=== PATIENT | female | born 1990 | race Caucasian/White ===

== ENCOUNTER 2022-12-25 10:57 | Outpatient (OUT) | payer OTHER, SELFPAY ==
[2022-12-25 11:55] LABS: Basophils Percent Auto 0.2 % (0.2-2.0); Eosinophils Absolute Auto 0.1 10^3/uL (0.0-0.7); Hematocrit 41.6 % (36.0-48.0); Hemoglobin 13.6 g/dL (12.0-16.0); Immature Granulocytes Abs Auto 0.01 10^3/uL (0.00-0.03); Immature Granulocytes Pct Auto 0.2 % (0.0-0.5); Lymphocytes Absolute Auto 1.7 10^3/uL (1.2-3.8); Lymphocytes Percent Auto 30.3 % (20.5-60.0); Mean Corpuscular HGB Conc 32.7 g/dL (29.9-35.2); Mean Corpuscular Hemoglobin 25.8 pg (26.7-34.0); Mean Corpuscular Volume 78.9 fL (81.0-99.0); Mean Platelet Volume 10.2 fL (9.5-13.5); Monocytes Absolute Auto 0.4 10^3/uL (0.3-0.8); Monocytes Percent Auto 6.3 % (1.7-12.0); Neutrophils Absolute Auto 3.6 10^3/uL (1.4-6.5); Platelet Count 295 10^3/uL (150-450); Red Blood Count 5.27 10^6/uL (4.20-5.40); Red Cell Distribution Width 13.8 % (11.0-15.0); White Blood Count 5.7 10^3/uL (4.0-11.0)
--- NOTE | 2022-12-25 12:02 | ECG_ITS ---
[facility] Test Date: 2022-12-25 Pat Name: Chelsey Huynh Department: Room: - Gender: Female Dietary Aid: : 1990 Requested By: [id number] Order Number: [id number] Reading MD: VIOLETA BUCHANAN Measurements Intervals [place] Rate: 74 P: 66 AL: 184 QRS: 87 QRSD: 93 T: 23 QT: 374 QTc: 416 Interpretive Statements SINUS RHYTHM NONSPECIFIC T-WAVE ABNORMALITY No previous ECG available for comparison Electronically Signed On 12-26-2022 7:17:42 EDT by VIOLETA BUCHANAN
[2022-12-25 12:59] LABS: Alanine Aminotransferase 20 U/L (14-59); Albumin Globulin Ratio 0.9; Albumin Level 3.9 g/dL (3.4-5.0); Alkaline Phosphatase 56 U/L (46-116); Anion Gap 12.8; Aspartate Amino Transferase 14 U/L (15-37); Bilirubin Total 0.4 mg/dL (0.2-1.0); Calcium 9.1 mg/dL (8.5-10.1); Carbon Dioxide 27.3 mmol/L (21.0-32.0); Chloride 102 mmol/L (98-107); Estimated GFR (African America >60 (>=60); Estimated GFR (Non-African Ame >60 (>=60); Globulin 4.2 g/dL; Glucose 98 mg/dL (74-106); Potassium 4.1 mmol/L (3.5-5.1); Sodium 138 mmol/L (136-145); Total Protein 8.1 g/dL (6.4-8.2)
[2022-12-25 13:09] LABS: Thyroid Stimulating Hormone 1.839 uIU/mL (0.358-3.740)
== END 2022-12-25 10:58 ==
LOC: LAB 11:06
PROVIDERS: PCP Nurse Practitioner Family; Visit Provider Psychiatry & Neurology Psychiatry
DX: F42.9 Obsessive-compulsive disorder, unspecified (principal); F41.9 Anxiety disorder, unspecified; Z79.899 Other long term (current) drug therapy
CPT/HCPCS: 36415; 80053; 82306; 84443; 85025; 93005

== ENCOUNTER 2023-01-04 07:59 | Outpatient (OUT) | payer OTHER, SELFPAY ==
--- NOTE | 2023-01-04 08:08 | US_ITS ---
[address] [address] Patient Name: ROMANA VALLES MRN: [id number] date: 1990 Sex: F Assigned Patient Location: Current Patient Location: [place] Accession/Order Number: [id number] Exam Date: 01/04/2023 08:14 Report Date: 01/04/2023 08:49 At the request of: NERISSA FREEMAN Procedure: US pelvis transvaginal EXAM: US pelvis transvaginal HISTORY: . Vaginal Bleeding N93.9 . COMPARISON: None. TECHNIQUE: Transvaginal scanning was performed FINDINGS: Scanning of the pelvis demonstrates an anteverted uterus measuring 10 x 5.5 x 5 cm. Endometrial complex measures 14 mm. Right ovary measures 2.3 x 2 x 2.1 cm. Color-flow is noted. Resistive indexes 0.45. No masses are noted. Left ovary measures 3.1 x 2.3 x 2.2 cm. Color-flow is noted. Resistive indexes 0.45. Small follicles are noted. No fluid is noted in the cul-de-sac. IMPRESSION: 1. Anteverted uterus. 2. Endometrial complex is prominent measuring 14 mm. Findings could be due to the patient's menstrual cycle or endometrial hyperplasia. 3. Normal-appearing ovaries. Electronically authenticated by: GEOFF ANDREWS Date: 01/04/2023 08:49
== END 2023-01-04 08:00 ==
LOC: US 08:00
PROVIDERS: PCP Nurse Practitioner Family; Visit Provider Physician Assistant
DX: N93.9 Abnormal uterine and vaginal bleeding, unspecified (principal)
CPT/HCPCS: 76830

== ENCOUNTER 2024-11-09 07:57 | Outpatient (OUT) | payer BC, SELFPAY ==
[2024-11-09 08:52] LABS: Basophils Percent Auto 0.3 % (0.2-2.0); Eosinophils Absolute Auto 0.1 10^3/uL (0.0-0.7); Eosinophils Percent Auto 2.2 % (0.9-7.0); Hematocrit 38.7 % (36.0-48.0); Hemoglobin 12.4 g/dL (12.0-16.0); Immature Granulocytes Abs Auto 0.02 10^3/uL (0.00-0.03); Immature Granulocytes Pct Auto 0.3 % (0.0-0.5); Lymphocytes Percent Auto 33.6 % (20.5-60.0); Mean Corpuscular Hemoglobin 26.6 pg (26.7-34.0); Mean Corpuscular Volume 82.9 fL (81.0-99.0); Mean Platelet Volume 10.1 fL (9.5-13.5); Monocytes Absolute Auto 0.4 10^3/uL (0.3-0.8); Monocytes Percent Auto 6.4 % (1.7-12.0); Neutrophils Absolute Auto 3.4 10^3/uL (1.4-6.5); Neutrophils Percent Auto 57.2 % (43.0-75.0); Platelet Count 279 10^3/uL (150-450); Red Blood Count 4.67 10^6/uL (4.20-5.40); Red Cell Distribution Width 12.7 % (11.0-15.0)
[2024-11-09 09:30] LABS: Estimated Average Glucose 111 mg/dL; Glycohemoglobin A1C 5.5 % (4.5-6.2)
[2024-11-09 09:32] LABS: Alanine Aminotransferase 13 U/L (14-59); Albumin Level 3.6 g/dL (3.4-5.0); Alkaline Phosphatase 51 U/L (46-116); Anion Gap 12.2; Aspartate Amino Transferase 14 U/L (15-37); BUN Creatinine Ratio 11.8; Bilirubin Total 0.3 mg/dL (0.2-1.0); Calcium 8.8 mg/dL (8.5-10.1); Chloride 104 mmol/L (98-107); Chol HDL Ratio 2.4; Cholesterol 172 mg/dL (<=200); Estimated GFR (African America >60 (>=60 mL/min/1.73m^2); Estimated GFR (Non-African Ame >60 (>=60 mL/min/1.73m^2); Free T3 2.74 pg/mL (2.18-3.98); Globulin 3.5 g/dL; Glucose 93 mg/dL (74-106); HDL Cholesterol 72 mg/dL (40-60); Potassium 4.2 mmol/L (3.5-5.1); Sodium 140 mmol/L (136-145); Thyroid Stimulating Hormone 1.973 uIU/mL (0.358-3.740); Total Protein 7.1 g/dL (6.4-8.2); Triglycerides 45 mg/dL (<=150)
[2024-11-10 08:11] LABS: Insulin 10.2 uIU/mL (2.6-24.9)
== END 2024-11-09 07:58 | disposition home or self-care (01) ==
LOC: LAB 08:01
PROVIDERS: PCP Nurse Practitioner Family; Visit Provider Nurse Practitioner Family
DX: Z00.00 Encounter for general adult medical examination without abnormal findings (principal)
CPT/HCPCS: 36415; 80053; 80061; 82306; 83036; 83525; 83540; 84436; 84443; 84481; 85025

== ENCOUNTER 2024-11-24 10:30 | Outpatient (OUT) | payer BC, SELFPAY ==
[2024-11-24 11:45] LABS: Basophils Percent Auto 0.2 % (0.2-2.0); Eosinophils Absolute Auto 0.1 10^3/uL (0.0-0.7); Eosinophils Percent Auto 1.7 % (0.9-7.0); Hematocrit 40.5 % (36.0-48.0); Hemoglobin 13.4 g/dL (12.0-16.0); Immature Granulocytes Abs Auto 0.01 10^3/uL (0.00-0.03); Immature Granulocytes Pct Auto 0.2 % (0.0-0.5); Lymphocytes Absolute Auto 1.9 10^3/uL (1.2-3.8); Lymphocytes Percent Auto 38.9 % (20.5-60.0); Mean Corpuscular HGB Conc 33.1 g/dL (29.9-35.2); Mean Corpuscular Hemoglobin 26.7 pg (26.7-34.0); Mean Corpuscular Volume 80.8 fL (81.0-99.0); Monocytes Absolute Auto 0.4 10^3/uL (0.3-0.8); Monocytes Percent Auto 9.2 % (1.7-12.0); Neutrophils Absolute Auto 2.4 10^3/uL (1.4-6.5); Neutrophils Percent Auto 49.8 % (43.0-75.0); Platelet Count 291 10^3/uL (150-450); Red Blood Count 5.01 10^6/uL (4.20-5.40); White Blood Count 4.8 10^3/uL (4.0-11.0)
[2024-11-24 12:19] LABS: Free T4 1.32 ng/dL (0.76-1.46)
[2024-11-24 12:24] LABS: HCG Quantitative <1 mIU/mL; Thyroid Stimulating Hormone 1.598 uIU/mL (0.358-3.740)
[2024-11-24 13:12] LABS: Estimated Average Glucose 120 mg/dL; Glycohemoglobin A1C 5.8 % (4.5-6.2)
[2024-11-25 04:11] LABS: Estradiol 34.6 pg/mL (.); FSH 7.4 mIU/mL (.); Progesterone 0.3 ng/mL (.)
[2024-11-30 13:08] LABS: DHEA, Serum 803 ng/dL (31-701)
== END 2024-11-24 10:31 | disposition home or self-care (01) ==
LOC: LAB 10:32
PROVIDERS: PCP Nurse Practitioner Family; Visit Provider Obstetrics & Gynecology
DX: E28.2 Polycystic ovarian syndrome (principal); N93.9 Abnormal uterine and vaginal bleeding, unspecified
CPT/HCPCS: 36415; 82626; 82627; 82670; 83001; 83002; 83036; 84144; 84439; 84443; 84702; 85025

== ENCOUNTER 2024-11-26 21:48 | Emergency (ER) | payer BC, SELFPAY ==
[2024-11-26] VITALS (8 sets, daily range): BP systolic 118–128; BP diastolic 79–80; PULSE 80–99; TEMP 36.7; O2SAT 100; BMI 30.3
--- NOTE | 2024-11-26 22:06 | ECG_ITS ---
[facility] Test Date: 2024-11-26 Pat Name: ROMANA VALLES Department: Room: - Gender: Female Folder Machine Operator: : 1990 Requested By: [id number] Order Number: [id number] Reading MD: FLAVIO SHARIF M.D. Measurements Intervals [place] Rate: 86 P: 63 AR: 172 QRS: 98 QRSD: 88 T: 6 QT: 358 QTc: 401 Interpretive Statements 1100 Sinus rhythm Nonspecific Twave abnormality 7102 Moderate right axis deviation 9150 abnormal ECG Compared to ECG 12/25/2022 12:05:27 No significant changes Electronically Signed On 11-27-2024 18:41:44 EDT by FLAVIO SHARIF M.D.
--- NOTE | 2024-11-26 22:16 | ED.SOB1 ---
HPI - SOB/Dyspnea General Chief Complaint: Shortness of Breath/Dyspnea Stated Complaint: SOB Time Seen by Provider: 11/26/24 21:55 Source: patient Mode of arrival: Wheelchair History of Present Illness HPI Narrative: This 34-year-old female who denies tobacco use but smokes marijuana presents for evaluation of shortness of breath, generalized weakness stating that her legs feel heavy, she feels dizzy and achy all over. She has mild nausea but has not vomited. She has not been coughing. Her significant other recently recovered from an upper respiratory infection. She denies any chest pain. She has not had any fever but is having some chills. Her symptoms started earlier this morning. She is not on control. She has no lower extremity pain or swelling. She is currently on Adipex for weight loss and admits that she is not eating and drinking a lot. Related Data Home Medications ?Medication ?Instructions ?Recorded ?Confirmed citalopram 20 mg tablet 20 mg PO DAILY 11/26/24 11/26/24 metformin 500 mg tablet,extended 500 mg PO DAILY 11/26/24 11/26/24 release 24 hr phentermine 37.5 mg tablet 37.5 mg PO QAM 11/26/24 11/26/24 Allergies Allergy/AdvReac Type Severity Reaction Status Date / Time acetaminophen (From Percocet) Allergy Severe Rash Verified 11/26/24 21:57 latex Allergy Severe Rash Verified 11/26/24 21:57 oxycodone (From Percocet) Allergy Severe Rash Verified 11/26/24 21:57 Review of Systems ROS Status of ROS 10 or more systems reviewed and unremarkable except as noted in history and below PFSH PFSH Social History Little interest or pleasure in doing things: not at all Feeling down, depressed, or hopeless: not at all Exam Narrative Exam Narrative: Vital signs and Nursing Notes reviewed: Patient is afebrile with a normal pulse, normal blood pressure, she is mildly tachypneic with a respiratory to 24, she has not hypoxic with pulse ox of 100% on room air General: Awake, alert, oriented, anxious, no respiratory distress, she is speaking in complete sentences HEENT: Normocephalic atraumatic, mucous membranes are moist and pink, eyes are clear, normal conjunctiva, vision is grossly intact, posterior pharynx is normal in appearance. Neck: Supple, no meningeal signs, no anterior or posterior cervical lymphadenopathy Chest: Lungs are clear to auscultation with good air entry, there is no wheezing rhonchi or rales appreciated no accessory muscle use, patient is speaking in complete sentences-no chest wall tenderness to palpation CVS: Regular rate and rhythm S1-S2, no murmurs rubs or gallops, pulses are brisk and equal bilaterally ABD: Soft, nondistended, nontender, no rebound guarding or rigidity, bowel sounds are normal, no pulsatile masses appreciated Extremities: Moving all extremities, no lower extremity tenderness or swelling noted, negative Homans' sign, pulses are brisk and equal bilaterally Skin: Normal in appearance without rash,pallor, petechiae or purpura Neuro: No focal deficits Constitutional Vital Signs, click to edit/add: Last Vital Signs Temp 98.1 F 11/26/24 21:53 Pulse 81 11/26/24 22:50 Resp 21 H 11/26/24 22:50 BP 118/79 11/26/24 22:37 Pulse Ox 100 11/26/24 22:50 O2 Del Method Room Air 11/26/24 22:03 Course Vital Signs Vital signs: Vital Signs Temperature 98.1 F 11/26/24 21:53 Pulse Rate 89 11/26/24 21:53 Respiratory Rate 24 H 11/26/24 21:53 Blood Pressure 128/80 11/26/24 21:53 Pulse Oximetry 100 11/26/24 21:53 Temperature 98.1 F 11/26/24 21:53 Pulse Rate 81 11/26/24 22:50 Respiratory Rate 21 H 11/26/24 22:50 Blood Pressure 118/79 11/26/24 22:37 Pulse Oximetry 100 11/26/24 22:50 Oxygen Delivery Method Room Air 11/26/24 22:03 MDM - SOB/Dyspnea MDM Narrative Medical decision making narrative: This 34-year-old female who is on Adipex and uses marijuana but otherwise is a non-smoker not on control presents for evaluation of shortness of breath, weakness, dizziness, vague nausea with no vomiting or diarrhea. She denies any chest pain, dizziness or diaphoresis. Her significant other recently had an upper respiratory tract infection. Patient's vital signs are stable. She was mildly tachypneic upon arrival. Her lungs are clear with no wheezing rhonchi or rales. Pulse ox is normal at 100%. EKG is a sinus rhythm at 86 bpm. An IV was placed and she was medicated with IV fluids, Zofran and Toradol. Routine labs are reviewed. She is negative for COVID-19 and influenza. She has a normal white count and hemoglobin. Electrolytes are normal but her creatinine is mildly elevated at 1.04. Troponin and D-dimer are both normal. Chest x-ray does not show any acute findings. Reevaluation she is tolerating clear liquids. Urine is contaminated but essentially negative for infection. I explained to her that she may have some degree of dehydration and be experiencing some symptoms related to her Adipex but she is otherwise well-appearing with a normal workup and will be discharged home with recommendation to increase her p.o. intake and return the emergency department for worsening symptoms or any concerns. Lab Data Attestation: I reviewed the patient's lab results. Labs: Lab Results 11/26/24 11/26/24 11/26/24 Range/Units 22:00 22:15 23:19 WBC 6.8 (4.0-11.0) 10^3/uL RBC 5.01 (4.20-5.40) 10^6/uL Hgb 13.6 (12.0-16.0) g/dL Hct 40.1 (36.0-48.0) % MCV 80.0 L (81.0-99.0) fL MCH 27.1 (26.7-34.0) pg MCHC 33.9 (29.9-35.2) g/dL RDW 12.7 (11.0-15.0) % Plt Count 294 (150-450) 10^3/uL MPV 10.2 (9.5-13.5) fL Neut % (Auto) 35.6 L (43.0-75.0) % Lymph % (Auto) 53.7 (20.5-60.0) % Labette % (Auto) 7.3 (1.7-12.0) % Eos % (Auto) 2.9 (0.9-7.0) % Baso % (Auto) 0.4 (0.2-2.0) % Neut # (Auto) 2.4 (1.4-6.5) 10^3/uL Lymph # (Auto) 3.7 (1.2-3.8) 10^3/uL Labette # (Auto) 0.5 (0.3-0.8) 10^3/uL Eos # (Auto) 0.2 (0.0-0.7) 10^3/uL Baso # (Auto) 0.0 (0.0-0.1) 10^3/uL Abs Immat Gran (auto) 0.01 (0.00-0.03) 10^3/uL Imm/Tot Granulo (auto) 0.1 (0.0-0.5) % D-Dimer 0.39 (<=0.59) mg/L FEU Sodium 136 (136-145) mmol/L Potassium 3.6 (3.5-5.1) mmol/L Chloride 103 (98-107) mmol/L Carbon Dioxide 25.5 (21.0-32.0) mmol/L Anion Gap 11.1 BUN 11.0 (7.0-18.0) mg/dL Creatinine 1.07 H (0.55-1.02) mg/dL Est GFR ( Amer) >60 (>=60 mL/min/1.73m^2) Est GFR (Non-Af Amer) 58 L (>=60 mL/min/1.73m^2) BUN/Creatinine Ratio 10.3 Glucose 114 H (74-106) mg/dL Calcium 9.5 (8.5-10.1) mg/dL Total Bilirubin 0.6 (0.2-1.0) mg/dL AST 21 (15-37) U/L ALT 17 (14-59) U/L Alkaline Phosphatase 58 (46-116) U/L Troponin I High Sens <4.0 L (4.0-51.3) pg/mL Total Protein 7.5 (6.4-8.2) g/dL Albumin 3.6 (3.4-5.0) g/dL Globulin 3.9 g/dL Albumin/Globulin Ratio 0.9 Urine Color (YELLOW) Urine Clarity (CLEAR) Urine pH (5.0-9.0) Ur Specific [place] (1.005-1.025) Urine Protein (NEG/TRACE) mg/dL Urine Glucose (UA) (NEGATIVE) mg/dL Urine Ketones (NEGATIVE) mg/dL Urine Occult Blood (NEGATIVE) Urine Nitrite (NEGATIVE) Urine Bilirubin (NEGATIVE) Urine Urobilinogen (0.2-1.0) EU/dL Ur Leukocyte Esterase (NEGATIVE) Urine RBC (0-2) #/HPF Urine WBC (NONE SEEN) #/HPF Ur Squamous Epith Cells (NONE/RARE) #/LPF Urine Crystals (None Seen) #/HPF Urine Bacteria (NONE SEEN) #/HPF Urine Casts (NONE SEEN) #/LPF Urine Mucus (NONE SEEN) Ur Culture Indicated? Influenza Type A Ag Negative Influenza Type B Ag Negative SARS-CoV-2 Ag (CV2AG) Negative (NEGATIVE) 11/26/24 Range/Units 23:54 WBC (4.0-11.0) 10^3/uL RBC (4.20-5.40) 10^6/uL Hgb (12.0-16.0) g/dL Hct (36.0-48.0) % MCV (81.0-99.0) fL MCH (26.7-34.0) pg MCHC (29.9-35.2) g/dL RDW (11.0-15.0) % Plt Count (150-450) 10^3/uL MPV (9.5-13.5) fL Neut % (Auto) (43.0-75.0) % Lymph % (Auto) (20.5-60.0) % Labette % (Auto) (1.7-12.0) % Eos % (Auto) (0.9-7.0) % Baso % (Auto) (0.2-2.0) % Neut # (Auto) (1.4-6.5) 10^3/uL Lymph # (Auto) (1.2-3.8) 10^3/uL Labette # (Auto) (0.3-0.8) 10^3/uL Eos # (Auto) (0.0-0.7) 10^3/uL Baso # (Auto) (0.0-0.1) 10^3/uL Abs Immat Gran (auto) (0.00-0.03) 10^3/uL Imm/Tot Granulo (auto) (0.0-0.5) % D-Dimer (<=0.59) mg/L FEU Sodium (136-145) mmol/L Potassium (3.5-5.1) mmol/L Chloride (98-107) mmol/L Carbon Dioxide (21.0-32.0) mmol/L Anion Gap BUN (7.0-18.0) mg/dL Creatinine (0.55-1.02) mg/dL Est GFR ( Amer) (>=60 mL/min/1.73m^2) Est GFR (Non-Af Amer) (>=60 mL/min/1.73m^2) BUN/Creatinine Ratio Glucose (74-106) mg/dL Calcium (8.5-10.1) mg/dL Total Bilirubin (0.2-1.0) mg/dL AST (15-37) U/L ALT (14-59) U/L Alkaline Phosphatase (46-116) U/L Troponin I High Sens (4.0-51.3) pg/mL Total Protein (6.4-8.2) g/dL Albumin (3.4-5.0) g/dL Globulin g/dL Albumin/Globulin Ratio Urine Color Lt. yellow (YELLOW) Urine Clarity Sl cloudy (CLEAR) Urine pH 7.0 (5.0-9.0) Ur Specific [place] 1.010 (1.005-1.025) Urine Protein Negative (NEG/TRACE) mg/dL Urine Glucose (UA) Negative (NEGATIVE) mg/dL Urine Ketones Negative (NEGATIVE) mg/dL Urine Occult Blood Moderate A (NEGATIVE) Urine Nitrite Negative (NEGATIVE) Urine Bilirubin Negative (NEGATIVE) Urine Urobilinogen 0.2 (0.2-1.0) EU/dL Ur Leukocyte Esterase Small A (NEGATIVE) Urine RBC 0-2 (0-2) #/HPF Urine WBC 5-10 A (NONE SEEN) #/HPF Ur Squamous Epith Cells Many A (NONE/RARE) #/LPF Urine Crystals None seen (None Seen) #/HPF Urine Bacteria Moderate A (NONE SEEN) #/HPF Urine Casts None seen (NONE SEEN) #/LPF Urine Mucus None seen (NONE SEEN) Ur Culture Indicated? [place] [place] Influenza Type A Ag Influenza Type B Ag SARS-CoV-2 Ag (CV2AG) (NEGATIVE) ECG Data Attestation: I personally reviewed and interpreted this ECG as follows: (EKG interpretation sinus rhythm at 90 bpm, right axis, normal intervals, no acute ST segment elevation or T wave inversion) Discharge Plan Discharge Chief Complaint: Shortness of Breath/Dyspnea Clinical Impression: Shortness of breath, Mild dehydration Patient Disposition: Home, Self-Care Time of Disposition Decision: 00:28 Condition: Good Prescriptions / Home Meds: No Action citalopram 20 mg tablet 20 mg PO DAILY metformin 500 mg tablet extended release 24 hr 500 mg PO DAILY phentermine 37.5 mg tablet 37.5 mg PO QAM Print Language: [place] Instructions: Dehydration (ED), Shortness of Breath (ED) Referrals: DANIEL MENJIVAR [Primary Care Provider, Family Practice] - 1 week
[2024-11-26 22:26] LABS: Basophils Percent Auto 0.4 % (0.2-2.0); Eosinophils Absolute Auto 0.2 10^3/uL (0.0-0.7); Eosinophils Percent Auto 2.9 % (0.9-7.0); Hematocrit 40.1 % (36.0-48.0); Hemoglobin 13.6 g/dL (12.0-16.0); Immature Granulocytes Abs Auto 0.01 10^3/uL (0.00-0.03); Immature Granulocytes Pct Auto 0.1 % (0.0-0.5); Lymphocytes Absolute Auto 3.7 10^3/uL (1.2-3.8); Lymphocytes Percent Auto 53.7 % (20.5-60.0); Mean Corpuscular HGB Conc 33.9 g/dL (29.9-35.2); Mean Corpuscular Hemoglobin 27.1 pg (26.7-34.0); Mean Platelet Volume 10.2 fL (9.5-13.5); Monocytes Absolute Auto 0.5 10^3/uL (0.3-0.8); Monocytes Percent Auto 7.3 % (1.7-12.0); Neutrophils Absolute Auto 2.4 10^3/uL (1.4-6.5); Neutrophils Percent Auto 35.6 % (43.0-75.0); Platelet Count 294 10^3/uL (150-450); Red Blood Count 5.01 10^6/uL (4.20-5.40); Red Cell Distribution Width 12.7 % (11.0-15.0); White Blood Count 6.8 10^3/uL (4.0-11.0)
[2024-11-26] MEDS: ONDANSETRON PF 4 MG/2 ML VIAL IV (22:31)
[2024-11-26] MEDS: KETOROLAC TROMETHAMINE 30 MG/ML VIAL IVP (22:31)
[2024-11-26] MEDS: 0.9 % SODIUM CHLORIDE 1,000 ML 1000 ML IV (22:32)
[2024-11-26 22:38] LABS: Influenza Virus A Antigen Negative; Influenza Virus B Antigen Negative; Internal Control Within Normal Limits; SARS-CoV-2 Ag NEGATIVE (NEGATIVE)
[2024-11-26 22:42] LABS: Anion Gap 11.1
[2024-11-26 22:44] LABS: Alanine Aminotransferase 17 U/L (14-59); Albumin Globulin Ratio 0.9; Albumin Level 3.6 g/dL (3.4-5.0); Alkaline Phosphatase 58 U/L (46-116); Aspartate Amino Transferase 21 U/L (15-37); BUN Creatinine Ratio 10.3; Bilirubin Total 0.6 mg/dL (0.2-1.0); Calcium 9.5 mg/dL (8.5-10.1); Carbon Dioxide 25.5 mmol/L (21.0-32.0); Chloride 103 mmol/L (98-107); Estimated GFR (African America >60 (>=60 mL/min/1.73m^2); Estimated GFR (Non-African Ame 58 (>=60 mL/min/1.73m^2); Globulin 3.9 g/dL; Glucose 114 mg/dL (74-106); Potassium 3.6 mmol/L (3.5-5.1); Sodium 136 mmol/L (136-145); Total Protein 7.5 g/dL (6.4-8.2); Troponin I High Sensitivity <4.0 pg/mL (4.0-51.3)
[2024-11-26 23:40] LABS: D Dimer 0.39 mg/L FEU (<=0.59)
[2024-11-27 00:01] LABS: Bilirubin Urine NEGATIVE (NEGATIVE); Blood Urine MODERATE (NEGATIVE); Clarity Urine SL CLOUDY (CLEAR); Color Urine LT. YELLOW (YELLOW); Glucose Urine UA NEGATIVE (NEGATIVE); Ketones Urine NEGATIVE (NEGATIVE); Leukocyte Esterase Urine SMALL (NEGATIVE); Nitrite Urine NEGATIVE (NEGATIVE); Protein Urine NEGATIVE (NEG/TRACE); Urobilinogen Urine 0.2 EU/dL (0.2-1.0)
[2024-11-27 00:12] LABS: Bacteria Urine MODERATE #/HPF (NONE SEEN); Cast Seen? NONE SEEN #/LPF (NONE SEEN); Crystals Seen? None Seen #/HPF (None Seen); Mucus Urine NONE SEEN (NONE SEEN); RBC Urine 0-2 #/HPF (0-2); Squamous Epithelial Cell Urine MANY #/LPF (NONE/RARE); Urine Culture Indicated YES-FRMC
== END 2024-11-27 00:48 | disposition home or self-care (01) ==
PROVIDERS: Emergency Provider Emergency Medicine; PCP Nurse Practitioner Family
DX: R06.02 Shortness of breath (principal); E86.0 Dehydration
CPT/HCPCS: 36415; 71046; 80053; 81001; 84484; 85025; 85378; 87086; 87804; 87811; 93005; 96361; 96374; 96375; 99285; J1885; J2405

== ENCOUNTER 2024-12-11 08:13 | Outpatient (OUT) | payer BC, SELFPAY ==
--- OUTSIDE RECORDS SUMMARY | 2016-08-15 06:31 | XMS_ITS | Continuity of Care Document ---
Author Organization [facility] Address [address] [place] [address] Phone Care Team Providers Care Ship Pilot Name Role Phone Boots, , Bev Unavailable Unavailable Allergies, Adverse Reactions, Alerts Substance Reaction Status Criticality OXYCODONE HCL itchy palms, turn red, hot Active No Information acetaminophen itchy palms, turn red, hot Active No Information Medications Medication Instructions Dosage Effective Dates (start - stop) Status Comments clomiphene citrate 50 mg tablet take 2 tablet by oral route every day 100 MG - Active days 3 thru 7 of menstraul cycle Provera 10 mg tablet take 1 tablet by oral route every day 10 MG - Active take days 18-28 of cycle month Aygestin 5 mg tablet take 1 tablet po bid for four weeks - Active clomiphene citrate 50 mg tablet take 2 tablet by oral route every day 100 MG - No Longer Active days 3 thru 7 of menstraul cycle Procedures Procedure Date OFFICE/OUTPATIENT VISIT, EST Urin Pg Test Visual Color Comp 16 OFFICE/OUTPATIENT VISIT, EST Echo Transvaginal OFFICE/OUTPATIENT VISIT, EST OFFICE/OUTPATIENT VISIT, EST Post Visit Postop F/u Visit Incld Global 1 Postop F/u Visit Incld Global 1 Postop F/u Visit Incld Global 1 Routine Ob Care Incl C Sect Visit Visit Echo Pg Uterus B scan W/doc R 1 Visit Visit Visit Ob Nurse Echo Pg Uterus B scan W/doc R 1 Visit Visit Ob Nurse Visit Visit Visit Echo Pg Uterus B scan W/doc R 1 Echo Pg Uterus B scan W/doc R 1 Offic/outpt E&m Estab 5 Min Offic/outpt E&m Estab 5 Min Echo Pg Uterus B scan Complt Visit Visit Ob Nurse Ultrasound W/image Fet/mat 14 1 OB US NUCHAL LEONEL, 1 GEST CAPILLARY BLOOD DRAW Handl/convey Specmn offic To L 11 Visit Copay Received OB US < 14 WKS, SINGLE FETUS TRANSVAGINAL US, OBSTETRIC Screen Pap Obtain Prep Convey 1 Urin Pg Test Visual Color Comp 11 Initial OB New Patient Advance Directives Directive Yes / No Effective Date File Name No Information Encounters Encounter Description Practice Location Reason(s) For Visit Diagnoses Date Provider Providers Copied on Encounter [facility], [facility] [place], [address], [place] tel:[phone] [facility] No Information 7 DO Bev Reynolds. [address] [place] [address], [id number], [place]. tel:[phone] OFFICE/OUTPA TIENT VISIT, EST [facility], [facility] [place], [address], [place] tel:[phone] [place] Missed Period (chief complaint) Encounter for test, result negativeFema le infertility, unspecified 6 Adam Fabian. [facility] [address] [place], [place], [id number], [place]. tel:[phone] Referring Provider: Rui Sosa, [facility], [address]. tel:[phone] OFFICE/OUTPA TIENT VISIT, [facility], [address] [place] [address], [address], [place] tel:[phone] [place] f/up results (chief complaint) Female infertility, unspecified 6 Adam Fabian. [address] [place], [place] [address]lázaro [place], [place], [id number], [place]. tel:[phone] Referring Provider: uRi Sosa, [facility], [address]. tel:[phone] [facility], [facility] [place], [address], [place] tel:[phone] [place] No Information 6 Adam Fabian. [facility] [place], [id number], [place]. tel:[phone] Referring Provider: Rui Sosa, [facility], [address]. tel:[phone] OFFICE/OUTPA TIENT VISIT, [facility], [address] [place] [address], [address], [place] tel:[phone] [place] Infertility consult (chief complaint) Irregular menstruation , unspecifiedE ncounter for oth general cnsl and advice on procreation 6 Adam Fabian. [address] [place], [place], [id number], [place]. tel:[phone] Referring Provider: Rui Sosa, [facility] [place], [address]. tel:[phone] OFFICE/OUTPA TIENT VISIT, EST [facility], [address] [place] [address], [address], [place] tel:[phone] [place] spotting (chief complaint) Irregular Menstruation 3 Renee Bryant. [address] [place], [place] [address]lázaro [place], [place], [id number], [place]. tel:[phone] Referring Provider: Manny Mccormick, [facility], [address]. tel:[phone] Post Visit [facility], [address] [place] [address], [address], [place] tel:[phone] [place] 6wk post (chief complaint) Contraceptiv e Mangmt NecRout Postpart Follow-up 2 Renee Bryant. [facility] [place], [place], [id number], [place]. tel:[phone] Referring Provider: Manny Mccormick, [facility], [address]. tel:[phone] [facility], [address] [place] [address], [address], [place] tel:[phone] [place] rash around incision site (chief complaint) Rout Postpart Follow-up 1 Renee Bryant. [facility] [place], [id number], [place]. tel:[phone] Referring Provider: Manny Mccormick, [facility] [place], [address]. tel:[phone] [facility], [address] [place] [address], [address], [place] tel:[phone] [place] 2wk post (chief complaint) Rout Postpart Follow-up Jun-2 0 1 Renee Bryant. [address] [place], [place] [address]under[place], [place], [id number], [place]. tel:[phone] Referring Provider: Manny Mccormick, [address] [place], [place] [address] [place], [address]. tel:[phone] [facility], [address] [place] [address], [address], [place] tel:[phone] [place] staple removal (chief complaint) Rout Postpart Follow-upATT N REMOVAL OF SUTURES Jun-0 1 Renee Bryant. [address] [place], [place] [address] [place], [id number], [place]. tel:[phone] Referring Provider: Manny Mccormick, [address] [place], [place] [address] [place], [address]. tel:[phone] [facility], [address] [place] [address], [address], [place] tel:[phone] [facility] No Information 0 1 Renee Bryant. [facility] [address] [place], [id number], [place]. tel:[phone] Referring Provider: Manny Mccormick, [address] [place], [place] [address]er[place], [address]. tel:[phone] Visit [facility], [address] [place] [address], [address], [place] tel:[phone] [facility] No Information 3 0 1 Renee Bryant. [address], [place], [place], [id number], [place]. tel:[phone] Referring Provider: Manny Mccormick, [address], [place], [address]. tel:[phone] Visit [facility], [address] [facility] [place], [address], [place] tel:[phone] [place] No Information 1 Renee Bryant. [address], [place], [place], [id number], [place]. tel:[phone] Referring Provider: Manny Mccormick, [address] , [place], [address]. tel:[phone] [facility], [address] [facility] [place], [address], [place] tel:[phone] [place] No Information 1 Renee Bryant. [address], [place], [place], [id number], [place]. tel:[phone] Referring Provider: Manny Mccormick, [address] , [place], [address]. tel:[phone] Visit [facility], [address] [place], [address], [place] tel:[phone] [place] Preg W Hx Of 1 Renee Bryant. [address], [place], [place], [id number], [place]. tel:[phone] Referring Provider: Manny Mccormick, [address], [place], [address]. tel:[phone] Visit [facility], [address] [facility] [place], [address], [place] tel:[phone] [place] Preg W Hx Of 1 Renee Bryant. [address], [id number], [place]. tel:[phone] Referring Provider: Manny Mccormick, [address] [place], [address]. tel:[phone] Visit Ob Nurse [facility], [address] [place] [address], [address], tel:[phone] [place] ROCÍO (chief complaint) No Information 1 Manny Rubio. [address], [place], [address], [place]. tel:[phone] Referring Provider: Manny Mccormick, [facility] [place], [address]. tel:[phone] [facility], [address] [place] [address], [facility], tel:[phone] [facility] No Information 1 Renee Bryant. [facility] [address] Jesus[address] [place], [place], [id number], [place]. tel:[phone] Referring Provider: Manny Mccormick, [facility] [place], [address]. tel:[phone] Visit [facility], [address] [place] [address], [address], [place] tel:[phone] [place] ROCÍO (chief complaint) Preg W Hx Of 1 Renee Bryant. [address] [place], [place], [id number], [place]. tel:[phone] Referring Provider: Manny Mccormick, [facility] [place], [address]. tel:[phone] Visit Ob Nurse [facility], [address] [place] [address], [address], tel:[phone] [place] ROCÍO (chief complaint) No Information Sep-2 1 Manny Rubio. [address], [address], [place], [address], [place]. tel:[phone] Referring Provider: Manny Mccormick, [facility] [address], [place], [address]. tel:[phone] Visit [facility], [address] [place] [address], [address], tel:[phone] [place] ROCÍO (chief complaint) No Information Mar- 1 Renee Bryant. [facility] [address], [id number], [place]. tel:[phone] Referring Provider: Manny Mccormick, [facility] [place], [address]. tel:[phone] Visit [facility], [address] [place] [address], [address], tel:[phone] [place] ROCÍO (chief complaint) No Information Sep-0 1 Renee Bryant. [facility] [place] [address], [id number], [place]. tel:[phone] Referring Provider: Manny Mccormick, [facility] [place], [address]. tel:[phone] Visit [facility], [address] [place] [address], [address], tel:[phone] [place] ROCÍO (chief complaint) No Information 1 Renee Bryant. [facility] [address], [id number], [place]. tel:[phone] Referring Provider: Manny Mccormick, [address] [place], [place] [address]bird , [place], [address]. tel:[phone] [facility], [address] [place] [address], [address], tel:[phone] [place] No Information 1 Renee Bryant. [address] [place], [place] [address] , [place], [place], [id number], [place]. tel:[phone] Referring Provider: Manny Mccormick, [address] [place], [place] [address], [address]. tel:[phone] [facility], [address] [place] [address], [facility], tel:[phone] [place] No Information 1 Renee Bryant. [address] [place], [place] [address], [id number], [place]. tel:[phone] Referring Provider: Manny Mccormick, [address] [place], [place] [address], [address]. tel:[phone] Offic/outpt E&m Estab 5 Min [facility], [address] [place] [address], [facility], tel:[phone] [place] ROCÍO (chief complaint) No Information 1 Manny Rubio. [address], [address], [place], [address], [place]. tel:[phone] Referring Provider: Manny Mccormick, [address] [place], [place] [address], [address]. tel:[phone] Offic/outpt E&m Estab 5 Min [facility], [address] [place] [address], [address], [place] tel:[phone] [place] ROCÍO (chief complaint) No Information 0 1 Manny Rubio. [address], [address], [place], [address], [place]. tel:[phone] Referring Provider: Manny Mccormick, [address] [place], [place] [address], [address]. tel:[phone] [facility], [address] [place] [address], [address], [place] tel:[phone] [place] No Information 0 1 Renee Bryant. [address] [place], [place] [address], [id number], [place]. tel:[phone] Referring Provider: Manny Mccormick, [address] [place], [place] [address], [address]. tel:[phone] Visit [facility], [address] [place] [address], [address], [place] tel:[phone] [place] ROCÍO (chief complaint) No Information 1 Renee Bryant. [address] [place], [place] [address], [id number], [place]. tel:[phone] Referring Provider: Manny Mccormick, [address] [place], [place] [address], [address]. tel:[phone] Visit Ob Nurse [facility], [address] [place] [address], [address], [place] tel:[phone] [place] ROCÍO (chief complaint) No Information 1 Sybil Snider. [address] [place], [place], [id number], [place]. tel:[phone] Referring Provider: Manny Mccormick, [facility] [place], [address]. tel:[phone] [facility], [address] [place] [address], [facility], tel:[phone] [place] No Information 1 Renee Bryant. [address] [place] [address], [id number], . tel:[phone] Referring Provider: Manny Mccormick, [address] [place] [address], [address]. tel:[phone] Visit [facility], [address] [place] [address], [facility], tel:[phone] [place] ROCÍO (chief complaint) No Information 1 Renee Bryant. [address] [place] [address], [id number], . tel:[phone] Referring Provider: Manny Mccormick, [address] [place] [address], [address]. tel:[phone] Initial OB New Patient [facility], [address] [place] [address], [facility], tel:[phone] [place] NOB (chief complaint) UTERINE SIZE DORI-ANTEPARP reg W Hx Of AbortionScre en Mal Neop-cervix 1 Renee Bryant. [address] [place], [place] [address]radhaavi [place], [id number], . tel:[phone] Referring Provider: Manny Mccormick, [address] [place], [place] [address] [place], [address]. tel:[phone] Family History Family Member Type Diagnosis Age At Onset Paternal grandmother Problem (finding) malignant neopl asm of pancreas 84 Payers Payer name Insurance type Covered alliance party ID Authoriza tion(s) No Information Social History Type Description Quantity Date Captured Comments Sex Female Smoking Status No Information Chief Complaint And Reason For Visit No Information Reason For Referral Reason For Referral No Information Plan Of Treatment Date Type Action Status Referral Ordered: Hysterosalpingography rad S & ordered Future Order: Lab Order Progenit y - Ovarian Assessment Report ([id number]), Ordered on: Ordered Future Order: Radiology Order US - Pelvic with Endo Vag ([id number]), Sent on: Sent History Of Present Illness Encounter Date Complaint History Of Prese nt Illness Missed Period OVULATED 2/3 MAYELA ES WITH CLOMID- PREG TEST NEG TODAY- RESTART PROVERA AND CLOMID NEXT MONTH- CHECK OAR DAY 3 OF CYCLE- IF FAILS TO CONCEIVE WITH 6 CYCLES OF OVULATION WITH CLOMID- THEN REFER ONTO LASHONDA f/up results infertile past y ear- still needs to do SA-nl hsg and tsh and prolactin- not ovulating per ovulation testing - menses q 26-30 days-will start provera days 18-28 and clomid days 3-7 of next cycle with ovulation testing days 11-21 and timed intercourse then if ovulatory- understands instructions- risks of multiples discussed Infertility consult unable to co nceive past year- no ovulation past momnth with kits- periods irregular- no prior med hx- proceed with tsh-prolactin- hsg- SA- pelvic sono-then after all labs reviewed- discuss next appt starting provera and clomid- Functional Status Date Functional Assessmen t No Information Instructions Date Instruction Additional Infor mation No Information Assessments Type Assessment Date No Information Patient Care Teams Name Effective Dates (start - stop) Status Members No Information
--- OUTSIDE RECORDS SUMMARY | 2017-01-10 02:33 | XMS_ITS | Continuity of Care Document ---
Author Organization [facility] Address [address] [place] [address] Phone Care Team Providers Care Sales Enablement Lead Name Role Phone Bev Yap Unavailable Unavailable Allergies, Adverse Reactions, Alerts Substance Reaction Status Criticality OXYCODONE HCL Itching Active No Information acetaminophen Itching Active No Information No Known Drug Allergies Active No I nformation Medications Medication Instructions Dosage Effective Dates (start - stop) Status Comments FLUOXETINE HCL 20 MG CAPSULE TAKE ONE CAPSULE BY MOUTH IN THE MORNING 20 MG - Active FLUOXETINE HCL 20 MG CAPSULE TAKE ONE CAPSULE BY MOUTH IN THE MORNING 20 MG - No Longer Active Procedures Procedure Date Offic/outpt E&m Estab [facility] Offic/outpt E&m Estab [facility] Offic/outpt E&m Estab [facility] Offic/outpt E&m Estab [facility] Offic/outpt E&m Estab [facility] Pt Not Seen Offic/outpt E&m Estab [facility] [place] 4 Agt-immunassay Dir Obs; Strep 1 Offic/outpt E&m Estab Mod-wy 2 11 Offic/outpt E&m Estab [facility] 0 Agt-immunassay Dir Obs; Strep 0 Offic/outpt E&m Estab Mod-wy 2 10 Offic/outpt E&m Estab Mod-hi 2 10 Offic/outpt E&m Estab Low-mod 9 Offic/outpt E&m Estab Low-mod 9 Offic/outpt E&m Estab Mod-hi 2 09 Ua Dip Stik/tablt;wo Micro Non 09 Offic/outpt E&m New Mod Sever 9 Advance Directives Directive Yes / No Effective Date File Name No Information Encounters Encounter Description Practice Location Reason(s) For Visit Diagnoses Date Provider Providers Copied on Encounter [facility], [address] [place] [address], [id number] , tel: [phone] [facility] No Information 7 Tim Pablo. [address] [place] [address], [id number], [place]. tel:[phone] [facility], [address], [id number] , [place] tel: [phone] [facility] No Information 7 Tim Pablo. [address] [place] [address], [id number], [place]. tel:[phone] Offic/outpt E&m Estab Lowmod [facility], [address], [id number] , tel: [phone] [facility] ocd (chief complaint) Body mass index (BMI) 26.0-26.9, adultPersistent anxiety depressionObsessive -compulsive disorder [address] Pablo[address] [place] [address], [id number], [place]. tel:[phone] Offic/outpt E&m Estab Lowmod [facility], [address] [place] [address], [id number] , tel: [phone] [facility] f/u meds (chief complaint) Obsessive-compulsiv e disorders 5 Tim GRADUATE STUDENT INSTRUCTOR-C Bev. [address] [place] [address], [id number], [place]. tel:[phone] Offic/outpt E&m Estab Lowmod [facility], [address] [place] [address], [id number] , [place] tel: [phone] [facility] depression- med review (chief complaint) BMI 25.0-25.9,ADULTObse ssive-compulsive disorders 4 Tim GRADUATE STUDENT INSTRUCTOR-C Bev. [address] [place] [address], [id number], [place]. tel:[phone] [facility], [address], [id number] , [place] tel: [phone] [facility] OCD (chief complaint) Obsessive-compulsiv e disorders 4 Tim MARTINEZP-C Bev. [address], [id number], [place]. tel:[phone] [facility], [address] [place] [address], [id number] , [place] tel: [phone] [facility] depression (chief complaint)m issed period (chief complaint) Depression W/AnxeityCONTRACEPT RUBY MANGMT NEC 4 Tim GRADUATE STUDENT INSTRUCTOR-C Bev. [address], [id number], [place]. tel:[phone] Offic/outpt E&m Estab Lowmod [facility], [address] [place] [address], [id number] , [place] tel: [phone] [facility] depression (chief complaint) Depression W/AnxeityOBSESSIVE- COMPULSIVE DIS 4 Tim Pablo. [address] [place] [address], [id number], [place]. tel:[phone] [facility], [address], [id number] , [place] tel: [phone] [facility] No Information 1 Tree [facility]. [address], [id number], [place]. tel:[phone] Offic/outpt E&m Estab Mod-hi 2 [facility], [address], [id number] , [place] tel: [phone] [facility] cough (chief complaint) Throat PainVertigo/Light headedness 1 Tree [facility]. [address], [id number], [place]. tel:[phone] Offic/outpt E&m Estab Low-mod [facility], [address], [id number] , [place] tel: [phone] [facility] cold symptoms (chief complaint) Pharyngitis Acute 0 Jay Ascencio. [address] [facility], [address], [address], [place]. tel:[phone] Offic/outpt E&m Estab Mod-hi 2 [facility], [address], [id number] , [place] tel: [phone] [facility] cold symptoms (chief complaint) Congestion Nasal/Sinuses 0 Tree [facility] Or[facility]. [address], [id number], [place]. tel:[phone] Offic/outpt E&m Estab Mod-hi 2 [facility], [address], [id number] , [place] tel: [phone] [facility] headache (chief complaint) HeadacheVertigo/Lig ht headednessDepressiv e Disorder Nec [address] Tree Ortega. [address] [place], [place], [id number], [place]. tel:[phone] Offic/outpt E&m Estab Low-mod [facility], [address] [place] [address], [id number] , [place] tel: [phone] [facility] cough (chief complaint) Bronchitis AcuteBronchitis Acute 3200 9 Dilip Iglesias. [address] [place], [place], [id number], [place]. tel:[phone] Offic/outpt E&m Estab Low-mod [facility], [address] [place] [address], [id number] , [place] tel: [phone] [facility] cough (chief complaint) Viral Infection Nos 6200 9 Tree [facility] Ortega. [address] [place], [place], [id number], [place]. tel:[phone] Offic/outpt E&m Estab Mod-hi 2 [facility], [address] [place] [address], [id number] , [place] tel: [phone] [facility] Note Return to work (chief complaint) Headache [address], [place], [address], [place]. tel:[phone] Offic/outpt E&m New Mod Sever [facility], [address] [place], [id number] , [place] tel: [phone] [facility] Urinary problems (chief complaint) No Information 8-200 9 Tree [facility] Or[facility]ga. [address] [place], [place], [id number], [place]. tel:[phone] Family History Family Member Type Diagnosis Age At Onset Father Problem (finding) hypertension Father Problem (finding) diabetes melli tus in first degree relative Payers Payer name Insurance type Covered constitution party ID Authorjarett botello(s) Self Pay CI Social History Type Description Quantity Date Captured Comments Sex Female Smoking Status No Information Chief Complaint And Reason For Visit No Information Reason For Referral Reason For Referral No Information Plan Of Treatment Date Type Action Status Goal H&P. Due on due Goal Influenza vaccine. Due on due Goal PAP. Due on due Goal Breast exam. Due on 017 due Goal PERSONAL PROPERTY ASSESSOR exam. Due on due Goal Dietary management education , guidance, and counseling completed Goal Breast exam. Due on 014 due Goal PERSONAL PROPERTY ASSESSOR exam. Due on due Goal Influenza vaccine. Due on due Goal Diabetes Screening. Due on due Goal H&P. Due on due Goal PAP. Due on due Goal Depression screening. Due on due Goal Diabetes Screening. Due on due Goal PAP. Due on due Goal PERSONAL PROPERTY ASSESSOR exam. Due on due Goal Breast exam. Due on 014 due Goal Influenza vaccine. Due on due Goal H&P. Due on due Goal Dietary management education , guidance, and counseling completed Goal Diabetes Screening. Due on A due Goal PAP. Due on due Goal Influenza vaccine. Due on due Goal H&P. Due on due History Of Present Illness Encounter Date Complaint History Of Prese nt Illness ocd stopped fluoxeti n about 1 year ago, was hoping for a and wanted to be off all medications. she admits that she has been ok for a few months but her symptoms of anxiety, depression, and obsessive thoughts about fear of being a bad mom have progressively worsened over the last 6 months. she has talked with her HOOP PUNCH AND COILER OPERATOR who agrees with her restarting her medications and that she can continue it through . not suicidal. f/u meds taking the fluox etine every day, OCD, depression, and anxiety stable. is contemplating trying for another and would like to not take any medication during so asking about how to wean off depression-med review (comments) feels like the fluoxetine is working better, not having as many of her depressive symptoms. still has some days where she feels her ocd is difficult to manage but these days are rare now. will get fears that something will happen to her son. feels like this is improving, denies any thoughts of suicide or feelings that she will want to her herself or anyone else. feels like her mood is more stable than it has been in a long time. not seeing the counselor as much as she was depression-med review OCD tried higher dos e of paroxetine but made her unable to function due to extreme fatigue. feels like the paroxetine is not controlling her symptoms. is also seeing a therapist who recommended medication review. admits OCD is not under good control. mentions unfounded fears that she is going to hurt someone. states she does not want to hurt anyone but for example fears she will not make happy or she will parent wrong and her son will grow up a bad person. states these thoughts have caused a severe depression. states she does not want to hurt herself but feels at times she feels everyone else would be better off if she was . no suicidal plans and states she would never really hurt herself.does not have insurance so cost is an issue when deciding on meds. will see psych if cannot get meds stable Functional Status Date Functional Assessmen t No Information Instructions Date Instruction Additional Infor hussein Restart the fluoxeti ne which worked well for you in the past. Headache and nausea are potential side effects when you first start taking it. It can take 1-2 weeks to start to notice any benefit and up to 4-6 weeks to feel the full benefit. Follow-up in 6 weeks to see how you are doing or sooner if needed. Related to Persistent anxiety depression Dietary management e ducation, guidance, and counseling Related to Body mass index (BMI) 26.0-26.9, adult You are doing well o n the fluoxetine. If you would like to try to wean off, take 1/2 tablet for 1 week, then 1/2 tablet for 1 week then stop. You can restart the medication if your symptoms are not well controlled. Follow-up every 6 months and as needed. Related to Obsessive-compulsive disorders You are doing well o n the fluoxetine, continue to take it daily. We can increase the dose if needed, contact me if you notice your down symptoms returning again. You are going to journal all the good and positive things to focus on to help manage your fears. Follow-up in 6 months or sooner if needed. Related to Obsessive-compulsive disorders Dietary management e ducation, guidance, and counseling Related to BMI 25.0 to 25.9 Change the paroxitin e to fluoxetine, take 1 daily. We will adjust the dose every 2-3 weeks if needed. Continue to see your therapist.Consider seeing a psychitrist for medication management if you are not controlled.Discussed calling 911 or going to the ER if you have any thoughts of wanting to hurt yourself or anyone else. Suicide hotline information provided. [place] Suicide Hotline 169-036-1894 (toll free ) http://www.azspc.org/ Related to Obsessive-compulsive disorders Prescribe medications Related to Congestion Nasal/Sinuses Review medications Related to Co ngestion Nasal/Sinuses Review medication side effects R elated to Congestion Nasal/Sinuses Prescribe medications Related to UTI Review medications Related to UT I Review medication side effects R elated to UTI Order labs/studies Related to UT I Call if symptoms persist Related to UTI Assessments Type Assessment Date No Information Patient Care Teams Name Effective Dates (start - stop) Status Members No Information
--- OUTSIDE RECORDS SUMMARY | 2024-10-13 04:30 | XMS_ITS ---
Author Organization [facility] Address [address] [place] [address] Care Team Providers Care Pet Store Merchandiser Name Role Phone Rita Liang Primary Care Provider Reyna Al [phone] REASON FOR VISIT 2 week f/u Encounters Encounter [facility] Date [facility] [address] [place] [address] 10/13/2024 Reyna Al Plan Of Treatment Next Appt Details Provider Name:Lara Manuel, 03/19/2025 09:00:00 AM, [address] [place], [address], Progress Notes * REENAABBEADARSHOB: 8 (34 yo F)Acc No.[id number]:10/13/2024 F/U - Patient Patient: ABBE JEAN-BAPTISTEHANIE Provider: Brad Al LPC :1990 A ge:34 Y S ex:Female Date:10/13/2024 Address:[address] [place] [address] Pcp:Rita Liang Subjective: * Chief Complaints: * 1 . 2 week f/u. Objective: Therapeutic Interventions: Assessment: Plan: * Images: Care Plan Details* * Electronic signature of Katarina Al LPC on 12/11/2024 at 08:19 AM EDT Sign off status: Pending * Provider: Brad Al LPC Date: 0 10/13/2024 Generated for Rudy mercer/Umesh/Kwabena on: 0 12/11/2024 08:19 AM EDT
--- OUTSIDE RECORDS SUMMARY | 2024-10-27 04:30 | XMS_ITS ---
Author Organization [facility] es Address [address] [place] [address] Care Team Providers Care Landscape Crew Member Name Role Phone Rita Liang Primary Care Provider Reyna Al [phone] REASON FOR VISIT 2 week f/u Encounters Encounter Location Date Provider Diagnosis [facility] [address] [place] [address] 10/27/2024 Reyna Al Plan Of Treatment Next Appt Details Provider Name:Lara Manuel, 03/19/2025 09:00:00 AM, [address] [place], [address], Progress Notes * REENA ABBEADARSHOB: 8 (34 yo F)Acc No.[id number]:10/27/2024 F/U - Patient Patient: ABBE JEAN-BAPTISTEHANIE Provider: Brad Al LPC :1990 A ge:34 Y S ex:Female Date:10/27/2024 Address:[address] [place] [id number] Pcp:Rita Liang Subjective: * Chief Complaints: * 1 . 2 week f/u. Objective: Therapeutic Interventions: Assessment: Plan: * Images: Care Plan Details* * Electronic signature of Katarina Al LPC on 12/11/2024 at 08:19 AM EDT Sign off status: Pending * Provider: Brad Al LPC Date: 0 10/27/2024 Generated for Rudy mercer/Umesh/Kwabena on: 0 12/11/2024 08:19 AM EDT
--- OUTSIDE RECORDS SUMMARY | 2024-11-05 04:30 | XMS_ITS ---
Author Organization [facility] in [place] Address [address] [place] [address] Care Team Providers Care Assistant Clinical Nurse Manager Name Role Phone Debbie Peterson Primary Care Provider Allergies Allergen (clinical drug ingredient) Drug/Non Drug Allergy documented on EMR Reaction Allergy Type Onset Date Status acetaminophen / oxycodone Percocet hives Drug Allergy Active REASON FOR VISIT weight loss/ spotting in between periods, also noticing hair on her chin and chest Medications Medication SIG (Take, Route, Frequency, Duration) Notes Start Date End Date Status Adipex-P 37.5 MG 1 tablet before torsten kfast Orally Once a day for 30 days 11/05/2024 Active Citalopram Hydrobromide 20 MG TAKE 1 TABLET BY MOUTH EVERY DAY FOR 30 DAYS for 90 Active Social History Tobacco Use: Social History Observation Description Date Details (start date - stop date) Never Smoker NA - NA Tobacco Control (Standard) Question Answer Notes Tobacco use: Nonsmoker AUDIT-C (Standard) Question Answer Notes Did you have a drink containing alcohol in the p ast year? No Points 0 Interpretation Negative Problems Problem Type SNOMED Code ICD Code Onset Dates Problem Status W/U Status Risk Notes Problem Menstrual spotting (N92.0) Active confirmed Problem Obese class I (finding) (67897887576 4107) Class 1 obesity (E66.9) Active confirmed Vital Signs Blood pressure systolic 118 mm Hg 11/06/19 25 Blood pressure diastolic 64 mm Hg 025 Height 63 in 11/05/2024 Weight 174 lbs 11/05/2024 BMI 30.82 kg/m2 11/05/2024 Encounters Encounter Location Date Provider Diagnosis [facility] [address] [place] [address] 11/05/2024 Debbie Peterson Class 1 obesity E66. 9 ; Menstrual spotting N92.0 and Wellness examination Z00.00 Assessments Encounter Date Diagnosis (ICD Code) Assessment Notes Treatment Notes Treatment Clinical Notes Section Notes 11/05/2024 Class 1 obesity (ICD-10 - E66.9) work on diet handouts given CSA signed OARRS reviewed fu 1m 11/05/2024 Menstrual spotting (ICD-10 - N92.0) is due for OBGYN visit, going to call and fu Erin 11/05/2024 Wellness examination (ICD-10 - Z00.00) Plan Of Treatment Medication Medication Name Sig Start Date Stop Date Notes Adipex-P 37.5 MG 1 tablet before torsten kfast Orally Once a day for 30 days 11/05/2024 Treatment Notes Assessment Notes Class 1 obesity work on diet handouts given CSA signed OARRS reviewed fu 1m Menstrual spotting is due for OBGYN vis it, going to call and fu Erin Pending Test Test Name Order Date HEMOGLOBIN A1C (GLYCO) 11/05/2024 IRON, TOTAL 11/05/2024 LIPID PANEL (CHOL/TRIG/HDL/LDL) 11/06/19 25 VITAMIN D, 25 LEVEL (TOTAL) 11/05/2024 Insulin Level 11/05/2024 THYROID PANEL (T4/TSH/FREE T3) 5 CMP (COMP MET RUIZ) w/eGFR CKD-EPI 2024 CBC WITH DIFF 11/05/2024 Next Appt Details Follow Up: 4 Weeks,prn, Reas on: Provider Name:Debbie araya, 01/07/2025 08:30:00 AM, [address] [place], [address], Progress Notes * Chelsey HUYNH CDOB: [birth year] (34 yo F)Acc No.[id number]:11/05/2024 Progress Note Patient: Beka JEAN-BAPTISTEhanhedy Lopez Provider: Min Peterson ([facility]), BUTTON MAKER :1990 A ge:34 Y S ex:Female Date:11/05/2024 Address:[facility] [phone] Check In:08:31 AM ESTCheck O ut:09:01 AM EST Subjective: * Chief Complaints: * 1 . Weight loss/ spotting in between periods, also noticing hair on her chin and chest. * HPI: D epression Screening: PHQ-9 L ittle interest or pleasure in doing things?Not at all F eeling down, depressed, or hopeless M ore than half the days T rouble falling or staying asleep, or sleeping too much M ore than half the days F eeling tired or having little energy S everal P oor appetite or overeating M ore than half the days F eeling bad about yourself or that you are a failure, or have let yourself or your family down N early every day T rouble concentrating on things, such as reading the newspaper or watching television S ever M oving or speaking so slowly that other people could have noticed; or the opposite, being so fidgety or restless that you have been moving around a lot more than usual S ever T houghts that you would be better off or of hurting yourself in some way S ever (Consider Suicide Assessment Risk) T otal Score 1 3 I nterpretation M oderate Depression G eneral: started working out , 15 min eliptical, 10 min weights EOD gained weight working on diet, cut out desserts, no snacks after dinner trying to eat less more spotting between periods no BCP periods little irregular labs will follow up with Erin 2 cats in house and allergies worse. * ROS: G eneral/Constitutional: Patient complaining of u nable to lose wt excess hair growth, menstrual spotting. F ever?denies. H eadache d enies. W eight loss d enies. O phthalmologic: Discharge d enies. E ye Pain d enies. I tching and redness d enies. E NT: Nasal discharge d enies. N vandana congestion d enies.?Sore throat d enies. C ardiovascular: Chest tightness/ heavy pressure d enies. R apid heart rate d enies. S welling of extremities d enies. C hest pain d enies. ? R espiratory: Productive cough d enies. C hest pain d enies. C ough d enies. S hortness of breath d enies. W heezing d enies. ? G astrointestinal: Abdominal pain d enies. C onstipation d enies. D ecreased appetite d enies. D iarrhea d enies. N ausea d enies. V omiting?denies. G enitourinary: Urinary incontinence d enies. P ainful urination d enies. M usculoskeletal: Back pain d enies. N andres pain d enies. M uscle aches d enies. S kin: Rash d enies. S kin lesion(s) d enies. ? * Active Problem List F42.9 OCD (obsessive compu lsive disorder) Modified On:01/14/2024W/U Status:confirmed E66.9 Class 1 obesity Modified On:11/05/2024W/U Status:confirmed N92.0 Menstrual spotting Modified On:11/05/2024/U Status:confirmed * Medical History: O cd, Adhd. * Surgical History: c section x2 2010 and 2020 . * Family History: F ather: alive, diagnosed with Diabetes mellitus without mention of complication, type II or unspecified type, not stated as uncontrolled, Unspecified essential hypertension. M other: alive. Brother(s): alive. S ister(s): alive. 1 brother(s) , 1 sister(s) . 2 son(s) - healthy. . * Social History: T obacco Use: T obacco Control (Standard) T obacco use: N onsmoker D rug/Alcohol: A THIAGO-C (Standard) D id you have a drink containing alcohol in the past year? N o P oints 0 I nterpretation N egative * Medications: T aking Citalopram Hydrobromide 20 MG Tablet TAKE 1 TABLET BY MOUTH EVERY DAY FOR 30 DAYS , Medication List reviewed and reconciled with the patient * Allergies: P ercocet: hives. Objective: * Vitals: W t:174lbs, Ht: 63 in, BP:118/64mm Hg, BMI:30.82Index, Ht-cm: 160.02 cm, Wt-k.93 kg. * Examination: G eneral Examinations: GENERAL APPEARANCE: a lert and oriented, in no acute distress, obese. EYES: c onjunctiva normal, sclera non-icteric. NOSE: n ormal external appearance. LUNGS: c lear to auscultation bilaterally. CARDIO: r egular rate and rhythm, S1, S2 normal. ABDOMEN: s oft, nontender. MUSCULOSKELETAL: G ait and station normal. SKIN: w arm and dry. Assessment: * Assessment: 1. C lass 1 obesity - E66.9 (Primary) 2 . M enstrual spotting - N92.0 ? 3 . [facility] - [facility].00 Plan: * Treatment: 2. M enstrual spotting Notes: is due for OBGYN visit, going to call and fu Erin 3. [facility] examination L AB: HEMOGLOBIN A1C (GLYCO) L AB: IRON, TOTAL L AB: LIPID PANEL (CHOL/TRIG/HDL/LDL) L AB: VITAMIN D, 25 LEVEL (TOTAL) L AB: Insulin Level L AB: THYROID PANEL (T4/TSH/FREE T3) L AB: CMP (COMP MET RUIZ) w/eGFR CKD-EPI L AB: CBC WITH DIFF * Preventive Medicine: Screenings/Counseling: B NH ACTION PLAN Above Normal BMI Follow-up D ietary management education, guidance, and counseling * Follow Up: 4 Weeks,prn * * Electronically signed by Mercedez Peterson NP, PERINATAL BREASTFEEDING ASSISTANT.BUTTON [id number] on 11/06/2024 at 10:42 AM EDT Sign off status: Completed Visit Status: C HK (Check Out) true * Provider: Min Peterson ([facility]), BUTTON MAKER Date: 0 11/05/2024 Generated for Rudy mercer/Umesh/eTranabitting on: 0 12/11/2024 08:15 AM EDT History and Physical Notes * HPI (History of Present Illness) Category Sub-Category Detail Notes Category Not es Depression Screening PHQ-9 Little inte rest or pleasure in doing things: Not at all Feeling down, depressed, or hopeless: Mo re than half the days Trouble falling or staying a sleep, or sleeping too much: More than half the days Feeling tired or having little energy: S everal days Poor appetite or overeating: More than h [facility] the days Feeling bad about yourself o r that you are a failure, or have let yourself or your family down: Nearly every day Trouble concentrating on thi ngs, such as reading the newspaper or watching television: Several days Moving or speaking so slowly that other people could have noticed; or the opposite, being so fidgety or restless that you have been moving around a lot more than usual: Several days Thoughts that you would be b kalpesh off or of hurting yourself in some way: Several days (Consider Suicide Assessment Risk) Total Score: 13 Interpretation: Moderate Depression General started working out , 15 min eliptical, 10 min weights EOD gained weight working on diet, cut out desserts, no snacks after dinner trying to eat less more spotting between periods no BCP periods little irregular labs will follow up with Erin 2 cats in house and allergies worse Examination Category Sub-Category Detail Notes Category Not es General Examinations GENERAL APPEARANCE: alert a nd oriented, in no acute distress, obese EYES: conjunctiva normal, sclera non-icteric EARS: NOSE: normal external appe arance THROAT: CARDIO: regular rate and rhy thm, S1, S2 normal LUNGS: clear to auscultatio n bilaterally ABDOMEN: soft, nontender SKIN: warm and dry BACK: MUSCULOSKELETAL: Gait and station nor mal LYMPH NODES:
--- OUTSIDE RECORDS SUMMARY | 2024-11-09 10:25 | XMS_ITS ---
Author Organization [facility] in [place] Address [address] [place] [address] Care Team Providers Care Talent Recruiter Name Role Phone Debbie Peterson Primary Care Provider REASON FOR VISIT Lab Results Medications Medication SIG (Take, Route, Frequency, Duration) Notes Start Date End Date Status Vitamin D3 50 MCG (1999 UT) 1 capsule Orally Once a day for 30 day(s) 11/09/2024 Active Encounters Encounter Location Date Provider Diagnosis [facility] [address] [place] [address] 11/09/2024 Debbie Peterson Plan Of Treatment Medication Medication Name Sig Start Date Stop Date Notes Vitamin D3 50 MCG (2000 UT) 1 capsule Or ally Once a day for 30 day(s) 11/09/2024 Next Appt Details Provider Name:Debbie araya, 01/07/2025 08:30:00 AM, [address] [place], [address], Progress Notes * Chelsey HUYNH CDOB: [birth year] (34 yo F)Acc No.[id number]:11/09/2024 Patient: Dian CHOEChelsey Dozier :1990 A ge:34 Y S ex:Female Address:[address] [place] [address], [address] * Refills Start Vitamin D3 Capsule, 50 MCG (2000 UT), Orally, 30, 1 capsule, Once a day, 30 day(s), Refills=11 Subjective: * Chief Complaints: * L ab Results * Medical History: * Surgical History: * Hospitalization/Major Diagno stic Procedure: * Medications: Objective: * Vitals: * Physical Examination: Assessment: Plan: * Treatment: * Procedure Codes: * true * Date: Generated for Rudy mercer/Umesh/Kwabena on: 0 12/11/2024 08:17 AM EDT
--- OUTSIDE RECORDS SUMMARY | 2024-11-10 05:30 | XMS_ITS ---
Author Organization [facility] es Address [address] [place] [address] Care Team Providers Care Retail Manager In Training Name Role Phone Rita Liang Primary Care Provider [phone] Reyna Al [phone] REASON FOR VISIT 2 week f/u Encounters Encounter Location Date Provider Diagnosis [facility] [place] [address] [place] [address] 11/10/2024 Reyna Al Plan Of Treatment Next Appt Details Provider Name:Lara Manuel, 03/19/2025 09:00:00 AM, [address] [place], [address], Progress Notes * REENA ABBEADARSHOB: 8 (34 yo F)Acc No.[id number]:11/10/2024 F/U - Patient Patient: ABBE JEAN-BAPTISTEHANIE Provider: Brad Al LPC :1990 A ge:34 Y S ex:Female Date:11/10/2024 Address:[address] [place] [address] Pcp:Rita Liang Subjective: * Chief Complaints: * 1 . 2 week f/u. Objective: Therapeutic Interventions: Assessment: Plan: * Images: Care Plan Details* * Electronic signature of Katarina Al LPC on 12/11/2024 at 08:19 AM EDT Sign off status: Pending * Provider: Brad Al LPC Date: 0 11/10/2024 Generated for Rudy mercer/Umesh/Kwabena on: 0 12/11/2024 08:19 AM EDT
--- OUTSIDE RECORDS SUMMARY | 2024-11-30 10:29 | XMS_ITS ---
Author Name Auto Generated Organization [facility] Care Team Providers Care Roll Threader Operator Name Role Phone ZANDRA, ERNESTINA Attending Unavailable PROBLEMS No Problem Records Found PROCEDURES No Procedure Records Found RESULTS US PELVIC COMPLETE W/ TV Observed: 11/30 10:29 AM Status: F Source: [facility] EPIC Order Comment: US PELVIS-TRA NSVAG IF INDICATED No LMP recorded. EXAM: US PELVIC COMPLETE W/ TV HISTORY: PCOS, abnormal hair growth. COMPARISON: None available. TECHNIQUE: Two-dimensional transabdominal grayscale ultrasound imaging of the pelvis was performed. Color flow Doppler imaging of the ovaries was also performed. Transvaginal was performed. FINDINGS: UTERUS 10.3 x 5.6 x 6.2 cm The uterus is anteverted in position and demonstrates a mildly heterogeneous echotexture. Multiple nabothian cysts are visualized within the cervix. ENDOMETRIUM 0.7 cm The endometrium demonstrates a normal, homogeneous echotexture. RIGHT OVARY 3.1 x 1.9 x 2.8 cm The right ovary demonstrates a normal echotexture. There is normal color Doppler flow. Normal ovarian volume measuring 8 mL. LEFT OVARY 2.8 x 2.1 x 2.6 cm The left ovary demonstrates a normal echotexture. There is normal color Doppler flow. Normal ovarian volume measuring 8 mL. No fluid is present within the cul-de-sac. IMPRESSION: 1. Mildly heterogeneous uterus. 2. Normal color Doppler flow within the bilateral ovaries. Interpreted by: Electronically signed by RAF ARREOLA II, MD, PHD at 01-Dec-2024 08:11:16 AM [facility] ALLERGIES No Allergies Records Found ENCOUNTERS ADMIT/DISCHARGE ACCOUNT NUMBER ADMITTING ENCOUNTER CLASS LOCATION SOURCE 11/30/2024/ 5 [id number] Ambulatory Building:[facility] 11/24/2024/ 5 [id number] Ambulatory Building:[facility] PAYERS ENCOUNTER GUARANTOR PAYER SUBSCRIBER SOURCE 11/30/2024 ROMANA GALEANOOB: [place] [address]Qey: (HP) Primary Insurance:[employer] licy Number: [id number] ctive Date:2024-07-22 ABA BHAKTA: [id number] [place] [address] [facility] 11/24/2024 ROMANA BHAKTA: [place] [address]Fhf: (HP) Primary Insurance:[facility] licy Number: [id number] ctive Date:2024-07-22 ABA BHAKTA: [id number] [place] [address] [facility]
--- OUTSIDE RECORDS SUMMARY | 2024-11-30 10:30 | XMS_ITS | Encounter Summary ---
Author Organization [facility] Address [address] [place] [address] Care Team Providers Care Blade Aligner Name Role Phone Unavailable Primary Care Provider Unavailabl e Encounter Details Date Type Department Care Team (Latest Contact Info) Description 11/30/2024 10:30 AM EDT Ancillary Procedure [facility] [address] [place] [address] PCOS (polycystic ovarian syndrome) Social History Tobacco Use Types Packs/Day Years Used Date Smoking Tobacco: Never Smokeless Tobacco: Never Alcohol Use Standard Drinks/Week Comments Never 0 (1 standard drink = 0.6 oz pur e alcohol) Comments No Sex and Gender Information Value Date Recorded Sex Assigned at Not on file Legal Sex Female 10:09 PM EDT Gender Identity Not on file Sexual Orientation Not on file documented as of this encounter Plan of Treatment Upcoming Encounters Date Type Department Care Team (Late st Contact Info) Description 12/23/2024 8:10 AM EDT Office Visit [facility] OB [address] [place] [address] Yonathan Khan, DO [address] [place] [address] 03/29/2025 9:30 AM EDT Office Visit [facility] OB [address] [place] [address] Yonathan Khan, DO [address] [place] [address] documented as of this encounter Procedures Procedure Name Priority Date/Time Associated Diagnosis Comments US PELVIC COMPLETE W/ TV Routine 11/30/2024 10:49 AM EDT PCOS (polycystic ovarian syndrome) documented in this encounter Results * US Pelvis w/ TV (11/30/2024 10:49 AM EDT) Anatomical Region Laterality Modality Pelvis Ultrasound 12/01/2024 8:13 AM EDT Narrative 12/01/2024 8:13 AM EDT EXAM: US PELVIC COMPLETE W/ TV HISTORY: [...] II, MD, PHD at 01-Dec-2024 08:11:16 AM [facility] Procedure Note Raf Arreola MD - 12/01/2024 EXAM: US PELVIC COMPLETE W/ TV HISTORY: PCOS, abnormal hair growth. COMPARISON: None available. TECHNIQUE: Two-dimensional transabdominal grayscale ultrasound imaging ofthe pelvis was performed. Color flow Doppler imaging of the ovaries wasalso performed. Transvaginal was performed. FINDINGS: UTERUS 10.3 x 5.6 x 6.2 cm The uterus is anteverted in position and demonstrates a mildlyheterogeneous echotexture. Multiple nabothian cysts are visualized withinthe cervix. ENDOMETRIUM 0.7 cm The endometrium demonstrates a normal, homogeneous echotexture. RIGHT OVARY 3.1 x 1.9 x 2.8 cm The right ovary demonstrates a normal echotexture. There is normal colorDoppler flow. Normal ovarian volume measuring 8 mL. LEFT OVARY 2.8 x 2.1 x 2.6 cm The left ovary demonstrates a normal echotexture. There is normal colorDoppler flow. Normal ovarian volume measuring 8 mL. No fluid is present within the cul-de-sac. IMPRESSION: 1. Mildly heterogeneous uterus. 2. Normal color Doppler flow within the bilateral ovaries. Interpreted by: Electronically signed by RAF ARREOLA II, MD, PHD 08:11:16 AM [facility] us Yonathan MAE US PROCEDURES Final Result documented in this encounter Visit Diagnoses Diagnosis PCOS (polycystic ovarian syndrome) Polycystic ovaries documented in this encounter
--- OUTSIDE RECORDS SUMMARY | 2024-12-03 04:30 | XMS_ITS ---
Author Organization [facility] [place] Address [address] [place] [address] Care Team Providers Care Core Drilling Supervisor Name Role Phone Debbie Peterson Primary Care Provider Allergies Allergen (clinical drug ingredient) Drug/Non Drug Allergy documented on EMR Reaction Allergy Type Onset Date Status acetaminophen / oxycodone Percocet hives Drug Allergy Active REASON FOR VISIT 1 month Adipex follow up, Started patient is co SOB went to [facility] ER Medications Medication SIG (Take, Route, Frequency, Duration) Notes Start Date End Date Status Vitamin D3 50 MCG (1999) 1 capsule Or ally Once a day for 30 day(s) 11/09/2024 Active metFORMIN HCl 500 MG 1 tablet with a romeo l Orally Once a day Active Citalopram Hydrobromide 40 MG TAKE 1 TABLET BY MOUTH EVERY DAY FOR 30 DAYS for 90 days Active Adipex-P 37.5 MG 1 tablet before torsten kfast Orally Once a day for 30 days 12/03/2024 Active Social History Tobacco Use: Social History Observation Description Date Details (start date - stop date) Never Smoker NA - NA Tobacco Control (Standard) Question Answer Notes Tobacco use: Nonsmoker AUDIT-C (Standard) Question Answer Notes Did you have a drink containing alcohol in the p ast year? No Points 0 Interpretation Negative Vital Signs Blood pressure systolic 110 mm Hg 12/04/19 25 Blood pressure diastolic 68 mm Hg 025 Height 63 in 12/03/2024 Weight 174.2 lbs 12/03/2024 BMI 30.85 kg/m2 12/03/2024 Encounters Encounter Location Date Provider Diagnosis [facility] [address] [place] [address] 12/03/2024 Debbie Peterson Class 1 obesity E66. 9 and OCD (obsessive compulsive disorder) F42.9 Assessments Encounter Date Diagnosis (ICD Code) Assessment Notes Treatment Notes Treatment Clinical Notes Section Notes 12/03/2024 Class 1 obesity (ICD-10 - E66.9) work on diet hold adipex for one week and see if mood, SOB improves if so stop adipex if doesnt think SE and wants continue, fu me 5 weeks 12/03/2024 OCD (obsessive compulsive disorder) (ICD-10 - F42.9) increase dose celexa fu Plan Of Treatment Medication Medication Name Sig Start Date Stop Date Notes Citalopram Hydrobromide 40 MG TAKE 1 TAB LET BY MOUTH EVERY DAY FOR 30 DAYS for 90 days Adipex-P 37.5 MG 1 tablet before torsten kfast Orally Once a day for 30 days 12/03/2024 Treatment Notes Assessment Notes Class 1 obesity work on diet hold adipex for one week and see if mood, SOB improves if so stop adipex if doesnt think SE and wants continue, fu me 5 weeks OCD (obsessive compulsive disorder) increase dose celexa fu Next Appt Details Follow Up: 5 weeks,prn, Reas on: Provider Name:Debbie araya, 01/07/2025 08:30:00 AM, [address] [place], [address], Progress Notes * Chelsey HUYNH CDOB: [birth year] (34 yo F)Acc No.[id number]:12/03/2024 Progress Note Patient: Beka JEAN-BAPTISTEcarmelo Lopez Provider: Min Peterson ([facility]), GAS METER REPAIR SUPERVISOR :1990 A ge:34 Y S ex:Female Date:12/03/2024 Address:[address] [place] [id number] Check In:08:30 AM ESTCheck O ut:08:52 AM EST Subjective: * Chief Complaints: * 1 . 1 month Adipex follow up. 2. Started patient is co SOB went to [facility] ER. * HPI: G eneral: less appetite with adipex eating smaller portions wants to continue ER last week for SOB negative work up has happened before doesnt feel anxious OCD has been worse. * ROS: G eneral/Constitutional: Fever d enies. H eadache d enies. W eight loss?denies. O phthalmologic: Discharge d enies. E ye [...] F42.9 OCD (obsessive compu lsive disorder) Modified On:01/14/2024/U Status:confirmed E66.9 Class 1 obesity Modified On:11/05/2024/U Status:confirmed N92.0 Menstrual spotting Modified On:11/05/2024/U Status:confirmed E55.9 Vitamin D deficiency Modified On:11/09/2024/U Status:confirmed R73.9 Hyperglycemia Modified On:11/26/2024 Status:confirmed * Medical History: O cd, Adhd. [...] nterpretation N egative * Medications: T aking Adipex-P(Phentermine HCl) 37.5 MG Tablet 1 tablet before breakfast Orally Once a day , Taking Citalopram Hydrobromide 20 MG Tablet TAKE 1 TABLET BY MOUTH EVERY DAY FOR 30 DAYS , Taking metFORMIN HCl 500 MG Tablet 1 tablet with a meal Orally Once a day , Taking Vitamin D3 50 MCG (1999 [place]) Capsule 1 capsule Orally Once a day , Medication List reviewed and reconciled with the patient * Allergies: P ercocet: hives. Objective: * Vitals: W t:174.2lbs, Ht: 63 in, BP:110/68mm Hg, BMI:30.85Index, Ht-cm: 160.02 cm, Wt-k.02 kg. * Examination: G eneral Examinations: GENERAL APPEARANCE: a lert and oriented, i n no acute distress. EYES: c onjunctiva normal, sclera non-icteric. NOSE: n ormal external appearance. LUNGS: c lear to auscultation bilaterally. CARDIO: r egular rate and rhythm, S1, S2 normal. MUSCULOSKELETAL: G ait and station normal. SKIN: w arm and dry. Assessment: * Assessment: 1. C lass 1 obesity - E66.9 (Primary) 2 . O CD (obsessive compulsive disorder) - F42.9 Plan: * Treatment: 2. O CD (obsessive compulsive disorder) Refill Citalopram Hydrobromide Tablet, 40 MG, TAKE 1 TABLET BY MOUTH EVERY DAY FOR 30 DAYS, 90 days, 90 Tablet, Refills 3. Notes: increase dose celexa fu * Preventive Medicine: Screenings/Counseling: B ID ACTION PLAN Above Normal BMI Follow-up D ietary management education, guidance, and counseling * Follow Up: 5 weeks,prn * * Electronically signed by Mercedez Peterson , JUANA, ABALONE SHELLER.GAS METER REPAIR SUPERVISOR.[id number] on 12/04/2024 at 09:12 AM EDT Sign off status: Completed Visit Status: C HK (Check Out) true * Provider: Min Peterson ([facility]), GAS METER REPAIR SUPERVISOR Date: 0 12/03/2024 Generated for Printi ng/Faxing/eTransmitting on: 12/11/2024 08:20 AM EDT History and Physical Notes * HPI (History of Present Illness) Category Sub-Category Detail Notes Category Not es General less appetite with adipex eating smaller portions wants to continue ER last week for SOB negative work up has happened before doesnt feel anxious OCD has been worse Examination Category Sub-Category Detail Notes Category Not es General Examinations GENERAL APPEARANCE: alert a nd oriented, in no acute distress EYES: conjunctiva normal, sclera non-icteric EARS: NOSE: normal external appe arance THROAT: CARDIO: regular rate and rhy thm, S1, S2 normal LUNGS: clear to auscultatio n bilaterally ABDOMEN: SKIN: warm and dry BACK: MUSCULOSKELETAL: Gait and station nor mal LYMPH NODES:
--- OUTSIDE RECORDS SUMMARY | 2024-12-11 08:16 | XMS_ITS | Patient Health Record ---
Author Organization The [facility] in [place] Address [address] [place] [address] Care Team Providers Care Roofing Foreman Name Role Phone Debbie Peterson Primary Care Provider DEBBIE PETERSON Unavailable [phone] Allergies Allergen (clinical drug ingredient) Drug/Non Drug Allergy documented on EMR Reaction Allergy Type Onset Date Status acetaminophen / oxycodone Percocet hives Drug Allergy Active Results Component Value Reference Range Notes CBC AUTO DIFF Reviewed date:11/09/2024 02:29:09 PM Interpretation: Performing Lab: Notes/Report: [facility] , White Blood Count 6.0 4.0-11.0 10 3/uL Red Blood Count 4.67 4.20-5.40 10 6/uL Hemoglobin 12.4 12.0-16.0 g/dL Hematocrit 38.7 36.0-48.0 % Mean Corpuscular Volume 82.9 81.0-99.0 fL Mean Corpuscular Hemoglobin 26.6 26.7-34.0 pg Mean Corpuscular HGB Conc 32.0 29.9-35.2 g/dL Red Cell Distribution Width 12.7 11.0-15.0 % Platelet Count 279 150-450 10 3/uL Mean Platelet Volume 10.1 9.5-13.5 fL Neutrophils Percent Auto 57.2 43.0-75.0 % Lymphocytes Percent Auto 33.6 20.5-60.0 % Monocytes Percent Auto 6.4 1.7-12.0 % Eosinophils Percent Auto 2.2 0.9-7.0 % Basophils Percent Auto 0.3 0.2-2.0 % Immature Granulocytes Pct Auto 0.3 0.0-0.5 % Neutrophils Absolute Auto 3.4 1.4-6.5 10 3/uL Lymphocytes Absolute Auto 2.0 1.2-3.8 10 3/uL Monocytes Absolute Auto 0.4 0.3-0.8 10 3/uL Eosinophils Absolute Auto 0.1 0.0-0.7 10 3/uL Basophils Absolute Auto 0.0 0.0-0.1 10 3/uL Immature Granulocytes Abs Auto 0.02 0.00-0.03 10 3/uL Performing Lab: see note ML - [facility] LB CBC AUTO DIFF Reviewed date:11/26/2024 01:57:47 PM Interpretation: Performing Lab: Notes/Report: [facility] , White Blood Count 4.8 4.0-11.0 10 3/uL Red Blood Count 5.01 4.20-5.40 10 6/uL Hemoglobin 13.4 12.0-16.0 g/dL Hematocrit 40.5 36.0-48.0 % Mean Corpuscular Volume 80.8 81.0-99.0 fL Mean Corpuscular Hemoglobin 26.7 26.7-34.0 pg Mean Corpuscular HGB Conc 33.1 29.9-35.2 g/dL Red Cell Distribution Width 13.0 11.0-15.0 % Platelet Count 291 150-450 10 3/uL Mean Platelet Volume 10.0 9.5-13.5 fL Neutrophils Percent Auto 49.8 43.0-75.0 % Lymphocytes Percent Auto 38.9 20.5-60.0 % Monocytes Percent Auto 9.2 1.7-12.0 % Eosinophils Percent Auto 1.7 0.9-7.0 % Basophils Percent Auto 0.2 0.2-2.0 % Immature Granulocytes Pct Auto 0.2 0.0-0.5 % Neutrophils Absolute Auto 2.4 1.4-6.5 10 3/uL Lymphocytes Absolute Auto 1.9 1.2-3.8 10 3/uL Monocytes Absolute Auto 0.4 0.3-0.8 10 3/uL Eosinophils Absolute Auto 0.1 0.0-0.7 10 3/uL Basophils Absolute Auto 0.0 0.0-0.1 10 3/uL Immature Granulocytes Abs Auto 0.01 0.00-0.03 10 3/uL Performing Lab: see note - [facility] GLYCOHEMOGLOBIN A1C Reviewed date:11/26/2024 01:57:47 PM Interpretation: Performing Lab: Notes/Report: [facility] , Glycohemoglobin A1C 5.8 4.5-6.2 % ADA THERAPEUTIC TARGET < 7.0 > 7.0 ACTION SUGGESTED ADA RECOMMENDED LIMIT 4.0 - 6.0 Estimated Average Glucose 120 Performing Lab: see note [facility] Luteinizing Hormone(LH) Reviewed date:11/26/2024 01:57:47 PM Interpretation: Performing Lab: Notes/Report: [facility] , Luteinizing Hormone(LH) 9.0 . mIU/mL Ovulation phase 14.0 - 95.6 Luteal phase 1.0 - 11.4 Follicular phase 2.4 - 12.6 Adult Female Range Postmenopausal 7.7 - 58.5 Performing Lab: see note [facility] LB FSH Reviewed date:11/26/2024 01:57:47 PM Interpretation: Performing Lab: Notes/Report: [facility] , FSH 7.4 . mIU/mL Adult Female Range Postmenopausal 25.8 - 134.8 Follicular phase 3.5 - 12.5 Luteal phase 1.7 - 7.7 Ovulation phase 4.7 - 21.5 Performing Lab: see note - [facility] LB Estradiol Reviewed date:11/26/2024 01:57:47 PM Interpretation: Performing Lab: Notes/Report: [facility] , Estradiol 34.6 . pg/mL 1st trimester 215.0 - >4300.0 Luteal phase 43.8 - 211.0 Postmenopausal <6.0 - 54.7 Follicular phase 12.5 - 166.0 Ovulation phase 85.8 - 498.0 Adult Female Range Amara ECLIA methodology Performing Lab: see note [facility] DHEA-Sulfate Reviewed date:11/26/2024 01:57:47 PM Interpretation: Performing Lab: Notes/Report: [facility] , DHEA-Sulfate 567.0 57.3-279.2 ug/dL Performing Lab: see note [facility] U[place] Culture - [facility] [place] Reviewed date:11/30/2024 11:44:15 AM Interpretation: Performing Lab: Notes/Report: [facility] Urine Culture - [facility] [place] See Below For Report >100,000 colonies/ml mixed Urine Culture - [facility] Urine Culture - [facility] bacterial skin contaminants >100,000 colonies/ml mixed Urine Culture - [facility] Urine Culture - [facility] 2 Days >100,000 colonies/ml mixed Urine Culture - [facility] Urine Culture - [facility] >100,000 colonies/ml mixed Urine Culture - [facility] Urine Culture - [facility] Testing performed a [facility] >100,000 colonies/ml mixed Urine Culture - [facility] Urine Culture - [facility] [address] [place] [address] >100,000 colonies/ml mixed Urine Culture - [facility] Performing Lab: see note ML - [facility] LB Progesterone Reviewed date:11/26/2024 01:57:47 PM Interpretation: Performing Lab: Notes/Report: [facility] , Progesterone 0.3 . ng/mL Follicular phase 0.1 - 0.9 Luteal phase 1.8 - 23.9 Third trimester 58.7 - 214.0 Postmenopausal 0.0 - 0.1 Slate Trimmer: Jovani Morales PhD, Phone: [phone] Second trimester 25.4 - 83.3 First trimester 11.0 - 44.3 Performed at: - [facility] [address] [id number] Ovulation phase 0.1 - 12.0 Performing Lab: see note - [facility] LB TSH Reviewed date:11/26/2024 01:57:47 PM Interpretation: Performing Lab: Notes/Report: [facility] , Thyroid Stimulating Hormone 1.598 0.358-3.740 uIU/mL Performing Lab: see note - [facility] LB PREG QUANT HCG Reviewed date:11/26/2024 01:57:47 PM Interpretation: Performing Lab: Notes/Report: [facility] , HCG Quantitative <1 10,000-100,000 5-6 WEEKS 10,000-100,000 2-3 MONTHS 15,000-200,000 6-8 WEEKS 1,000-50,000 4-5 WEEKS 50-500 1-2 WEEKS 5-50 0.2-1 WEEK 500-10,000 3-4 WEEKS 100-5,000 2-3 WEEKS Performing Lab: see note - [facility] LB FREE T4 Reviewed date:11/26/2024 01:57:47 PM Interpretation: Performing Lab: Notes/Report: [facility] , Free T4 1.32 0.76-1.46 ng/dL Performing Lab: see note ML - [facility] LB VITAMIN D 25 [place] Reviewed date:11/09/2024 02:29:01 PM Interpretation: Performing Lab: Notes/Report: [facility] , Vitamin D 27.0 <20 ng/mL Vit D deficient >100 ng/mL Potential Toxicity 20-<30 ng/mL Vit D insufficient 30-100 ng/mL Vit D sufficient Performing Lab: see note ML - [facility] LB TSH Reviewed date:11/09/2024 02:29:09 PM Interpretation: Performing Lab: Notes/Report: [facility] , Thyroid Stimulating Hormone 1.973 0.358-3.740 uIU/mL Performing Lab: see note - [facility] LB T4 Reviewed date:11/09/2024 02:29:09 PM Interpretation: Performing Lab: Notes/Report: [facility] , T4 Thyroxine 8.60 4.80-13.90 ug/dL Performing Lab: see note - [facility] LB PROF 14(COMP METB) Reviewed date:11/09/2024 02:29:09 PM Interpretation: Performing Lab: Notes/Report: [facility] , Sodium 140 136-145 mmol/L Potassium 4.2 3.5-5.1 mmol/L Chloride 104 98-107 mmol/L Carbon Dioxide 28.0 21.0-32.0 mmol/L Anion Gap 12.2 Glucose 93 74-106 mg/dL Blood Urea Nitrogen 9.0 7.0-18.0 mg/dL Creatinine 0.76 0.55-1.02 mg/dL Estimated GFR ( Shona >60 >=60 mL/min/1.73m 2 Estimated GFR (Non- Diann >60 >=60 mL/min/1.73m 2 BUN Creatinine Ratio 11.8 Calcium 8.8 8.5-10.1 mg/dL Bilirubin Total 0.3 0.2-1.0 mg/dL Aspartate Amino Transferase 14 15-37 U/L Alanine Aminotransferase 13 14-59 U/L Alkaline Phosphatase 51 46-116 U/L Total Protein 7.1 6.4-8.2 g/dL Albumin Level 3.6 3.4-5.0 g/dL Globulin 3.5 Albumin Globulin Ratio 1.0 Performing Lab: see note ML - [facility] LB LIPID PROFILE Reviewed date:11/09/2024 02:29:09 PM Interpretation: Performing Lab: Notes/Report: [facility] , Triglycerides 45 <=150 mg/dL Cholesterol 172 <=200 mg/dL HDL Cholesterol 72 40-60 mg/dL > or =60 mg/dl - LOW CARDIOVASCULAR RISK <40 mg/dl - HIGH CARDIOVASCULAR RISK LDL Cholesterol Calculated 91.0 <100 mg/dl OPTIMAL 160-189 mg/dl HIGH 130-159 mg/dl BORDERLINE HIGH 100-129 mg/dl NEAR OR ABOVE OPTIMAL >190 mg/dl VERY HIGH VLDL CHOLESTEROL 9.0 Chol HDL Ratio 2.4 4.4 - 7.1 AVERAGE RISK 7.1 - 11.0 MODERATE RISK 3.3 - 4.4 LOW RISK >11.0 HIGH RISK Performing Lab: see note ML - [facility] IRON Reviewed date:11/09/2024 02:29:09 PM Interpretation: Performing Lab: Notes/Report: [facility] , Iron 50.0 50.0-170.0 ug/dL Performing Lab: see note ML - [facility] INSULIN Reviewed date:11/10/2024 09:29:09 AM Interpretation: Performing Lab: Notes/Report: [facility] , Insulin 10.2 2.6-24.9 uIU/mL Slate Trimmer: Jovani Morales PhD, Phone: [phone] Performed at: [facility] [address] [id number] Performing Lab: see note - [facility] LB GLYCOHEMOGLOBIN A1C Reviewed date:11/09/2024 02:29:09 PM Interpretation: Performing Lab: Notes/Report: [facility] , Glycohemoglobin A1C 5.5 4.5-6.2 % ADA RECOMMENDED LIMIT 4.0 - 6.0 ADA THERAPEUTIC TARGET < 7.0 > 7.0 ACTION SUGGESTED Estimated Average Glucose 111 Performing Lab: see note ML - [facility] FREE T3 Reviewed date:11/09/2024 02:29:09 PM Interpretation: Performing Lab: Notes/Report: [facility] , Free T3 2.74 2.18-3.98 pg/mL Performing Lab: see note ML - [facility] LB ECG 12 lead Reviewed date:11/30/2024 11:44:16 AM Interpretation: Performing Lab: Notes/Report: Source Facility: [place] [address] [place] [address] Electrocardiograph Report Signed Patient: CHELSEY HUYNH MR#: [id number] : 1990 Acct:[id number] Age/Sex: 34 / F ADM Date: 11/26/24 Loc: ER Attending Dr: Ordering Physician: Reyna Garcia Date of Service: 11/26/24 Procedure(s): ECG 12 lead Accession Number(s): [id number] cc: [facility] Test Date: 2024-11-26 Pat Name: CHELSEY HUYNH Department: Room: - Gender: Female Correspondence Dictator: : 1990 Requested By: 0939 Order Number: [id number] Reading MD: FLAVIO SHARIF M.D. Measurements Intervals [place] Rate: 86 P: 63 IA: 172 QRS: 98 QRSD: 88 T: 6 QT: 358 QTc: 401 Interpretive Statements 1100 Sinus rhythm Nonspecific Twave abnormality 7102 Moderate right axis deviation 9150 abnormal ECG Compared to ECG 12/25/2022 12:05:27 No significant changes Electronically Signed On 11-27-2024 18:41:44 EDT by FLAVIO SHARIF M.D. Dictated By: FLAVIO SHARIF Signed By: 11/27/24 1842 DD/ 2216 TD/TT: Mechanical Systems Design Engineer: [place] [address] Electrocardiograph Report Signed Patient: ALEX HUYNH MR#: [id number] : 1990 Acct:[id number] Age/Sex: 34 / F ADM Date: 11/26/24 Loc: ER Attending Dr: Ordering Physician: Ryena Garcia Date of Service: 11/26/24 Procedure(s): ECG 12 lead Accession Number(s): [id number] cc: [facility] Test Date: 2024-11-26 Pat Name: CHELSEY HUYNH Department: 67 Room: - Gender: Female Correspondence Dictator: : 1990 Requ ested By: 0939 Order Number: [id number] Reading MD: FLAVIO SHARIF M.D. Measurements Intervals [place] Rate: 86 P: 63 IA: 172 QRS: 98 QRSD: 88 T: 6 QT: 358 QTc: 401 Interpretive Statements 1100 Sinus rhythm Nonspecific Twave abnormality 7102 Moderate right axis deviation 9150 abnormal ECG Compared to ECG 12/25/2022 12:05:27 No significant changes Electronically Shannan d On 11-27-2024 18:41:44 EDT by FLAVIO SHARIF M.D. Dictated By: FLAVIO SHARIF Signed By: 11/27/24 184 DD/ TD/TT: Mechanical Systems Design Engineer: SARS-CoV-2 Ag* Reviewed date:11/27/2024 09:38:06 AM Interpretation: Performing Lab: Notes/Report: [facility] , SARS-CoV-2 Ag NEGATIVE NEGATIVE This test has not been FDA cleared or approved, but has been the detection of proteins from SARS-CoV-2, not for any other circumstances exist justifying the authorization of terminated or authorization is revoked sooner. CLIA that meet the requirements to perform moderate or high viruses or pathogens. The emergency use of this test is authorized by the FDA under an Emergency Use Authorization and/or diagnosis of Covid-19 under section 564(b)(1) of the Act, 21 U.S.C. 360bbb-3(b)(1), unless the declaration is authorized for the duration of the declaration that (EUA) for use by authorized laboratories certified under emergency use of in vitro diagnostic tests for detection complexity testing. This test has been authorized only for Performing Lab: see note ML - [facility] LB Troponin I High Sensitivity Reviewed date:11/27/2024 09:38:06 AM Interpretation: Performing Lab: Notes/Report: [facility] , Troponin I High Sensitivity <4.0 4.0-51.3 pg/mL PERCENTILE OF cTnI DISTRIBUTION IN A REFERENCE POPULATION, WITH OTHER DIAGNOSTIC AND CLINICAL INFORMATION. UNIVERSAL DEFINITION OF MYOCARDIAL INFARCTION. THE UPPER HAS BEEN CONFIRMED THE DECISION THRESHOLD FOR AK NOTE: HIGH-SENSITIVITY TROPONIN ASSAY IS NOT INTENDED TO BE CUT-OFF POINTS HAVE BEEN ESTABLISHED BASED ON THE FOURTH USED IN ISOLATION BUT SHOULD BE INTERPRETED IN CONJUNCTION DIAGNOSIS. 99TH PERCENTILE = 51.4 PG/ML REFERENCE LIMIT (URL) OF TROPONIN, DEFINED THE 99TH Performing Lab: see note ML - [facility] LB UA RANDOM W or MICROSCOPIC Reviewed date:11/27/2024 09:38:06 AM Interpretation: Performing Lab: Notes/Report: [facility] , Color Urine LT. YELLOW YELLOW Clarity Urine SL CLOUDY CLEAR Specific [place] Urine 1.010 1.005-1.025 pH Urine 7.0 5.0-9.0 Protein Urine NEGATIVE NEG/TRACE mg/dL Glucose Urine UA NEGATIVE NEGATIVE mg/dL Bilirubin Urine NEGATIVE NEGATIVE Ketones Urine NEGATIVE NEGATIVE mg/dL Blood Urine MODERATE NEGATIVE Nitrite Urine NEGATIVE NEGATIVE Urobilinogen Urine 0.2 0.2-1.0 EU/dL Leukocyte Esterase Urine SMALL NEGATIVE WBC Urine 5-10 NONE SEEN #/HPF RBC Urine 0-2 0-2 #/HPF Bacteria Urine MODERATE NONE SEEN #/HPF Mucus Urine NONE SEEN NONE SEEN Squamous Epithelial Cell Urine MANY NONE/RARE #/LPF Crystals Seen? None Seen None Seen #/HPF Cast Seen? NONE SEEN NONE SEEN #/LPF Urine Culture Indicated [place] [place] Performing Lab: see note ML - [facility] LB PROF 14(COMP METB) Reviewed date:11/27/2024 09:38:06 AM Interpretation: Performing Lab: Notes/Report: [facility] , Sodium 136 136-145 mmol/L Potassium 3.6 3.5-5.1 mmol/L Chloride 103 98-107 mmol/L Carbon Dioxide 25.5 21.0-32.0 mmol/L Anion Gap 11.1 Glucose 114 74-106 mg/dL Blood Urea Nitrogen 11.0 7.0-18.0 mg/dL Creatinine 1.07 0.55-1.02 mg/dL Estimated GFR ( Shona >60 >=60 mL/min/1.73m 2 Estimated GFR (Non- Diann 58 >=60 mL/min/1.73m 2 BUN Creatinine Ratio 10.3 Calcium 9.5 8.5-10.1 mg/dL Bilirubin Total 0.6 0.2-1.0 mg/dL Aspartate Amino Transferase 21 15-37 U/L Alanine Aminotransferase 17 14-59 U/L Alkaline Phosphatase 58 46-116 U/L Total Protein 7.5 6.4-8.2 g/dL Albumin Level 3.6 3.4-5.0 g/dL Globulin 3.9 Albumin Globulin Ratio 0.9 Performing Lab: see note ML - [facility] INFLUENZA A AND B AG Reviewed date:11/27/2024 09:38:06 AM Interpretation: Performing Lab: Notes/Report: [facility] , Influenza Virus A Antigen Negative cannot be ruled out. Flu A antigen in the sample may be below the detection limit of the test. Negative for Flu A protein antigen. Infection due to Flu A Influenza Virus B Antigen Negative below the detection limit of the test. cannot be ruled out. Flu B antigen in the sample may be Negative for Flu B protein antigen. Infection due to Flu B Performing Lab: see note ML - [facility] LB D-DIMER Reviewed date:11/27/2024 09:38:06 AM Interpretation: Performing Lab: Notes/Report: [facility] , D Dimer 0.39 <=0.59 mg/L FEU event cannot be diagnosed with certainty on the basis of the or anticoagulant therapy, stress, and generalized disease, cancer, liver disease, infection, inflammation, of disorders including advanced age, , coronary hospitalization. hematoma, DIC, trauma, post-surgery, diabetes, thrombolytic Increases in D-Dimer concentration observed with thromboembolic events can be variable due to localization, reference range. D-Dimers may also be elevated for a variety size, and age of the thrombus. Therefore, a thromboembolic Performing Lab: see note ML - [facility] CBC AUTO DIFF Reviewed date:11/27/2024 09:38:06 AM Interpretation: Performing Lab: Notes/Report: [facility] , White Blood Count 6.8 4.0-11.0 10 3/uL Red Blood Count 5.01 4.20-5.40 10 6/uL Hemoglobin 13.6 12.0-16.0 g/dL Hematocrit 40.1 36.0-48.0 % Mean Corpuscular Volume 80.0 81.0-99.0 fL Mean Corpuscular Hemoglobin 27.1 26.7-34.0 pg Mean Corpuscular HGB Conc 33.9 29.9-35.2 g/dL Red Cell Distribution Width 12.7 11.0-15.0 % Platelet Count 294 150-450 10 3/uL Mean Platelet Volume 10.2 9.5-13.5 fL Neutrophils Percent Auto 35.6 43.0-75.0 % Lymphocytes Percent Auto 53.7 20.5-60.0 % Monocytes Percent Auto 7.3 1.7-12.0 % Eosinophils Percent Auto 2.9 0.9-7.0 % Basophils Percent Auto 0.4 0.2-2.0 % Immature Granulocytes Pct Auto 0.1 0.0-0.5 % Neutrophils Absolute Auto 2.4 1.4-6.5 10 3/uL Lymphocytes Absolute Auto 3.7 1.2-3.8 10 3/uL Monocytes Absolute Auto 0.5 0.3-0.8 10 3/uL Eosinophils Absolute Auto 0.2 0.0-0.7 10 3/uL Basophils Absolute Auto 0.0 0.0-0.1 10 3/uL Immature Granulocytes Abs Auto 0.01 0.00-0.03 10 3/uL Performing Lab: see note ML - [facility] LB DHEA, Serum Reviewed date:11/30/2024 04:37:37 PM Interpretation: Performing Lab: Notes/Report: [facility] , DHEA, Serum 803 31-701 ng/dL approved by the Food and Drug Administration. Slate Trimmer: Tabatha Srinivasan MD, Phone: [phone] determined by [facility]. It has not been cleared or Performed at: [address] [id number] This test was developed and its performance characteristics Performing Lab: see note - [facility] Reason For Referral No Information Medications Medication SIG (Take, Route, Frequency, Duration) [...] Problem Status W/U Status Risk Notes Problem Hyperglycemia (70942355) Hyperglycemia (R73.9) Active confirmed Problem Vitamin D deficiency (81086919) Vitamin D deficiency (E55.9) Active confirmed Problem Menstrual spotting (3087914) Menstrual spotting (N92.0) Active confirmed Problem Obsessive-compuls silvina disorder (167824482) OCD (obsessive compulsive disorder) (F42.9) Active confirmed Problem Obese class I (finding) (853154012833043) Class 1 obesity (E66.9) Active confirmed Vital Signs Blood pressure diastolic 68 mm Hg 12/03/2024 Height 63 in 12/03/2024 Blood pressure systolic 110 mm Hg 12/03/2024 Weight 174.2 lbs 12/03/2024 BMI 30.85 kg/m2 12/03/2024 Encounters Encounter Location Date Provider Diagnosis [facility] [address] [place] [address] 01/14/2024 DEBBIE PETERSON [facility] [address] [place] [address] 03/02/2024 Debbie Peterson [facility] [address] [place] [address] 11/09/2024 Debbie Peterson [facility] [address] [place] [address] 02/13/2024 Debbie Peterson OCD (obsessive compulsive disorder) F42.9 [facility] [address] [place] [address] 11/05/2024 Debbie Peterson Class 1 obesity E66. 9 ; Menstrual spotting N92.0 and Wellness examination Z00.00 [facility] [address] [place] [address] 12/03/2024 Debbie Peterson Class 1 obesity E66. 9 and OCD (obsessive compulsive disorder) F42.9 [facility] [address] [place] [address] 01/14/2024 DEBBIE PETERSON OCD (obsessive compulsive disorder) F42.9 Assessments Encounter Date Diagnosis (ICD Code) Assessment Notes Treatment Notes Treatment Clinical Notes Section Notes 01/14/2024 OCD (obsessive compulsive disorder) (ICD-10 - F42.9) instructions given on weaning off meds patient voices understanding over phone to nurses needs find another psych provider to manage her mental health with her extensive hx fu here one month 02/13/2024 OCD (obsessive compulsive disorder) (ICD-10 - F42.9) continue celexa ok to take at night hx low iron pt states, take MVI with iron, increase iron rich foods in diet fu if leg discomfort not improving 11/05/2024 Class 1 obesity (ICD-10 - E66.9) work on diet handouts given CSA signed OARRS reviewed fu 11/05/2024 Menstrual spotting (ICD-10 - N92.0) is due for OBGYN visit, going to call and fu Erin 12/03/2024 Class 1 obesity (ICD-10 - E66.9) work on diet hold adipex for one week and see if mood, SOB improves if so stop adipex if doesnt think SE and wants continue, fu me 5 weeks 12/03/2024 OCD (obsessive compulsive disorder) (ICD-10 - F42.9) increase dose celexa fu 11/05/2024 Wellness examination (ICD-10 - Z00.00) Plan Of Treatment Pending Test Test Name Order Date HEMOGLOBIN A1C (GLYCO) 11/05/2024 IRON, TOTAL 11/05/2024 LIPID PANEL (CHOL/TRIG/HDL/LDL) 11/06/19 25 VITAMIN D, 25 LEVEL (TOTAL) 11/05/2024 Insulin Level 11/05/2024 THYROID PANEL (T4/TSH/FREE T3) 5 CMP (COMP MET RUIZ) w/eGFR CKD-EPI 2024 CBC WITH DIFF 11/05/2024 Next Appt Details Provider Name:Debbie Cara araya, 01/07/2025 08:30:00 AM, [address] [place], [address], Insurance Providers Payer Name Payer Address Payer Phone Subscriber Number Group Number Insured Name Patient Relationship to Insured Coverage Start Date Coverage End Date [employer] ACCESS PPO PLUS LOCAL PLAN [address] [place] [address] [id number] Chelsey Huynh Self - patient is the insured Medical (General) History Medical History History ICD Code ocd adhd Surgical History Surgery Date(Month/Year) c section x2 2010
--- OUTSIDE RECORDS SUMMARY | 2024-12-11 08:17 | XMS_ITS | Clinical Summary ---
Author Organization [facility] Address [address] [address] Care Team Providers Care Qa Intern Name Role Phone Unavailable Primary Care Provider Unavailabl e Allergies Active Allergy Reactions Criticality Noted Date Comments Latex Unknown,Rash Low 12/19/2022 Other Reaction(s): rash Oxycodone-Acetaminophen Unknown 12/19/2022 Other Reaction(s): hands get hot and red Medications Multiple Vitamin (Multi Vitamin) tablet 1 (one) time each day at the same time. Active phentermine (Adipex-P) 37.5 MG tabletIndicatio ns:Encounter for weight management Take 1 tablet (37.5 mg) by mouth in the morning. Take before meals. 30 tablet 3 Active escitalopram (Lexapro) 20 MG tablet Take 20 mg by mouth in the morning. Active cholecalciferol (Vitamin D-3) 50 MCG (1999 UT) capsule TAKE 1 CAPSULE BY MOUTH EVERY DAY FOR 30 DAYS 5 Active metFORMIN XR (Glucophage-XR) 500 MG 24 hr tabletIndicatio ns:PCOS (polycystic ovarian syndrome) Take 1 tablet (500 mg) by mouth in the evening. Take with meals Do not crush, chew, or split. 30 tablet 11 5 11/25/19 26 Active metFORMIN XR (Glucophage-XR) 500 MG 24 hr tablet Take 500 mg by mouth in the evening. Take with meals. 11/25/19 25 Discontinu ed(Other) buPROPion (Wellbutrin) 75 MG tablet Take 50 mg by mouth in the morning. 11/25/19 25 Discontinu ed(Other) metFORMIN (Glucophage) 1000 MG tabletIndicatio ns:Encounter for weight management TAKE 1 TABLET BY MOUTH IN THE MORNING WITH MEALS 30 tablet 11 3 11/25/19 25 Discontinu ed(Other) Encounters Date Type Department Care Team Description 12/09/2024 Orders Only [facility] [address] [place] [address] Merlyn Rodriguez LPN Elevated dehydroepiandrosterone sulfate level 11/30/2024 10:30 AM EDT Ancillary Procedure [facility] [address] [place] [address] PCOS (polycystic ovarian syndrome) 11/29/2024 Travel 11/27/[address] [facility] [address] [place] [phone] Yonathan Khan DO 11/24/2024 9:20 AM EDT Office Visit [facility] [address] [place] [address] Yonathan Khan DO PCOS (polycystic ovarian syndrome); control counseling; Abnormal uterine bleeding (AUB); Hot flashes 11/24/2024 Clinisync Result Encounter [facility] External Department Unsolicited Yonathan Khan DO 11/24/2024 Bamboo flowsheet [facility] [address] [place] [phone] Yonathan Khan DO 11/23/2024 Travel from Last 3 Months Family History Medical History Relation Name Comments Diabetes Father Hypertension Father Relation Name Status Comments Father Social History Tobacco Use Types Packs/Day Years Used Date Smoking Tobacco: Never Smokeless Tobacco: Never Tobacco Cessation:Counseling Given: Not Answered Alcohol Use Standard Drinks/Week Comments Never 0 (1 standard drink = 0.6 oz pur e alcohol) Comments No Sex and Gender Information Value Date Recorded Sex Assigned at Not on file Legal Sex Female 10:09 PM EDT Gender Identity Not on file Sexual Orientation Not on file Last Filed Vital Signs Vital Sign Reading Time Taken Comments Blood Pressure 116/74 11/24/2024 9:55 AM EDT Pulse - - Temperature - - Respiratory Rate - - Oxygen Saturation - - Inhaled Oxygen Concentration - - Weight 78.8 kg (173 lb 12.8 oz) 11/24/2024 9:55 AM EDT Height 162.6 cm (5' 4 ) 02/12/2023 11:3 2 AM EDT Body Mass Index 29.83 02/12/2023 11:32 AM EDT Plan of Treatment Upcoming Encounters Date Type Department Care Team (Late st Contact Info) Description 12/23/2024 8:10 AM EDT Office Visit [facility] [address] [facility] [place] [address] Yonathan Khan, DO [address] [place] [address] 03/29/2025 9:30 AM EDT Office Visit [facility] [address] [facility] [place] [place] [address] Yonathan Khan, DO [address] [place], [place] [address] [address] Health Maintenance Due Date Last Done Comments Influenza Vaccine (Season Ended) 2025 08/21/19 21 Cervical Cancer Screening 11/21/2027 HPV/Cotest 11/21/2027 Pap Smear 11/21/2027 11/20/2022 Procedures Procedure Name Priority Date/Time Associated Diagnosis Comments US PELVIC COMPLETE W/ TV Routine 025 10:49 AM EDT PCOS (polycystic ovarian syndrome) ALL DEHYDROEPIANDROSTERONE Routine 11/24 10:57 AM EDT ALL ESTRONE(E1) Routine 11/24/2024 10:57 AM EDT ALL PROGESTERONE Routine 11/24/2024 10:57 AM EDT ALL FOLLICLE STIMULATING HORMONE Routine 11/24/2024 10:57 AM EDT ALL LUTEINIZING HORMONE Routine 05/06/20 25 10:57 AM EDT ALL DHEA SULFATE Routine 11/24/2024 10:57 AM EDT MLR HEMOGLOBIN A1C Routine 11/24/2024 10:57 AM EDT TBH PREG QUANT HCG Routine 11/24/2024 10:57 AM EDT ALL THYROID STIM HORMONE Routine 025 10:57 AM EDT ALL THYROXINE (T4) FREE Routine 11/25/19 25 10:57 AM EDT ALL CBC WITH AUTO DIFF Routine 10:57 AM EDT PAP SMEAR Routine 11/20/2022 12:00 AM EDT from Last 3 Months or Most Recently Relevant to Health Maintenance Results * US Pelvis w/ TV (11/30/2024 [...] II, MD, PHD at 01-Dec-2024 08:11:16 AM [facility] Procedure Note Raf Arreola MD - [...] signed by RAF ARREOLA II, MD, PHD [id number] 08:11:16 AM [facility] us [facility] US PROCEDURES Final Result * TBH PREG QUANT HCG (11/24/2024 10:57 AM EDT) HCG QUANTITATIVE <1 mIU/mL [facility] Comment: 5-50 0.2-1 WEEK 50-500 1-2 WEEKS 100-5,000 2-3 WEEKS 500-10,000 3-4 WEEKS 1,000-50,000 4-5 WEEKS 10,000-100,000 5-6 WEEKS 15,000-200,000 6-8 WEEKS 10,000-100,000 2-3 MONTHS 11/24/2024 10:5 7 AM EDT 11/24/2024 11:02 AM EDT Narrative CLINISYNC - 11/24/2024 12:24 PM EDT Yonathan CAREY Final Result Performing Organization Address [facility] de Phone Number [facility] * MLR HEMOGLOBIN A1C (11/24/2024 10:57 AM EDT) GLYCOHEMOGLOBIN A1C 5.8 4.5 - 6.2 % [facility] Comment: ADA RECOMMENDED LIMIT 4.0 - 6.0 ADA THERAPEUTIC TARGET < 7.0 ACTION SUGGESTED > 7.0 ESTIMATED AVERAGE GLUCOSE 120 mg/dL TB 11/24/2024 10:5 7 AM EDT 11/24/2024 11:02 AM EDT Narrative CLINISYNC - 11/24/2024 1:15 PM EDT [facility] [place] CARE[facility] Final Result Performing Organization Address [facility] de Phone Number [facility] * ALL THYROXINE (T4) FREE (11/24/2024 10:57 AM EDT) FREE T4 1.32 0.76 - 1.46 ng/dL TB 11/24/2024 10:5 7 AM EDT 11/24/2024 11:02 AM EDT Narrative CLINISYNC - 11/24/2024 12:20 PM EDT [facility] [place] CAREY Final Result Performing Organization Address [facility] de Phone Number [facility] * ALL THYROID STIM HORMONE (11/24/2024 10:57 AM EDT) THYROID STIMULATING HORMONE 1.598 0.358 - 3.740 uIU/mL TB 11/24/2024 10:5 7 AM EDT 11/24/2024 11:02 AM EDT Narrative CLINISYNC - 11/24/2024 12:24 PM EDT [facility] Erin DO CLINISYNC Final Result Performing Organization Address [facility] Co de Phone Number [facility] * ALL PROGESTERONE (11/24/2024 10:57 AM EDT) PROGESTERONE 0.3 . ng/mL [facility]H Comment: Follicular phase 0.1 - 0.9 Luteal phase 1.8 - 23.9 Ovulation phase 0.1 - 12.0 First trimester 11.0 - 44.3 Second trimester 25.4 - 83.3 Third trimester 58.7 - 214.0 Postmenopausal 0.0 - 0.1 Performed at: [facility] [address] [id number] Cell[employer] Worker: Jovani Morales PhD, Phone: [phone] 11/24/2024 10:5 7 AM EDT 11/24/2024 11:02 AM EDT Narrative CLINISYNC - 11/25/2024 4:11 AM EDT [facility] Final Result Performing Organization Address [facility] Co de Phone Number [facility] * ALL LUTEINIZING HORMONE (11/24/2024 10:57 AM EDT) LUTEINIZING HORMONE(LH) 9.0 . mIU/mL [facility] Comment: Adult Female Range Follicular phase 2.4 - 12.6 Ovulation phase 14.0 - 95.6 Luteal phase 1.0 - 11.4 Postmenopausal 7.7 - 58.5 11/24/2024 10:5 7 AM EDT 11/24/2024 11:02 AM EDT Narrative CLINISYNC - 11/25/2024 4:11 AM EDT Yonathan Erin DO CLINISYNC Final Result Performing Organization Address City/[facility]/ZIP Co de Phone Number [facility] * ALL FOLLICLE STIMULATING HORMONE (11/24/2024 10:57 AM EDT) FSH 7.4 . mIU/mL [facility] Comment: Adult Female Range Follicular phase 3.5 - 12.5 Ovulation phase 4.7 - 21.5 Luteal phase 1.7 - 7.7 Postmenopausal 25.8 - 134.8 11/24/2024 10:5 7 AM EDT 11/24/2024 11:02 AM EDT Narrative CLINISYNC - 11/25/2024 4:11 AM EDT Yonathan Erin DO CLINISYNC Final Result Performing Organization Address [facility] de Phone Number [facility] * ALL ESTRONE(E1) (11/24/2024 10:57 AM EDT) ESTRADIOL 34.6 . pg/mL [facility]H Comment: Adult Female Range Follicular phase 12.5 - 166.0 Ovulation phase 85.8 - 498.0 Luteal phase 43.8 - 211.0 Postmenopausal <6.0 - 54.7 1st trimester 215.0 - >4300.0 Amara ECLIA methodology 11/24/2024 10:5 7 AM EDT 11/24/2024 11:02 AM EDT Narrative CLINISYNC - 11/25/2024 4:11 AM EDT [facility] CLIN[facility] Final Result Performing Organization Address [facility] Phone Number [facility] * (ABNORMAL) ALL DHEA SULFATE (11/24/2024 10:57 AM EDT) DHEA-SULFATE 567.0(A) 57.3 - 279.2 ug/dL TB 11/24/2024 10:5 7 AM EDT 11/24/2024 11:02 AM EDT Narrative CLINISYNC - 11/25/2024 4:11 AM EDT Yonathan Erin DO CLINISYNC Final Result Performing Organization Address [facility] de Phone Number [facility] * (ABNORMAL) ALL DEHYDROEPIANDROSTERONE (11/24/2024 10:57 AM EDT) Pathologist [facility] DHEA, SERUM 803(A) 31 - 701 ng/dL TBH Comment: This test was developed and its performance characteristics determined by [facility]. It has not been cleared or approved by the Food and Drug Administration. Performed at: [facility] [address] [id number] [employer] Worker: Tabatha Srinivasan MD, Phone: [phone] 11/24/2024 10:5 7 AM EDT 11/24/2024 11:02 AM EDT Narrative CLINISYNC - 11/30/2024 1:08 PM EDT us Yonathan Erin DO CLINISYNC Final [facility] * (ABNORMAL) ALL CBC WITH AUTO DIFF (11/24/2024 10:57 AM EDT) Pathologist [facility] TB WBC 4.8 4.0 - 11.0 10 3/uL TBH TBH RBC 5.01 4.20 - 5.40 10 6/uL TBH TBH HGB 13.4 12.0 - 16.0 g/dL TBH TB HCT 40.5 36.0 - 48.0 % TBH TBH MCV 80.8(L) 81.0 - 99.0 fL TBH TBH MCH 26.7 26.7 - 34.0 pg TBH TB MCHC 33.1 29.9 - 35.2 g/dL TB TB RDW 13.0 11.0 - 15.0 % TBH TBH PLT 291 150 - 450 10 3/uL TBH TBH MPV 10.0 9.5 - 13.5 fL TBH NEUTROPHILS PERCENT AUTO 49.8 43.0 - 75.0 % TBH LYMPHOCYTES PERCENT AUTO 38.9 20.5 - 60.0 % TBH MONOCYTES PERCENT AUTO 9.2 1.7 - 12.0 % TBH TBH EO % 1.7 0.9 - 7.0 % TBH BASOPHILS PERCENT AUTO 0.2 0.2 - 2.0 % TBH IMMATURE GRANULOCYTES PCT AUTO 0.2 0.0 - 0.5 % TBH NEUTROPHILS ABSOLUTE AUTO 2.4 1.4 - 6.5 10 3/uL TBH LYMPHOCYTES ABSOLUTE AUTO 1.9 1.2 - 3.8 10 3/uL TBH MONOCYTES ABSOLUTE AUTO 0.4 0.3 - 0.8 10 3/uL TBH TBH EO # 0.1 0.0 - 0.7 10 3/uL TBH BASOPHILS ABSOLUTE AUTO 0.0 0.0 - 0.1 10 3/uL TBH IMMATURE GRANULOCYTES ABS AUTO 0.01 0.00 - 0.03 10 3/uL TBH 11/24/2024 10:5 7 AM EDT 11/24/2024 11:02 AM EDT Narrative CLINISYNC - 11/24/2024 11:47 AM EDT Yonathan Erin DO CLINISYNC Final Result CLINISYNC TB * Pap Smear (11/20/2022 12:00 AM EDT) Swab Cervical swab / Unknown us Yonathan Erin DO LAB CYTOLOGY ORDERABLES Final Re sult EXTERNAL LAB from Last 3 Months or Most Recently Relevant to Health Maintenance Insurance BS
--- OUTSIDE RECORDS SUMMARY | 2024-12-11 08:18 | XMS_ITS | Encounter Summary ---
Author Organization [facility] Address [address] [place] [address] Care Team Providers Care Automatic Lathe Setter Name Role Phone Unavailable Primary Care Provider Unavailabl e Encounter Details Date Type Department Care Team (Latest Contact Info) Description 11/29/2024 Travel Social History Tobacco Use Types Packs/Day Years [...] EDT Office Visit [facility] [address] [place] [address] Yonathan Khan, DO [address] [facility] [address] [place], [facility] 03/29/2025 9:30 AM EDT Office Visit [facility] [address] [place] [address] Yonathan Khan, DO [address] [place], [place] [id number] documented as of this encounter Visit Diagnoses Not on filedocumented in this encounter
--- OUTSIDE RECORDS SUMMARY | 2024-12-11 08:18 | XMS_ITS | Encounter Summary ---
Author Organization [facility] Address [address] [place] [address] Care Team Providers Care Yarn Inspector Name Role Phone Unavailable Primary Care Provider Unavailabl e Reason for Referral * Imaging (Routine) - Pending Review Specialty Diagnoses / Procedures Referred By Rachele plummer Referred To Contact Diagnoses Elevated dehydroepiandrosterone sulfate level Procedures CT abdomen pelvis w and wo IV contrast Yonathan Khan DO [address] [place] [address] Phone: tel: fax: Referral ID Status Reason Start Date Expiration Date V isits Requested Visits Authorized [id number] Pending Review 12/09/2024 06/07/2025 1 1 Encounter Details Date Type Department Care Team (Latest Contact Info) Description 12/09/2024 Orders Only [facility] [address] [place] [address] Merlyn Rodriguez LPN Elevated dehydroepiandrosterone sulfate level Social History Tobacco Use Types Packs/Day Years [...] EDT Office Visit [facility] [address] [facility] [place] [phone] Yonathan Khan, [address] [place] [address] 03/29/2025 9:30 AM EDT Office Visit [facility] OB [address] [facility] [place] [phone] Yonathan Khan, [address] [place] [address] Scheduled Orders Name Type Priority Associated Diagnoses Orde r Schedule 17-Hydroxyprogeste jose alberto Lab Routine Elevated dehydroepiandrosterone sulfate level Expected: 12/09/2024 (Approximate), Expires: 12/09/2025 CT abdomen pelvis w and wo IV contrast Imaging Routine Elevated dehydroepiandrosterone sulfate level Expected: 12/09/2024, Expires: 12/09/2025 documented as of this encounter Visit Diagnoses Diagnosis Elevated dehydroepiandrosterone sulfate level documented in this encounter
--- OUTSIDE RECORDS SUMMARY | 2024-12-11 08:19 | XMS_ITS | Encounter Summary ---
Author Organization [facility] Address [address] [facility] [place] [address] Care Team Providers Care Faculty Research Physician Name Role Phone Unavailable Primary Care Provider Unavailabl e Encounter Details Date Type Department Care Team (Late Contact Info) Description 11/27/2024 Telephone [facility] OB [address] [facility] [place] [address] Yonathan Khan [address] [facility] [address] [place], [facility]11 Social History Tobacco Use Types Packs/Day Years [...] on file documented as of this encounter Miscellaneous Notes * Telephone Encounter - Josefa Henson LPN - 11/27/2024 8:25 AM EDT Patient was called made aware of labs and advised that these will be drawn again in 8 weeks and that the order was sent to [facility] for her and that she can call to pre-register for these. PVU no further questions. documented in this encounter Plan of Treatment Upcoming Encounters Date Type Department Care Team (Late Contact Info) Description 12/23/2024 8:10 AM EDT Office Visit [facility] [address] [facility] [place] [address] Yonathan Khan, [address] [facility] [place] [address] 03/29/2025 9:30 AM EDT Office Visit [facility] OB [address] [facility] [place] [address] Yonathan Khan, DO [address] [facility] [place] [address] Scheduled Orders Name Type Priority Associated Diagnoses Orde r Schedule DHEA-sulfate Lab Routine PCOS (polycystic ovarian syndrome) Elevated dehydroepiandrosterone sulfate level Expected: 11/27/2024 (Approximate), Expires: 11/27/2025 documented as of this encounter Visit Diagnoses Diagnosis PCOS (polycystic ovarian syndrome) Polycystic ovaries Elevated dehydroepiandrosterone sulfate level documented in this encounter
--- OUTSIDE RECORDS SUMMARY | 2024-12-11 08:19 | XMS_ITS | Encounter Summary ---
Author Organization [facility] Address [address] [place] [address] Care Team Providers Care Site Interpreter Name Role Phone Unavailable Primary Care Provider Unavailabl e Encounter Details Date Type Department Care Team (Late Contact Info) Description 01/14/2023 Abstract [facility] OB [address] [place] [address] Yonathan Khan, DO [address] [place], [facility]11 Social History Tobacco Use Types Packs/Day Years Used Date Smoking Tobacco: Never Assessed Comments Unknown Sex and Gender Information Value Date Recorded Sex Assigned at Not on file Legal Sex Female 10:09 PM EDT Gender Identity Not on file Sexual Orientation Not on file documented as of this encounter Plan of Treatment Upcoming Encounters Date Type Department Care Team (Late Contact Info) Description 12/23/2024 8:10 AM EDT Office Visit [facility] OB [address] [place] [address] Yonathan Khan, DO [address] [place], [place] [address] 03/29/2025 9:30 AM EDT Office Visit [facility] OB [address] [place] [address] Yonathan Khan, DO [address] [place], [facility]11 documented as of this encounter Visit Diagnoses Not on filedocumented in this encounter
--- OUTSIDE RECORDS SUMMARY | 2024-12-11 08:19 | XMS_ITS | Encounter Summary ---
Author Organization [facility] Address [address] [facility] [place] [address] Care Team Providers Care Weigher Production Name Role Phone Unavailable Primary Care Provider Unavailabl e Encounter Details Date Type Department Care Team (Late Contact Info) Description 02/12/2023 Abstract [facility] OB [address] [facility] [place] [address] Bev Pandya PA [address] [place] [address] [place], [facility]11 Social History Tobacco Use Types Packs/Day Years Used Date Smoking Tobacco: Never Smokeless Tobacco: Never Alcohol Use Standard Drinks/Week Comments Never 0 (1 standard drink = 0.6 oz pur e alcohol) Comments Unknown Sex and Gender Information Value Date Recorded Sex Assigned at Not on file Legal Sex Female 10:09 PM EDT Gender Identity Not on file Sexual Orientation Not on file documented as of this encounter Plan of Treatment Upcoming Encounters Date Type Department Care Team (Late Contact Info) Description 12/23/2024 8:10 AM EDT Office Visit [facility] OB [address] [facility] [place] [address] Yonathan Khan DO [address] [place] [address] Zainab [place], [facility]11 03/29/2025 9:30 AM EDT Office Visit [facility] OB [address] [place], [place] [address] [address] Erin, Yonathan, [address] [place] [address] documented as of this encounter Visit Diagnoses Not on filedocumented in this encounter
--- OUTSIDE RECORDS SUMMARY | 2024-12-11 08:20 | XMS_ITS | Patient Health Record ---
Author Organization [facility] Address [address] [place] [address] Care Team Providers Care Radio Board Operator Name Role Phone Rita Liang Primary Care Provider ServandoReyna Unavailable [phone] Aditya Dominguez Unavailable [phone] Noelle Crane Unavailable [phone] Lara Manuel Unavailable [phone] Allergies Allergen (clinical drug ingredient) Drug/Non Drug Allergy documented on EMR Reaction Allergy Type Onset Date Status acetaminophen / oxycodone Percocet hands get hot and red Drug Allergy Active Latex Latex rash Allergy Active Reason For Referral No Information Medications Medication SIG (Take, Route, Frequency, Duration) Notes Start Date End Date Status OLANZapine 2.5 MG 1 tablet Orally twice daily As needed Active Vraylar 1.5 MG 1 capsule Orally Onc e a day for 30 days 12/06/2023 Active hydrOXYzine Pamoate 50 MG TAKE 1 CAPSULE BY MOUTH EVERY 6 HOURS NEEDED Active lamoTRIgine 100 MG 1 tablet Orally Once a day for 30 day(s) 01/03/2024 Active busPIRone HCl 15 MG 1 tablet Orally Twic e a day for 30 days 01/03/2024 Active Probiotic Active Adipex-P 37.5 MG 1 capsule Orally Onc e a day Not-Taking Multivitamin Active metFORMIN HCl 1000 MG 1 tablet with a me al Orally Once a day Active Social History Tobacco Use: Social History Observation Description Date Details (start date - stop date) Never Smoker NA - NA Tobacco Screen: Question Answer Notes Are you a: never smoker Alcohol Screening: Question Answer Notes Did you have a drink contain ing alcohol in the past year? Yes How often did you have a dri nk containing alcohol in the past year? Monthly or less (1 point) How many drinks did you have on a typical day when you were drinking in the past year? 1 or 2 (0 points) How often did you have six o r more drinks on one occasion in the past year? Never (0 points) Points 1 Interpretation Negative Depression Screening (PHQ-9): Question Answer Notes Little interest or pleasure in doing things Several days Feeling down, depressed, or hopeless Several day s Trouble falling or staying a sleep, or sleeping too much Nearly every day Feeling tired or having little energy Nearly brook ry day Poor appetite or overeating More than half the d ays Feeling bad about yourself-o r that you are a failure or have let yourself or your family down Nearly every day Trouble concentrating on thi ngs, such as reading the newspaper or watching television Several days Moving or speaking so slowly that other people could have noticed. Or the opposite being so fidgety or restless that you have been moving around a lot more than usual Nearly every day Thoughts that you would be b kalpesh off , or of hurting yourself in some way Several days(Consider Suicide Assessment Risk) Total Score 18 Intepretation Moderately severe depression Problems Problem Type SNOMED Code ICD Code Onset Dates Problem Status W/U Status Risk Notes Problem Anxiety (94082112) Anxiety (F41.9) Active confirmed Problem Mixed anxiety and depressive disorder (062059293) Depression with anxiety (F41.8) Active confirmed Problem Mood disorder (91346760) Mood disorder (F39) Active confirmed Problem Obsessive-compu lsive disorder (408095549) OCD (obsessive compulsive disorder) (F42.9) Active confirmed Problem Obese class I (88391185005254 7) BMI 33.0-33.9,adult (Z68.33) Active confirmed Problem Obese class I (81383571737863 7) BMI 33.0-33.9,adult (Z68.33) Active confirmed Problem BMI 30+ - obesity (147622765) BMI 32.0-32.9,adult (Z68.32) Active confirmed Problem Body mass index 30.00 to 34.99 (44982687584290 7) BMI 31.0-31.9,adult (Z68.31) Active confirmed Problem Body mass index 30+ - obesity (735953415) BMI 30.0-30.9,adult (Z68.30) Active confirmed Problem Recurrent major depression (78088195) Major depressive disorder, recurrent episode with anxious distress (F33.9) Active confirmed Vital Signs Heart Rate 75 /min 01/03/2024 Oximetry 98 % 01/03/2024 Blood pressure diastolic 75 mm Hg 01/03/2024 Height 63 in 01/03/2024 Blood pressure systolic 117 mm Hg 01/03/2024 Weight 167.8 lbs 01/03/2024 BMI 29.72 kg/m2 01/03/2024 Encounters Encounter Location Date Provider Diagnosis [facility] [address] [place] [address] 12/20/2023 Aditya Dominguez [facility] [address] [place] [address] 12/31/2023 [facility] [address] [place] [address] 01/15/2024 [place] [address] [place] [address] 06/17/2024 [facility] [address] [place] [address] 06/24/2024 [place] [address] [place] [address] 07/09/2024 [place] [address] [place] [address] 12/25/2023 Aditya Dominguez Depression with anxiety F41.8 [facility] [address] [place] [address] 01/15/2024 Aditya Dominguez Depression with anxiety F41.[address] [facility] [address] [place] [address] 01/29/2024 Aditya Dominguez Depression with anxiety F41.[address] [facility] [address] [place] [address] 02/12/2024 Aditya Alberto Depression with anxiety F41.8 [facility] [address] [place] [address] 02/26/2024 Aditya zTonioki Depression with anxiety F41.8 [facility] [address] [place] [address] 03/11/2024 Aditya zTonioki Depression with anxiety F41.8 [facility] [address] [place] [address] 03/24/2024 Aditya Alberto Depression with anxiety F41.8 [facility] [address] [place] [address] 04/07/2024 Aditya Brooklynki Depression with anxiety F41.8 [facility] [address] [place] [address] 04/21/2024 Aditya zTonioki Depression with anxiety F41.8 [facility] [address] [place] [address] 05/05/2024 Aditya zMendoza Depression with anxiety F41.8 [facility] [address] [place] [address] 05/20/2024 Aditya zMendoza Depression with anxiety F41.8 [facility] [address] [place] [address] 06/03/2024 Aditya zTonioki Depression with anxiety F41.8 [facility] [address] [place] [address] 08/06/2024 Reyna Rosauraada OCD (obsessive compulsive disorder) F42.9 [facility] [address] [place] [address] 08/27/2024 Reyna Hollada OCD (obsessive compulsive disorder) F42.9 [facility] [address] [place] [address] 09/15/2024 Reyna Hollada Major depressive disorder, recurrent episode with anxious distress F33.9 [facility] [address] [place] [address] 09/29/2024 Reyna Al Major depressive disorder, recurrent episode with anxious distress F33.9 [facility] [address] [place] [address] 08/11/2024 Reyna Al Anxiety F41.[address] [facility] [address] [place] [address] 12/20/2023 Aditya Alberto Depression with anxiety F41.[address] [facility] [address] [place] [address] 01/03/2024 Rita Liang Mood disorder F39 ; Anxiety F41.9 and OCD (obsessive compulsive disorder) F42.9 [facility] [address] [place] [address] 12/13/2023 Rita Liang Mood disorder F39 ; OCD (obsessive compulsive disorder) F42.9 and Anxiety F41.9 Assessments Encounter Date Diagnosis (ICD Code) Assessment Notes Treatment Notes Treatment Clinical Notes Section Notes 12/13/2023 Mood disorder (ICD-10 - F39) Recommended treatment for mood disorder includes FDA approved and OFF label medications: second generation antipsychotics and mood stabilizers. Discussed life threatening side effect of Lamotrigine. Pt is to monitor for new skin rashes or sensation of a sunburn or itchiness or redness, mouth sores or sores in mucus membranes, and call provider immediately and or go to ER, and stop the medication. Second generation antipsychotic medications can cause headache, drowsiness, agitation, dizziness, nausea, or extrapyramidal symptoms such as tremors, muscle spasms, slowness of movement or jerking of muscles. The patient verbalizes understanding with all questions answered thoroughly and is in agreement with treatment plan. Continue current treatment. . Call for problems . GOALS: . Maintain medication regimen _Improve mood stability _Improve anxiety control _Improve social and interpersonal functioning Patient/Guardian will call sooner if symptoms worsen. Patient understands to go to ER if needed if symptoms become severe. Crisis Intervention plan was discussed and agreed upon. Patient/Guardian will call 911 in case of emergency. Emergency contact information was provided to the patient/guardian. follow up 3 weeks Pharmacological management: . Alternative medication plans were discussed with the patient/guardian. All relevant side effects and potential adverse effects were discussed with the patient/guardian. Standard cautions and potential benefits were discussed. Patient/Guardian consented to the start/continuation of the treatment. 01/03/2024 Mood disorder (ICD-10 - F39) Recommended treatment for Bipolar disorder includes FDA approved and OFF label medications: second generation antipsychotics and mood stabilizers. Discussed life threatening side effect of Lamotrigine. Pt is to monitor for new skin rashes or sensation of a sunburn or itchiness or redness, mouth sores or sores in mucus membranes, and call provider immediately and or go to ER, and stop the medication. Second generation antipsychotic medications can cause headache, drowsiness, agitation, dizziness, nausea, or extrapyramidal symptoms such as tremors, muscle spasms, slowness of movement or jerking of muscles. The patient verbalizes understanding with all questions answered thoroughly and is in agreement with treatment plan. Continue current treatment with increase in buspirone and lamotrigine. . Call for problems . GOALS: . Maintain medication regimen _Improve mood stability _Improve anxiety control _Improve social and interpersonal functioning Patient/Guardian will call sooner if symptoms worsen. Patient understands to go to ER if needed if symptoms become severe. Crisis Intervention plan was discussed and agreed upon. Patient/Guardian will call 911 in case of emergency. Emergency contact information was provided to the patient/guardian. follow up 1 months. Pharmacological management: . Alternative medication plans were discussed with the patient/guardian. All relevant side effects and potential adverse effects were discussed with the patient/guardian. Standard cautions and potential benefits were discussed. Patient/Guardian consented to the start/continuation of the treatment. 12/13/2023 OCD (obsessive compulsive disorder) (ICD-10 - F42.9) 12/20/2023 Depression with anxiety (ICD-10 - F41.8) 12/25/2023 Depression with anxiety (ICD-10 - F41.8) 01/03/2024 Anxiety (ICD-10 - F41.9) 01/15/2024 Depression with anxiety (ICD-10 - F41.8) 01/29/2024 Depression with anxiety (ICD-10 - F41.8) 02/12/2024 Depression with anxiety (ICD-10 - F41.8) 02/26/2024 Depression with anxiety (ICD-10 - F41.8) 03/11/2024 Depression with anxiety (ICD-10 - F41.8) 03/24/2024 Depression with anxiety (ICD-10 - F41.8) 04/07/2024 Depression with anxiety (ICD-10 - F41.8) 04/21/2024 Depression with anxiety (ICD-10 - F41.8) 05/05/2024 Depression with anxiety (ICD-10 - F41.8) 05/20/2024 Depression with anxiety (ICD-10 - F41.8) 06/03/2024 Depression with anxiety (ICD-10 - F41.8) 08/06/2024 OCD (obsessive compulsive disorder) (ICD-10 - F42.9) 08/11/2024 Anxiety (ICD-10 - F41.9) 08/27/2024 OCD (obsessive compulsive disorder) (ICD-10 - F42.9) 09/15/2024 Major depressive disorder, recurrent episode with anxious distress (ICD-10 - F33.9) 09/29/2024 Major depressive disorder, recurrent episode with anxious distress (ICD-10 - F33.9) 12/13/2023 Anxiety (ICD-10 - F41.9) 01/03/2024 OCD (obsessive compulsive disorder) (ICD-10 - F42.9) Plan Of Treatment Next Appt Details Provider Name:Lara Manuel, 03/19/2025 09:00:00 AM, [address] [place] [address], [phone], Insurance Providers Payer Name Payer Address Payer Phone Subscriber Number Group Number Insured Name Patient Relationship to Insured Coverage Start Date Coverage End Date [employer] Primary [address] [place] [address] [id number] GARIBAY Spouse - patient is the spouse of the insured 4 BH [place] [employer] [address] [address] [place] [address] [id number] ROMANA VALLES Self - patient is the insured 3 4 [facility] [address] [place] [address] [id number] ROMANA VALLES Self - patient is the insured 3 4 [facility] [address] [place] [address] [id number] ROMANA VALLES Self - patient is the insured 3 4 [employer] [facility] [address] [place] [address] [id number] ROMANA VALLES Self - patient is the insured 3 4 Medical (General) History Surgical History Surgery Date(Month/Year) csection x2 Hospitalization History Reason Date(Month/Year) See surgical
--- NOTE | 2024-12-11 08:26 | CT_ITS ---
[address] [address] Patient Name: ROMANA VALLES MRN: [id number] date: 1990 Sex: F Assigned Patient Location: LAB Current Patient Location: LAB Accession/Order Number: [id number] Exam Date: 12/11/2024 11:19 Report Date: 12/11/2024 11:25 At the request of: ERNESTINA DE PAZ DO Procedure: CT abdomen pelvis wo/w con CT abdomen pelvis wo/w con 12/11/2024 9:27 AM SIGNS AND SYMPTOMS: Elevated Dehydroepiapiandrosterone Sulfate Level TECHNIQUE: Multidetector ct axial images of the abdomen and pelvis were obtained with and without IV contrast. Multiplanar reformats were performed and reviewed to further define anatomy and possible pathology. CT was performed with one or more of the following dose reduction techniques: Automated exposure control, adjustment of the mA and/or kV according to patient size, or use of iterative reconstruction technique. COMPARISON: None. FINDINGS: Lower Chest: Within normal limits. ABDOMEN: Liver: Within normal limits. Bile Ducts: Normal caliber. Gallbladder: No calcified gallstones. Normal caliber wall. Pancreas: Within normal limits. Spleen: Within normal limits. Adrenals: Within normal limits. Kidneys: Within normal limits. Pelvis: Reproductive Organs: There is a 2.9 cm dominant follicle in the right ovary. Ureters: Within normal limits. Bladder: Within normal limits. Bowel: Normal caliber. Mesenteric Lymph Nodes: No enlarged mesenteric lymph nodes. Peritoneum: No ascites or free air, no fluid collection. Vessels: within normal limits Retroperitoneum: Within normal limits. Abdominal Wall: Within normal limits. Bones: Mild degenerative changes are noted in the sacroiliac joints. CT/CT abdomen pelvis wo/w con IMPRESSION: No acute intra-abdominal pathology. No bowel obstruction or obstructive rapid. There is a 2.9 cm dominant follicle in the right ovary. No mass or abnormal enhancement. Impression dictated by: Moses Rodriguez M.D. 12/11/2024 11:25 AM Dictation Location: [place] [address] Electronically authenticated by: [id number] Y Date: 12/11/2024 11:25
== END 2024-12-11 08:14 | disposition home or self-care (01) ==
LOC: LAB 08:13
PROVIDERS: PCP Nurse Practitioner Family; Visit Provider Obstetrics & Gynecology
DX: R79.89 Other specified abnormal findings of blood chemistry (principal)
CPT/HCPCS: 36415; 74178; 83498; Q9967

== ENCOUNTER 2025-03-29 14:36 | Outpatient (REF) | payer BC, SELFPAY ==
--- OUTSIDE RECORDS SUMMARY | 2024-10-13 04:30 | XMS_ITS ---
Author Organization [facility] Address [address] [place] [address] Care Team Providers Care Fixed Route Operator Name Role Phone Rita Liang Primary Care Provider Reyna Al [phone] REASON FOR VISIT 2 week f/u Encounters Encounter Location Date Provider Diagnosis [place] [address] [address] [place] [address] 10/13/2024 Reyna Al Plan Of Treatment No Information Progress Notes * MARITZA VALLESOB: 8 (35 yo F)Acc No.[id number]:10/13/2024 F/U - Patient Patient: ROMANA JEAN-BAPTISTE Provider: Brad Al LPC :1990 A ge:34 Y S ex:Female Date:10/13/2024 Address:[address] [place], [place] [address] Pcp:Rita Liang Subjective: * Chief Complaints: * 1 . 2 week f/u. Objective: Therapeutic Interventions: Assessment: Plan: * Images: Care Plan Details* * Electronic signature of Katarina Al LPC on 03/29/2025 at 10:11 AM EDT Sign off status: Pending * Provider: Brad Al LPC Date: 0 10/13/2024 Generated for Rudy ng/Faxing/eTransmitting on: 0 03/29/2025 10:11 AM EDT
--- OUTSIDE RECORDS SUMMARY | 2024-10-27 04:30 | XMS_ITS ---
Author Organization [facility] Address [address] [place] [address] Care Team Providers Care Veterinary Virologist Name Role Phone Rita Liang Primary Care Provider Reyna Al [phone] REASON FOR VISIT 2 week f/u Encounters Encounter Location Date Provider Diagnosis [place] [address] [address] 10/27/2024 Reyna Al Plan Of Treatment No Information Progress Notes * MARITZA VALLESOB: 8 (35 yo F)Acc No.[id number]:10/27/2024 F/U - Patient Patient: ROMANA JEAN-BAPTISTE Provider: Brad Al LPC :1990 A ge:34 Y S ex:Female Date:10/27/2024 Address:[address] [place], [place] [phone] Pcp:Rita Liang Subjective: * Chief Complaints: * 1 . 2 week f/u. Objective: Therapeutic Interventions: Assessment: Plan: * Images: Care Plan Details* * Electronic signature of Katarina Al LPC on 03/29/2025 at 10:11 AM EDT Sign off status: Pending * Provider: Brad Al LPC Date: 0 10/27/2024 Generated for Rudy ng/Faxing/eTransmitting on: 0 03/29/2025 10:11 AM EDT
--- OUTSIDE RECORDS SUMMARY | 2024-11-09 10:25 | XMS_ITS ---
Author Organization [facility] in [place] Address [address] [place] [address] Care Team Providers Care Technical Service Specialist Name Role Phone Debbie Peterson Primary Care Provider REASON FOR VISIT Lab Results Medications Medication SIG (Take, Route, Frequency, Duration) Notes Start Date End Date Status Vitamin D3 50 MCG (2000 UT) 1 capsule Orally Once a day for 30 day(s) 11/09/2024 Active Encounters Encounter Location Date Provider Diagnosis [facility] [address] [place] [address] 11/09/2024 Debbie Peterson Plan Of Treatment Medication Medication Name Sig Start Date Stop Date Notes Vitamin D3 50 MCG (2000 UT) 1 capsule Or ally Once a day for 30 day(s) 11/09/2024 Progress Notes * Chelsey HUYNH CDOB: [birth year] (34 yo F)Acc No.[id number]:11/09/2024 Patient: Dian CHOEChelsey Dozier :1990 A ge:34 Y S ex:Female Address:[address] [place] [address], [address] * Refills Start Vitamin D3 Capsule, 50 [...] Date: Generated for Rudy mercer/Umesh/Kwabena on: 0 03/29/2025 02:40 PM EDT
--- OUTSIDE RECORDS SUMMARY | 2024-12-03 04:30 | XMS_ITS ---
Author Organization [facility] in [place] Address [address] [place] [address] Care Team Providers Care Hydroelectric Operator Name Role Phone Debbie Peterson Primary Care Provider [phone] Allergies Allergen (clinical drug ingredient) Drug/Non Drug Allergy documented on EMR Reaction Allergy Type Onset Date Status acetaminophen / oxycodone Percocet hives Drug Allergy Active REASON FOR VISIT 1 month Adipex follow up, Started patient is co SOB went to [facility] ER Medications Medication SIG (Take, Route, [...] 12/03/2024 Encounters Encounter Location Date Provider Diagnosis [facility] [address] [place] [place] [address] 12/03/2024 Debbie Peterson Class 1 obesity E66. [...] Details Follow Up: 5 weeks,prn, Reas on: Progress Notes * Chelsey HUYNH CDOB: [birth year] (34 yo F)Acc No.[id number]:12/03/2024 Progress Note Patient: Chelsey JEAN-BAPTISTE Provider: Min Peterson ([facility]), SECURITY ADMINISTRATOR :1990 A ge:34 Y S ex:Female Date:12/03/2024 Address:[address] [place] [address] [address] [id number] Check In:08:30 AM ESTCheck O ut:08:52 AM EST Subjective: * Chief Complaints: * 1 . 1 month Adipex follow up. 2. Started patient is co SOB went to [facility] ER. * HPI: G eneral: less [...] On:01/14/2024W/U Status:confirmed E66.9 Class 1 obesity Modified On:11/05/2024/U Status:confirmed N92.0 Menstrual spotting Modified On:11/05/2024/U Status:confirmed E55.9 Vitamin D deficiency Modified On:11/09/2024/U Status:confirmed R73.9 Hyperglycemia Modified On:11/26/2024/U Status:confirmed * Medical History: O cd, Adhd. [...] day , Taking Vitamin D3 50 MCG (1999) Capsule 1 capsule Orally Once a day [...] celexa fu * Preventive Medicine: Screenings/Counseling: B CT ACTION PLAN Above Normal BMI Follow-up D ietary management education, guidance, and counseling * Follow Up: 5 weeks,prn * * Electronically signed by Mercedez Peterson , HANDLE MAKER, ACADEMIC AFFAIRS MANAGER.[email or web address] [id number] on 12/04/2024 at 09:12 AM EDT Sign off status: Completed Visit Status: C HK (Check Out) true * Provider: Min Peterson ([facility]), SECURITY ADMINISTRATOR Date: 0 12/03/2024 Generated for Rudy mercer/Umesh/eTliensmitting on: 0 03/29/2025 02:39 PM EDT History and Physical Notes * HPI [...]
--- OUTSIDE RECORDS SUMMARY | 2025-01-04 07:30 | XMS_ITS ---
Author Organization [facility] in [place] Address [address] [place] [address] Care Team Providers Care Seismographer Name Role Phone KristenDebbie zavala Primary Care Provider [phone] Jemima Saran Rose [phone] Allergies Allergen (clinical drug ingredient) Drug/Non Drug Allergy documented on EMR Reaction Allergy Type Onset Date Status Latex latex (uncoded) itching Allergy Acti ve acetaminophen / oxycodone Percocet hives Drug Allergy Active REASON FOR VISIT Presents to office alone for c/o sore throat, off and on fever, bilat ear pain, nasal congestion and cough x9 days Medications Medication SIG (Take, Route, Frequency, Duration) Notes Start Date End Date Status Citalopram Hydrobromide 40 MG TAKE 1 TABLET BY MOUTH EVERY DAY FOR 30 DAYS for 90 days Active Amoxicillin-Pot Clavulanate 875-125 MG 1 tablet Orally every 12 hrs for 10 days 01/04/2025 Active Adipex-P 37.5 MG 1 tablet before torsten kfast Orally Once a day for 30 days 12/03/2024 Active metFORMIN HCl 1000 MG 1 tablet [...] No Points 0 Interpretation Negative Vital Signs Temperature 99.8 degrees Fahrenheit 01/05/20 25 Blood pressure systolic 108 mm Hg 01/05/20 25 Blood pressure diastolic 66 mm Hg 025 Height 63 in 01/04/2025 Weight 167.6 lbs 01/04/2025 BMI 29.69 kg/m2 01/04/2025 Encounters Encounter Location Date Provider Diagnosis [facility] [address] [place] [address] 01/04/2025 Saran Onofre Acute non-recurrent sinusitis, unspecified location J01.90 and Nasal congestion R09.81 Assessments Encounter Date Diagnosis (ICD Code) Assessment Notes Treatment Notes Treatment Clinical Notes Section Notes 01/04/2025 Acute non-recurrent sinusitis, unspecified location (ICD-10 - J01.90) Rest and drink more liquids, especially water. You may use a humidifier or vaporizer to help keep the drainage moist. Gymk-aje-thsugnv Nasal Saline may help the stuffy and runny nose. Use Ibuprofen and or Tylenol as needed for fever, chills, body aches or pain. Children 5 years old should not be given zeeu-oml-gcglgrm cough and cold medications such as guaifenesin and dextromethorphan. If you're over age 5, you may try wizs-azb-sqvgxjd cold medications such as guaifenesin and dextromethorphan, or multi-symptom cold reliever such as Dayquil to help reduce the symptoms. Antibiotics have been prescribed. You should take these until completed and follow the directions. Antibiotics can sometimes cause upset stomach, and in rare cases, serious allergic reactions or serious gastrointestinal problems. If you start having severe abdominal pain, severe vomiting, or bloody diarrhea, you should be reevaluated by your physician or urgent care immediately. Follow up with your Primary Care Provider or return to clinic if symptoms do not improve within 3-5 days 01/04/2025 Nasal congestion (ICD-10 - R09.81) Plan Of Treatment Medication Medication Name Sig Start Date Stop Date Notes Amoxicillin-Pot Clavulanate 875-125 MG 1 tablet Orally every 12 hrs for 10 days 01/04/2025 Treatment Notes Assessment Notes Acute non-recurrent sinusiti s, unspecified location Rest and drink more liquids, especially water. You may use a humidifier or vaporizer to help keep the drainage moist. Hwpk-xgu-aizczsh Nasal Saline may help the stuffy and runny nose. Use Ibuprofen and or Tylenol as needed for fever, chills, body aches or pain. Children 5 years old should not be given matu-wrp-rfchkxl cough and cold medications such as guaifenesin and dextromethorphan. If you're over age 5, you may try oarz-xqv-lahfwoy cold medications such as guaifenesin and dextromethorphan, or multi-symptom cold reliever such as Dayquil to help reduce the symptoms. Antibiotics have been prescribed. You should take these until completed and follow the directions. Antibiotics can sometimes cause upset stomach, and in rare cases, serious allergic reactions or serious gastrointestinal problems. If you start having severe abdominal pain, severe vomiting, or bloody diarrhea, you should be reevaluated by your physician or urgent care immediately. Follow up with your Primary Care Provider or return to clinic if symptoms do not improve within 3-5 days Next Appt Details Follow Up: 3-5 days if not i mproving, Reason: Progress Notes * REENAJhonyie CDOB: [birth year] (34 yo F)Acc No.[id number]:01/04/2025 Progress Note Patient: Chelsey JEAN-BAPTISTE Provider: Anny Onofre ([place])MD :1990 A ge:34 Y S ex:Female Date:01/04/2025 Address:[address] [place], [place] [address] Pcp:Debbie Peterson Check In:11:29 AM ESTCheck O ut:12:05 PM EST Subjective: * Chief Complaints: * P resents to office alone for c/o sore throat, off and on fever, bilat ear pain, nasal congestion and cough x9 days * HPI: S inusitis: The patient complains of symptoms of sinus infection. The symptoms have been present for 1-2 days. The symptoms are moderate. Symptomatic treatment has included OTC medication. Associated symptoms include headache, facial pain, runny nose, nasal congestion. * ROS: S kin: Rash d enies. E NT: Comments S [facility] for details. C ardiovascular: Edema d enies. P alpitations d enies. ? R espiratory: Chest pain d enies. C ough d enies. W heezing?denies. G astrointestinal: Abdominal pain d enies. N ausea d enies. V omiting d enies. * Active Problem List F42.9 OCD (obsessive compu lsive disorder) Modified On:01/14/2024/U Status:confirmed E66.9 Class 1 obesity Modified On:11/05/2024/U Status:confirmed N92.0 Menstrual spotting Modified On:11/05/2024/U Status:confirmed E55.9 Vitamin D deficiency Modified On:11/09/2024/U Status:confirmed R73.9 Hyperglycemia Modified On:11/26/2024/U Status:confirmed * Medical History: * Surgical History: c section x2 2010 and 2020 * Hospitalization/Major Diagno stic Procedure: * Family History: F ather: alive, diagnosed [...] I nterpretation N egative * Medications: T akingAdipex-P(Phentermine HCl) 37.5 MG Tablet 1 tablet before breakfast Orally Once a day Citalopram Hydrobromide 40 MG Tablet TAKE 1 TABLET BY MOUTH EVERY DAY FOR 30 DAYS metFORMIN HCl 1000 MG Tablet 1 tablet with a meal Orally Once a day Taking Adipex-P(Phentermine HCl) 37.5 MG Tablet 1 tablet before breakfast Orally Once a day Taking Citalopram Hydrobromide 40 MG Tablet TAKE 1 TABLET BY MOUTH EVERY DAY FOR 30 DAYS Taking metFORMIN HCl 1000 MG Tablet 1 tablet with a meal Orally Once a day DiscontinuedVitamin D3 50 MCG (1999 UT) Capsule 1 capsule Orally Once a day Medication List reviewed and reconciled with the patientDiscontinued Vitamin D3 50 MCG (1999 UT) Capsule 1 capsule Orally Once a day Medication List reviewed and reconciled with the patient * Allergies: P ercocet: hiveslatex: itchingno[Allergies Verified] Objective: * Vitals: W t:167.6lbs, Ht: 63 in, BP:108/66mm Hg, Temp:99.8F, BMI:29.69Index, Ht-cm: 160.02 cm, Wt-k.02 kg. * Examination: G eneral Examination: GENERAL APPEARANCE: in no acute distress, well developed, well nourished. ENT: ear and nose external appearance normal, tympanic membranes clear bilaterally, facial tenderness to palpation over sinuses. EYES: pupils equal, round, reactive to light and accomodations. ORAL CAVITY: mucosa moist. NECK: n andres supple, full range of motion, no cervical lymphadenopathy. LUNGS: c lear to auscultation bilaterally. CARDIO: no murmurs, regular rate and rhythm, S1, S2 normal. ABDOMEN: soft, nontender , not distended, bowel sounds are active. SKIN: no suspicious lesions, warm and dry. EXTREMITIES: no clubbing, cyanosis, or edema. NEUROLOGIC: nonfocal, motor strength of upper/lower extremities intact , sensory exam intact. Assessment: * Assessment: 1. A cute non-recurrent sinusitis, unspecified location - J01.90 (Primary) 2 .?Nasal congestion - R09.81 Plan: * Treatment: * Procedure Codes: * Follow Up: 3 -5 days if not improving * * Sign off status: Completed Visit Status: C HK (Check Out) true * Provider: Anny Onofre ([place])MD Date: 0 01/04/2025 Generated for Meredithi ruslan/Faroslyng/eTransmitting on: 0 03/29/2025 02:40 PM EDT History and Physical Notes * Examination Category Sub-Category Detail Notes Category Not es General Examination GENERAL APPEARANCE: in no ac kenny distress, well developed, well nourished ENT: ear and nose externa l appearance normal, tympanic membranes clear bilaterally, facial tenderness to palpation over sinuses EYES: pupils equal, round, reactive to light and accomodations NECK: neck supple, full ra nge of motion, no cervical lymphadenopathy CARDIO: no murmurs, regular rate and rhythm, S1, S2 normal LUNGS: clear to auscultatio n bilaterally ABDOMEN: soft, nontender , no t distended, bowel sounds are active NEUROLOGIC: nonfocal, motor stre ngth of upper/lower extremities intact , sensory exam intact SKIN: no suspicious lesion s, warm and dry EXTREMITIES: no clubbing, cyanosi s, or edema ORAL CAVITY: mucosa moist
--- OUTSIDE RECORDS SUMMARY | 2025-01-07 04:30 | XMS_ITS ---
Author Organization [facility] in [place] Address [address] [place] [address] Care Team Providers Care Dock Boss Name Role Phone Debbie Peterson Primary Care Provider [phone] Allergies Allergen (clinical drug ingredient) Drug/Non Drug Allergy documented on EMR Reaction Allergy Type Onset Date Status Latex latex (uncoded) itching Allergy Acti ve acetaminophen / oxycodone Percocet hives Drug Allergy Active REASON FOR VISIT 3 month follow up for adipex Medications Medication SIG (Take, Route, Frequency, Duration) [...] Interpretation Negative Vital Signs Blood pressure systolic 104 mm Hg 01/08/20 25 Blood pressure diastolic 64 mm Hg 025 Height 63 in 01/07/2025 Weight 170 lbs 01/07/2025 BMI 30.11 kg/m2 01/07/2025 Encounters Encounter Location Date Provider Diagnosis [facility] [address] [place] [address] 01/07/2025 Debbie Peterson Class 1 obesity E66.9 Assessments Encounter Date Diagnosis (ICD Code) Assessment Notes Treatment Notes Treatment Clinical Notes Section Notes 01/07/2025 Class 1 obesity (ICD-10 - E66.9) continue work on diet fu 2 months if wants to restart adipex Plan Of Treatment Treatment Notes Assessment Notes Class 1 obesity continue work on diet fu 2 months if wants to restart adipex Next Appt Details Follow Up: 2 Months,prn [place] son: Progress Notes * Chelsey HUYNH CDOB: [birth year] (34 yo F)Acc No.[id number]:01/07/2025 Progress Note Patient: Chelsey JEAN-BAPTISTE Provider: Min Peterson ([facility]), WORK ORDER CLERK :1990 A ge:34 Y S ex:Female Date:01/07/2025 Address:[address] [place], [place] [address] Check In:08:01 AM ESTCheck O ut:08:23 AM EST Subjective: * Chief Complaints: * 1 . 3 month follow up for adipex. * HPI: G eneral: down 4 lbs in 3 months discussed other options for medications not able to continue adipex at this time fu couple months if wants to re try. * ROS: G eneral/Constitutional: Fever d enies. H eadache d enies. W eight loss?denies. O phthalmologic: Discharge d enies. E ye Pain d enies. I tching and redness d enies. E NT: Nasal discharge d enies. N vadnana congestion d enies.?Sore throat d enies. C [...] M usculoskeletal: Back pain d enies. N adnres pain d enies. M uscle aches d enies. S kin: Rash d enies. S kin lesion(s) d enies. ? * Active Problem List F42.9 OCD (obsessive compu lsive disorder) Modified On:01/14/2024/U Status:confirmed E66.9 Class 1 obesity Modified On:11/05/2024/U Status:confirmed N92.0 Menstrual spotting Modified On:11/05/2024/U Status:confirmed E55.9 Vitamin D deficiency Modified On:11/09/2024/U Status:confirmed R73.9 Hyperglycemia Modified On:11/26/2024U Status:confirmed * Medical History: O cd, Adhd. * Surgical History: c section x2 2010 and 2020 . * Family History: F ather: alive, diagnosed with Unspecified essential hypertension, Diabetes mellitus without mention of complication, type II or unspecified type, not stated as uncontrolled. M other: alive. Brother(s): alive. S ister(s): [...] Once a day , Taking Citalopram Hydrobromide 40 MG Tablet TAKE 1 TABLET BY MOUTH EVERY DAY FOR 30 DAYS , Taking metFORMIN HCl 1000 MG Tablet 1 tablet with a meal Orally Once a day , Medication List reviewed and reconciled with the patient * Allergies: P ercocet: hives, latex: itching. Objective: * Vitals: W t:170lbs, Ht: 63 in, BP:104/64mm Hg, BMI:30.11Index, Ht-cm: 160.02 cm, Wt-k.11 kg. * Examination: G eneral Examinations: GENERAL [...] C lass 1 obesity - E66.9 (Primary) Plan: * Treatment: * Preventive Medicine: Screenings/Counseling: B AL ACTION PLAN Above Normal BMI Follow-up D ietary management education, guidance, and counseling * Follow Up: 2 Months,prn * * Electronically signed by Mercedez Peterosn , JUANA, PROMOTIONAL DEMONSTRATOR.WORK ORDER CLERK.[id number] on 01/08/2025 at 10:50 AM EDT Sign off status: Completed Visit Status: C HK (Check Out) true * Provider: Min Peterson ([place]), WORK ORDER CLERK Date: 0 01/07/2025 Generated for Meredithi ruslan/Umesh/eTransmitting on: 0 03/29/2025 02:40 PM EDT History and Physical Notes * HPI (History of Present Illness) Category Sub-Category Detail Notes Category Not es General down 4 lbs in 3 months discussed other options for medications not able to continue adipex at this time fu couple months if wants to re try Examination Category Sub-Category Detail Notes Category Not [...]
--- OUTSIDE RECORDS SUMMARY | 2025-03-19 05:00 | XMS_ITS ---
Author Organization [facility] Address [address] [place] [address] Care Team Providers Care Manager Fire Name Role Phone Rita Liang Primary Care Provider Reyna Al Unavailable [phone] Lara Marquez Unavailable [phone] REASON FOR VISIT 6 MONTH PROPHY R/S FROM 09/17/2024 Encounters Encounter Location Date Provider Diagnosis [facility] [address] [address] 03/19/2025 Lara Marquez Plan Of Treatment No Information Progress Notes * MARITZA VALLESOB: 8 (35 yo F)Acc No.[id number]:03/19/2025 Patient: ABBE JEAN-BAPTISTEHANIE Provider: John Manuel :1990 A ge:35 Y S ex:Female Date:03/19/2025 Address:[address] [place], [place] [address] Pcp:Rita Liang Subjective: * Chief Complaints: * 1 . 6 MONTH PROPHY R/S FROM 09/17/2024. * Medical History: Objective: * Vitals: Assessment: Plan: * Treatment: * Images: * Electronic signature of Robyn Marquez on 03/29/2025 at 10:11 AM EDT Sign off status: Pending * Provider: John Manuel Date: 0 03/19/2025 Generated for Rudy mercer/Umesh/Rachelitting on: 0 03/29/2025 10:11 AM EDT
--- OUTSIDE RECORDS SUMMARY | 2025-03-19 11:23 | XMS_ITS ---
Author Organization [facility] in [place] Address [address] [place] [address] Care Team Providers Care Water Supply Technician Name Role Phone Debbie Peterson Primary Care Provider REASON FOR VISIT repeat labs- Encounters Encounter Location Date Provider Diagnosis [facility] [address] [place] [address] 03/19/2025 Debbie Peterson Class 1 obesity E66. 9 ; Menstrual spotting N92.0 and OCD (obsessive compulsive disorder) F42.9 Assessments Encounter Date Diagnosis (ICD Code) Assessment Notes Treatment Notes Treatment Clinical Notes Section Notes 03/19/2025 Class 1 obesity (ICD-10 - E66.9) 03/19/2025 Menstrual spotting (ICD-10 - N92.0) 03/19/2025 OCD (obsessive compulsive disorder) (ICD-10 - F42.9) Plan Of Treatment Pending Test Test Name Order Date CBC W/AUTO DIFF 03/19/2025 IRON 03/19/2025 Vitamin D 03/19/2025 Progress Notes * Chelsey HUYNH CDOB: [birth year] (35 yo F)Acc No.[id number]:03/19/2025 Patient: Dian CHOEChelsey Dozier :1990 A ge:35 Y S ex:Female Address:[address] [place] [address], [address] Subjective: * Chief Complaints: * R epeat labs- * Medical History: * Surgical History: * Hospitalization/Major Diagno stic Procedure: * Medications: Objective: * Vitals: * Physical Examination: Assessment: * Assessment: 1. C lass 1 obesity - E66.9 (Primary) 2 . M enstrual spotting - N92.0 ? 3 . O CD (obsessive compulsive disorder) - F42.9 Plan: * Treatment: 2. M enstrual spotting L AB: CBC W/AUTO DIFF L AB: IRON L AB: Vitamin D 3. O CD (obsessive compulsive disorder) L AB: CBC W/AUTO DIFF L AB: IRON L AB: Vitamin D * Procedure Codes: * true * Date: Generated for Rudy mercer/Umesh/eTliensmenrrique on: 0 03/29/2025 02:40 PM EDT
--- OUTSIDE RECORDS SUMMARY | 2025-03-29 14:40 | XMS_ITS | Patient Health Record ---
Author Organization [facility] Address [address] [place] [address] Care Team Providers Care Kiln Packer Name Role Phone Rita Liang Primary Care Provider Reyna Al Unavailable [phone] Aditya Dominguez Unavailable Noelle Crane Unavailable [phone] Lara Marquez Unavailable [phone] Allergies Allergen (clinical drug ingredient) Drug/Non Drug [...] MG 1 capsule Orally Onc e a day; Duration: 30 days 12/06/2023 Active hydrOXYzine Pamoate 50 MG TAKE 1 CAPSULE BY MOUTH EVERY 6 HOURS NEEDED Active lamoTRIgine 100 MG 1 tablet Orally Once a day; Duration: 30 day(s) 01/03/2024 Active busPIRone HCl 15 MG 1 tablet Orally Twic e a day; Duration: 30 days 01/03/2024 Active Probiotic Active Adipex-P [...] Status W/U Status Risk Notes Problem Anxiety (89063633) Anxiety (F41.9) Active confirmed Problem Mixed anxiety and depressive disorder (862220965) Depression with anxiety (F41.8) Active confirmed Problem Mood disorder (28451976) Mood disorder (F39) Active confirmed Problem Obsessive-compu lsive disorder (011610242) OCD (obsessive compulsive disorder) (F42.9) Active confirmed Problem Obese class I (17590805595568 7) BMI 33.0-33.9,adult (Z68.33) Active confirmed Problem Obese class I (36437694394068 7) BMI 33.0-33.9,adult (Z68.33) Active confirmed Problem BMI 30+ - obesity (073661739) BMI 32.0-32.9,adult (Z68.32) Active confirmed Problem Body mass index 30.00 to 34.99 (41513929657365 7) BMI 31.0-31.9,adult (Z68.31) Active confirmed Problem Body mass index 30+ - obesity (509541269) BMI 30.0-30.9,adult (Z68.30) Active confirmed Problem Recurrent major depression (81378377) Major depressive disorder, recurrent episode with anxious distress (F33.9) Active confirmed Encounters Encounter Location Date Provider Diagnosis [facility] [address] [address] 06/17/2024 [facility] [address] [place] [address] 06/24/2024 [facility] [address] [place] [address] 07/09/2024 [place] [address] [place] [address] 04/07/2024 Adityajag Dominguez Depression with anxiety F41.8 [facility] [address] [place] [address] 04/21/2024 Aditya Alberto Depression with anxiety F41.8 [facility] [address] [place] [address] 05/05/2024 Aditya Brooklynki Depression with anxiety F41.8 [facility] [address] [place] [address] 05/20/2024 Aditya Alberto Depression with anxiety F41.8 [facility] [address] [place] [address] 06/03/2024 Aditya Alberto Depression with anxiety F41.8 [facility] [address] [place] [address] 08/06/2024 Reyna Hollada OCD (obsessive compulsive disorder) F42.9 [facility] [address] [place] [address] 08/27/2024 Reyna Hollada OCD (obsessive compulsive disorder) F42.9 [facility] [address] [place] [address] 09/15/2024 Reyna Al Major depressive disorder, recurrent episode with anxious distress F33.9 [facility] [address] [place] [address] 09/29/2024 Reyna Al Major depressive disorder, recurrent episode with anxious distress F33.9 [facility] [address] [place] [address] 08/11/2024 Reyna Al Anxiety F41.9 Assessments Encounter Date Diagnosis (ICD Code) Assessment Notes Treatment Notes Treatment Clinical Notes Section Notes 04/07/2024 Depression with anxiety (ICD-10 - F41.8) [...] episode with anxious distress (ICD-10 - F33.9) Plan Of Treatment No Information Insurance Providers Payer Name Payer Address Payer Phone Subscriber Number Group Number Insured Name Patient Relationship to Insured Coverage Start Date Coverage End Date ANTH Primary [address] [place] [address] [id number] DAVE ABA VALLES Spouse - patient is the spouse of the insured 4 BH [place] [employer] [address] [address] [place] [address] [id number] ROMANA VALLES Self - patient is the insured 3 4 [facility] [address] [place] [address] [id number] ROMANA VALLES Self - patient is the insured 3 4 [employer] [address] [facility] [place] [address] [id number] ROMANA VALLES Self - patient is the insured 3 4 [employer] [facility] [employer] [address] [place] [address] [id number] ROMANA VALLES Self - patient is the insured 3 4 Medical (General) History Surgical History Surgery Date(Month/Year) csection x2 Hospitalization History Reason Date(Month/Year) See surgical
--- OUTSIDE RECORDS SUMMARY | 2025-03-29 14:40 | XMS_ITS | Patient Health Record ---
Author Organization [facility] in [place] Address [address] [place] [address] Care Team Providers Care Amusement Or Recreation Card Checker Name Role Phone Debbie Peterson Primary Care Provider [phone] José MiguelkwadwoSaran [phone] Allergies Allergen (clinical drug ingredient) Drug/Non Drug Allergy documented on EMR Reaction Allergy Type Onset Date Status Latex latex (uncoded) itching Allergy Acti ve acetaminophen / oxycodone Percocet hives Drug Allergy Active Results Component Value Reference Range Notes FREE T3 Reviewed date:11/09/2024 02:29:09 PM Interpretation: Performing Lab: Notes/Report: [facility] , Free T3 2.74 2.18-3.98 pg/mL Performing Lab: see note - [facility] LB GLYCOHEMOGLOBIN A1C Reviewed date:11/09/2024 02:29:09 PM Interpretation: Performing Lab: Notes/Report: [facility] , Glycohemoglobin A1C 5.5 4.5-6.2 % ADA RECOMMENDED LIMIT 4.0 - 6.0 ADA THERAPEUTIC TARGET < 7.0 ACTION SUGGESTED > 7.0 Estimated Average Glucose 111 Performing Lab: see note - [facility] LB INSULIN Reviewed date:11/10/2024 09:29:09 AM Interpretation: Performing Lab: Notes/Report: [facility] , Insulin 10.2 2.6-24.9 uIU/mL Performed at: - [facility] [address] [id number] Compensation Intern: Jovani Morales PhD, Phone: [phone] Performing Lab: see note - [facility] LB IRON Reviewed date:11/09/2024 02:29:09 PM Interpretation: Performing Lab: Notes/Report: [facility] , Iron 50.0 50.0-170.0 ug/dL Performing Lab: see note ML - [facility] LB LIPID PROFILE Reviewed date:11/09/2024 02:29:09 PM Interpretation: Performing Lab: Notes/Report: [facility] , Triglycerides 45 <=150 mg/dL Cholesterol 172 <=200 mg/dL HDL Cholesterol 72 40-60 mg/dL > or =60 mg/dl - LOW CARDIOVASCULAR RISK <40 mg/dl - HIGH CARDIOVASCULAR RISK LDL Cholesterol Calculated 91.0 <100 mg/dl OPTIMAL 100-129 mg/dl NEAR OR ABOVE OPTIMAL 130-159 mg/dl BORDERLINE HIGH 160-189 mg/dl HIGH >190 mg/dl VERY HIGH VLDL CHOLESTEROL 9.0 Chol HDL Ratio 2.4 3.3 - 4.4 LOW RISK 4.4 - 7.1 AVERAGE RISK 7.1 - 11.0 MODERATE RISK >11.0 HIGH RISK Performing Lab: see note ML - [facility] LB PROF 14(COMP METB) Reviewed date:11/09/2024 02:29:09 PM Interpretation: Performing Lab: Notes/Report: [facility] , Sodium 140 136-145 mmol/L [...] 1.0 Performing Lab: see note ML - [facility] LB T4 Reviewed date:11/09/2024 02:29:09 PM Interpretation: Performing Lab: Notes/Report: [facility] , T4 Thyroxine 8.60 4.80-13.90 ug/dL Performing Lab: see note ML - [facility] LB TSH Reviewed date:11/09/2024 02:29:09 PM Interpretation: Performing Lab: Notes/Report: [facility] , Thyroid Stimulating Hormone 1.973 0.35 8-3.740 uIU/mL Performing Lab: see note ML - [facility] LB VITAMIN D 25 [place] Reviewed date:11/09/2024 02:29:01 PM Interpretation: Performing Lab: Notes/Report: [facility] , Vitamin D 27.0 <20 ng/mL Vit D deficient 20-<30 ng/mL Vit D insufficient 30-100 ng/mL Vit D sufficient >100 ng/mL Potential Toxicity Performing Lab: see note ML - [facility] LB CBC AUTO DIFF Reviewed date:11/26/2024 01:57:47 PM Interpretation: Performing Lab: Notes/Report: [facility] , White Blood Count 4.8 4.0-11.0 10 3/uL Red Blood Count 5.01 4.20-5.40 10 6/uL Hemoglobin 13.4 12.0-16.0 g/dL Hematocrit 40.5 36.0-48.0 % Mean Corpuscular Volume 80.8 81.0-99.0 fL Mean Corpuscular Hemoglobin 26.7 26.7-34.0 pg Mean Corpuscular HGB Conc 33.1 29.9-3 5.2 g/dL Red Cell Distribution Width 13.0 11.0-15.0 % Platelet Count 291 150-450 10 3/uL Mean Platelet Volume 10.0 9.5-13.5 fL Neutrophils Percent Auto 49.8 43.0-75.0 % Lymphocytes Percent Auto 38.9 20.5-60.0 % Monocytes Percent Auto 9.2 1.7-12.0 % Eosinophils Percent Auto 1.7 0.9-7.0 % Basophils Percent Auto 0.2 0.2-2.0 % Immature Granulocytes Pct Auto 0.2 0.0-0.5 % Neutrophils Absolute Auto 2.4 1.4-6. 5 10 3/uL Lymphocytes Absolute Auto 1.9 1.2-3. 8 10 3/uL Monocytes Absolute Auto 0.4 0.3-0.8 10 3/uL Eosinophils Absolute Auto 0.1 0.0-0. 7 10 3/uL Basophils Absolute Auto 0.0 0.0-0.1 10 3/uL Immature Granulocytes Abs Auto 0.01 0.00-0.03 10 3/uL Performing Lab: see note - [facility] FREE T4 Reviewed date:11/26/2024 01:57:47 PM Interpretation: Performing Lab: Notes/Report: [facility] Free T4 1.32 0.76-1.46 ng/dL Performing Lab: see note - [facility] GLYCOHEMOGLOBIN A1C Reviewed date:11/26/2024 01:57:47 PM Interpretation: Performing Lab: Notes/Report: [facility] , Glycohemoglobin A1C 5.8 4.5-6.2 % ADA RECOMMENDED LIMIT 4.0 - 6.0 ADA THERAPEUTIC TARGET < 7.0 ACTION SUGGESTED > 7.0 Estimated Average Glucose 120 Performing Lab: see note - [facility] PREG QUANT HCG Reviewed date:11/26/2024 01:57:47 PM Interpretation: Performing Lab: Notes/Report: [facility] , HCG Quantitative <1 5-50 0.2-1 WEEK 50-500 1-2 WEEKS 100-5,000 2-3 WEEKS 500-10,000 3-4 WEEKS 1,000-50,000 4-5 WEEKS 10,000-100,000 5-6 WEEKS 15,000-200,000 6-8 WEEKS 10,000-100,000 2-3 MONTHS Performing Lab: see note - [facility] TSH Reviewed date:11/26/2024 01:57:47 PM Interpretation: Performing Lab: Notes/Report: [facility] , Thyroid Stimulating Hormone 1.598 0.35 8-3.740 uIU/mL Performing Lab: see note - [facility] Progesterone Reviewed date:11/26/2024 01:57:47 PM Interpretation: Performing Lab: Notes/Report: [facility] , Progesterone 0.3 . ng/mL Follicular phase 0.1 - 0.9 Luteal phase 1.8 - 23.9 Ovulation phase 0.1 - 12.0 First trimester 11.0 - 44.3 Second trimester 25.4 - 83.3 Third trimester 58.7 - 214.0 Postmenopausal 0.0 - 0.1 Performed at: [address] [id number] Compensation Intern: Jovani Morales PhD, Phone: [phone] Performing Lab: see note - [facility] LB Luteinizing Hormone(LH) Reviewed date:11/26/2024 01:57:47 PM Interpretation: Performing Lab: Notes/Report: [facility] , Luteinizing Hormone(LH) 9.0 . mIU/mL Adult Female Range Follicular phase 2.4 - 12.6 Ovulation phase 14.0 - 95.6 Luteal phase 1.0 - 11.4 Postmenopausal 7.7 - 58.5 Performing Lab: see note [facility] LB FSH Reviewed date:11/26/2024 01:57:47 PM Interpretation: Performing Lab: Notes/Report: [facility] , FSH 7.4 . mIU/mL Adult Female Range Follicular phase 3.5 - 12.5 Ovulation phase 4.7 - 21.5 Luteal phase 1.7 - 7.7 Postmenopausal 25.8 - 134.8 Performing Lab: see note [facility] LB Estradiol Reviewed date:11/26/2024 01:57:47 PM Interpretation: Performing Lab: Notes/Report: [facility] , Estradiol 34.6 . pg/mL Adult Female Range Follicular phase 12.5 - 166.0 Ovulation phase 85.8 - 498.0 Luteal phase 43.8 - 211.0 Postmenopausal <6.0 - 54.7 1st trimester 215.0 - >4300.0 Amara ECLIA methodology Performing Lab: see note [facility] DHEA-Sulfate Reviewed date:11/26/2024 01:57:47 PM Interpretation: Performing Lab: Notes/Report: [facility] , DHEA-Sulfate 567.0 57.3-279.2 ug/dL Performing Lab: see note [facility] LB CBC AUTO DIFF Reviewed date:11/27/2024 09:38:06 AM Interpretation: Performing Lab: Notes/Report: [facility] , White Blood Count 6.8 4.0-11.0 10 3/uL Red Blood Count 5.01 4.20-5.40 10 6/uL Hemoglobin 13.6 12.0-16.0 g/dL Hematocrit 40.1 36.0-48.0 % Mean Corpuscular Volume 80.0 81.0-99.0 fL Mean Corpuscular Hemoglobin 27.1 26.7-34.0 pg Mean Corpuscular HGB Conc 33.9 29.9-3 5.2 g/dL Red Cell Distribution Width 12.7 11.0-15.0 % Platelet Count 294 150-450 10 3/uL Mean Platelet Volume 10.2 9.5-13.5 fL Neutrophils Percent Auto 35.6 43.0-75.0 % Lymphocytes Percent Auto 53.7 20.5-60.0 % Monocytes Percent Auto 7.3 1.7-12.0 % Eosinophils Percent Auto 2.9 0.9-7.0 % Basophils Percent Auto 0.4 0.2-2.0 % Immature Granulocytes Pct Auto 0.1 0.0-0.5 % Neutrophils Absolute Auto 2.4 1.4-6. 5 10 3/uL Lymphocytes Absolute Auto 3.7 1.2-3. 8 10 3/uL Monocytes Absolute Auto 0.5 0.3-0.8 10 3/uL Eosinophils Absolute Auto 0.2 0.0-0. 7 10 3/uL Basophils Absolute Auto 0.0 0.0-0.1 10 3/uL Immature Granulocytes Abs Auto 0.01 0.00-0.03 10 3/uL Performing Lab: see note ML - [facility] LB INFLUENZA A AND B AG Reviewed date:11/27/2024 09:38:06 AM Interpretation: Performing Lab: Notes/Report: [facility] , Influenza Virus A Antigen Negative Negative for Flu A protein antigen. Infection due to Flu A cannot be ruled out. Flu A antigen in the sample may be below the detection limit of the test. Influenza Virus B Antigen Negative Negative for Flu B protein antigen. Infection due to Flu B cannot be ruled out. Flu B antigen in the sample may be below the detection limit of the test. Performing Lab: see note ML - [facility] LB PROF 14(COMP METB) Reviewed date:11/27/2024 09:38:06 AM Interpretation: Performing Lab: Notes/Report: [facility] , Sodium 136 136-145 mmol/L [...] 0.9 Performing Lab: see note ML - [facility] LB Troponin I High Sensitivity Reviewed date:11/27/2024 09:38:06 AM Interpretation: Performing Lab: Notes/Report: [facility] , Troponin I High Sensitivity <4.0 4.0- 51.3 pg/mL CUT-OFF POINTS HAVE BEEN ESTABLISHED BASED ON THE FOURTH UNIVERSAL DEFINITION OF MYOCARDIAL INFARCTION. THE UPPER REFERENCE LIMIT (URL) OF TROPONIN, DEFINED THE 99TH PERCENTILE OF cTnI DISTRIBUTION IN A REFERENCE POPULATION, HAS BEEN CONFIRMED THE DECISION THRESHOLD FOR MD DIAGNOSIS. 99TH PERCENTILE = 51.4 PG/ML NOTE: HIGH-SENSITIVITY TROPONIN ASSAY IS NOT INTENDED TO BE USED IN ISOLATION BUT SHOULD BE INTERPRETED IN CONJUNCTION WITH OTHER DIAGNOSTIC AND CLINICAL INFORMATION. Performing Lab: see note ML - [facility] LB SARS-CoV-2 Ag* Reviewed date:11/27/2024 09:38:06 AM Interpretation: Performing Lab: Notes/Report: [facility] , SARS-CoV-2 Ag NEGATIVE NEGATIVE This test has not been FDA cleared or approved, but has been authorized by the FDA under an Emergency Use Authorization (EUA) for use by authorized laboratories certified under CLIA that meet the requirements to perform moderate or high complexity testing. This test has been authorized only for the detection of proteins from SARS-CoV-2, not for any other viruses or pathogens. The emergency use of this test is authorized for the duration of the declaration that circumstances exist justifying the authorization of emergency use of in vitro diagnostic tests for detection and/or diagnosis of Covid-19 under section 564(b)(1) of the Act, 21 U.S.C. 360bbb-3(b)(1), unless the declaration is terminated or authorization is revoked sooner. Performing Lab: see note ML - [facility] LB Urine Culture - [facility] Reviewed date:11/30/2024 11:44:15 AM Interpretation: Performing Lab: Notes/Report: [facility] , Urine Culture - [facility] See Below For Report Urine Culture - [facility] >100,000 colonies/ml mixed Urine Culture - [facility] bacterial skin contaminants Urine Culture - [facility] >100,000 colonies/ml mixed Urine Culture - [facility] 2 Days Urine Culture - [facility] >100,000 colonies/ml mixed Urine Culture - [facility] Urine Culture - [facility] >100,000 colonies/ml mixed Urine Culture - [facility] Testing performed a [facility] Urine Culture - [facility] >100,000 colonies/ml mixed Urine Culture - [facility] [address] [place] [address] Urine Culture - [facility] >100,000 colonies/ml mixed Performing Lab: see note ML - [facility] LB ECG 12 lead Reviewed date:11/30/2024 11:44:16 AM Interpretation: Performing Lab: Notes/Report: Source Facility: [facility]-[address] [place] [address] [place] [address] Electrocardiograph Report Signed Patient: CHELSEY HUYNH MR#: [id number] : 1990 Acct:[id number] Age/Sex: 34 / F ADM Date: 11/26/24 Loc: ER Attending Dr: Ordering Physician: Reyna Garcia Date of Service: 11/26/24 Procedure(s): ECG 12 lead Accession Number(s): [id number] cc: [facility] Test Date: 2024-11-26 Pat Name: CHELSEY HUYNH Department: Room: - Gender: Female Regulatory Attorney: : 1990 Requested By: 0939 Order Number: [id number] Reading MD: FLAVIO SHARIF M.D. Measurements Intervals [place] Rate: 86 P: 63 NH: 172 QRS: 98 QRSD: 88 T: 6 QT: 358 QTc: 401 Interpretive Statements 1100 Sinus rhythm Nonspecific Twave abnormality 7102 Moderate right axis deviation 9150 abnormal ECG Compared to ECG 12/25/2022 12:05:27 No significant changes Electronically Signed On 11-27-2024 18:41:44 EDT by FLAVIO SHARIF M.D. Dictated By: FLAVIO SHARIF Signed By: 11/27/241841 DD/ 15 TD/TT: Terminal Carman: [place] [address] Electrocardiograph Report Signed Patient: ALEX HUYNH MR#: [id number] : 1990 Acct:[id number] Age/Sex: 34 / F ADM Date: 11/26/24 Loc: ER Attending Dr: Ordering Physician: Reyna Garcia Date of Service: 11/26/24 Procedure(s): ECG 12 lead Accession Number(s): [id number] cc: [facility] Test Date: 2024-11-26 Pat Name: CHELSEY HUYNH Department: 67 Room: - Gender: Female Regulatory Attorney: : 1990 Requ ested By: 0939 Order Number: [id number] Reading MD: FLAVIO SHARIF M.D. Measurements Intervals [place] Rate: 86 P: 63 NH: 172 QRS: 98 QRSD: 88 T: 6 QT: 358 QTc: 401 Interpretive Statements 1100 Sinus rhythm Nonspecific Twave abnormality 7102 Moderate right axis deviation 9150 abnormal ECG Compared to ECG 12/2022 12:05:27 No significant changes Electronically Shannan d On 11-27-2024 18:41:44 EDT by FLAVIO SHARIF M.D. Dictated By: FLAVIO SHARIF Signed By: 11/27/241841 DD/ 15 TD/TT: Terminal Carman: 17-[place] Progesterone LCMS Reviewed date:12/17/2024 08:57:11 AM Interpretation: Performing Lab: Notes/Report: [facility] , 17-OH Progesterone LCMS 142 . ng/dL Adult Female Follicular 15 - 70 Luteal 35 - 290 This test was developed and its performance characteristics determined by [facility]. It has not been cleared or approved by the Food and Drug Administration. Performed at: [facility] Lab[address] [id number] Compensation Intern: Tabatha Srinivasan MD, Phone: [phone] Performing Lab: see note - [facility] LB CT abdomen pelvis wo con Reviewed date:12/11/2024 12:05:33 PM Interpretation: Performing Lab: Notes/Report: Source Facility: [place] [address] CT Scan Report Signed Patient: CHELSEY HUYNH MR#: [id number] : 1990 Acct:[id number] Age/Sex: 34 / F ADM Date: 12/11/24 Loc: LAB Attending Dr: Ernestina Khan D.O. Ordering Physician: Ernestina Khan D.O. Date of Service: 12/11/24 Procedure(s): CT abdomen pelvis wo/w con Accession Number(s): [id number] cc: DEBBIE PETERSON [place] [address] Patient Name: CHELSEY HUYNH MRN: [facility]:[id number] date: 1990 Sex: F Assigned Patient Location: LAB Current Patient Location: LAB Accession/Order Number: [id number] Exam Date: 12/11/2024 11:19 Report Date: 12/11/2024 11:25 At the request of: ERNESTINA KHAN DO Procedure: CT abdomen pelvis wo/w con CT abdomen pelvis wo/w con 12/11/2024 9:27 AM SIGNS AND SYMPTOMS: Elevated Dehydroepiapiandrosterone Sulfate Level TECHNIQUE: Multidetector ct axial images of the abdomen and pelvis were obtained with and without IV contrast. Multiplanar reformats were performed and reviewed to further define anatomy and possible pathology. CT was performed with one or more of the following dose reduction techniques: Automated exposure control, adjustment of the mA and/or kV according to patient size, or use of iterative reconstruction technique. COMPARISON: None. FINDINGS: Lower Chest: Within normal limits. ABDOMEN: Liver: Within normal limits. Bile Ducts: Normal caliber. Gallbladder: No calcified gallstones. Normal caliber wall. Pancreas: Within normal limits. Spleen: Within normal limits. Adrenals: Within normal limits. Kidneys: Within normal limits. Pelvis: Reproductive Organs: There is a 2.9 cm dominant follicle in the right ovary. Ureters: Within normal limits. Bladder: Within normal limits. Bowel: Normal caliber. Mesenteric Lymph Nodes: No enlarged mesenteric lymph nodes. Peritoneum: No ascites or free air, no fluid collection. Vessels: within normal limits Retroperitoneum: Within normal limits. Abdominal Wall: Within normal limits. Bones: Mild degenerative changes are noted in the sacroiliac joints. CT/CT abdomen pelvis wo/w con IMPRESSION: No acute intra-abdominal pathology. No bowel obstruction or obstructive rapid. There is a 2.9 cm dominant follicle in the right ovary. No mass or abnormal enhancement. Impression dictated by: Moses Rodriguez M.D. 12/11/2024 11:25 AM Dictation Location: [place] [address] Electronically authenticated by: [id number] Y Date: 12/11/2024 11:25 Dictated By: Moses Rodriguez M.D. Signed By: 12/11/24 1128 DD/ TD/TT: Terminal Carman: [place] [address] CT Scan Report Signed Patient: ALEX HUYNH MR#: [id number] : 1990 Acct:[id number] Age/Sex: 34 / F ADM Date: 12/11/24 Loc: LAB Attending Dr: Ernestina Khan D.O. Ordering Physician: Ernestina Khan D.O. Date of Service: 12/11/24 Procedure(s): CT abd omen pelvis wo/w con Accession Number(s): [id number] cc: DEBBIE PETERSON The [address] [address] Patient Name: CHELSEY HUYNH MRN: [id number] date: 1990 Sex: F Assigned Patient Loc ation: LAB Current Patient Loca tion: LAB Accession/Order Numb er: [id number] Exam Date: 12/11/2024 11:19 Report Date: 12/11/2024 11:25 At the request of: ERNESTINA KHAN DO Procedure: CT abdome n pelvis wo/w con CT abdomen pelvis wo /w con 12/11/2024 9:27 AM SIGNS AND SYMPTOMS: Elevated Dehydroepiapiandrosterone Sulfate Level TECHNIQUE: Multidete ctor ct axial images of the abdomen and pelvis were obtained with and wi thout IV contrast. Multiplanar reformats were performed and reviewed to furt her define anatomy and possible pathology. CT was performed with one o r more of the following dose reduction techniques: Automated exposure c ontrol, adjustment of the mA and/or kV according to patient size, or use of iterative reconstruction technique. COMPARISON: None. FINDINGS: Lower Chest: Within normal limits. ABDOMEN: Liver: Within normal limits. Bile Ducts: Normal caliber. Gallbladder: No calc ified gallstones. Normal caliber wall. Pancreas: Within nor mal limits. Spleen: Within silvano l limits. Adrenals: Within nor mal limits. Kidneys: Within norm al limits. Pelvis: Reproductive Organs: There is a 2.9 cm dominant follicle in the right ovary. Ureters: Within norm al limits. Bladder: Within norm al limits. Bowel: Normal caliber. Mesenteric Lymph Nod es: No enlarged mesenteric lymph nodes. Peritoneum: No ascit es or free air, no fluid collection. Vessels: within norm al limits Retroperitoneum: Wit hin normal limits. Abdominal Wall: With in normal limits. Bones: Mild degenera tive changes are noted in the sacroiliac joints. C T/CT abdomen pelvis wo/w con IMPRESSION: No acute intra-abdom inal pathology. No bowel obstruction or obstructive rapid. There is a 2.9 cm do minant follicle in the right ovary. No mass or abnormal enhancement. Impression dictated by: Moses Rodriguez M.D. 12/11/2024 11:25 AM Dictation Location: [facility]24 Electronically authe nticated by: [id number] Y Date: 12/11/2024 11:25 Dictated By: Moses Rodriguez M.D. Signed By: 12/11/24 1128 DD/ 1125 TD/TT: Terminal Carman: UA RANDOM W or MICROSCOPIC Reviewed date:11/27/2024 09:38:06 AM Interpretation: Performing Lab: Notes/Report: [facility] , Color Urine LT. YELLOW YELLOW Clarity Urine SL CLOUDY CLEAR Specific Eddy Urine 1.010 1.005-1.025 pH Urine 7.0 5.0-9.0 [...] SEEN NONE SEEN #/LPF Urine Culture Indicated YES-[facility] [place] Performing Lab: see note ML - [facility] LB D-DIMER Reviewed date:11/27/2024 09:38:06 AM Interpretation: Performing Lab: Notes/Report: [facility] , D Dimer 0.39 <=0.59 mg/L FEU Increases in D-Dimer concentration observed with thromboembolic events can be variable due to localization, size, and age of the thrombus. Therefore, a thromboembolic event cannot be diagnosed with certainty on the basis of the reference range. D-Dimers may also be elevated for a variety of disorders including advanced age, , coronary disease, cancer, liver disease, infection, inflammation, hematoma, DIC, trauma, post-surgery, diabetes, thrombolytic or anticoagulant therapy, stress, and generalized hospitalization. Performing Lab: see note ML - [facility] LB DHEA, Serum Reviewed date:11/30/2024 04:37:37 PM Interpretation: Performing Lab: Notes/Report: [facility] , DHEA, Serum 803 31-701 ng/dL This test was developed and its performance characteristics determined by [facility]. It has not been cleared or approved by the Food and Drug Administration. Performed at: [facility] [address], [place], [place] [id number] Compensation Intern: Tabatha Srinivasan MD, Phone: [phone] Performing Lab: see note - [facility] LB CBC AUTO DIFF Reviewed date:11/09/2024 02:29:09 PM Interpretation: Performing Lab: Notes/Report: [facility] , White Blood Count 6.0 4.0-11.0 10 3/uL Red Blood Count 4.67 4.20-5.40 10 6/uL Hemoglobin 12.4 12.0-16.0 g/dL Hematocrit 38.7 36.0-48.0 % Mean Corpuscular Volume 82.9 81.0-99.0 fL Mean Corpuscular Hemoglobin 26.6 26.7-34.0 pg Mean Corpuscular HGB Conc 32.0 29.9-3 5.2 g/dL Red Cell Distribution Width 12.7 11.0-15.0 % Platelet Count 279 150-450 10 3/uL Mean Platelet Volume 10.1 9.5-13.5 fL Neutrophils Percent Auto 57.2 43.0-75.0 % Lymphocytes Percent Auto 33.6 20.5-60.0 % Monocytes Percent Auto 6.4 1.7-12.0 % Eosinophils Percent Auto 2.2 0.9-7.0 % Basophils Percent Auto 0.3 0.2-2.0 % Immature Granulocytes Pct Auto 0.3 0.0-0.5 % Neutrophils Absolute Auto 3.4 1.4-6. 5 10 3/uL Lymphocytes Absolute Auto 2.0 1.2-3. 8 10 3/uL Monocytes Absolute Auto 0.4 0.3-0.8 10 3/uL Eosinophils Absolute Auto 0.1 0.0-0. 7 10 3/uL Basophils Absolute Auto 0.0 0.0-0.1 10 3/uL Immature Granulocytes Abs Auto 0.02 0.00-0.03 10 3/uL Performing Lab: see note ML - [facility] Reason For Referral No Information Medications Medication [...] Status W/U Status Risk Notes Problem Hyperglycemia (63901206) Hyperglycemia (R73.9) Active confirmed Problem Vitamin D deficiency (18383409) Vitamin D deficiency (E55.9) Active confirmed Problem Menstrual spotting (2238896) Menstrual spotting (N92.0) Active confirmed Problem Obsessive-compuls silvina disorder (657855473) OCD (obsessive compulsive disorder) (F42.9) Active confirmed Problem Obese class I (finding) (091968910272264) Class 1 obesity (E66.9) Active confirmed Vital Signs Temperature 99.8 degrees Fahrenheit 01/04/2025 Blood pressure diastolic 64 mm Hg 01/07/2025 Height 63 in 01/07/2025 Blood pressure systolic 104 mm Hg 01/07/2025 Weight 170 lbs 01/07/2025 BMI 30.11 kg/m2 01/07/2025 Encounters Encounter Location Date Provider Diagnosis [place] [address] [place] [address] 11/09/2024 Debbie Peterson [address] [address] 03/19/2025 Debbie Peterson Class 1 obesity E66. 9 ; Menstrual spotting N92.0 and OCD (obsessive compulsive disorder) F42.[address] [address] 11/05/2024 Debbie Peterson Class 1 obesity E66. 9 ; Menstrual spotting N92.0 and Wellness examination Z00.00 [place] [place] [address] 12/03/2024 Debbie Peterson Class 1 obesity E66. 9 and OCD (obsessive compulsive disorder) F42.9 [facility] [address] [place] [facility] [place] [address] 01/07/2025 Debbie Peterson Class 1 obesity E66. 9 [facility] [address] [place] [address] 01/04/2025 Saran Onofre Acute non-recurrent sinusitis, unspecified location J01.90 and Nasal congestion R09.81 Assessments Encounter Date Diagnosis (ICD Code) Assessment Notes Treatment Notes Treatment Clinical Notes Section Notes 11/05/2024 Class 1 obesity (ICD-10 - E66.9) work on diet handouts given CSA signed OARRS reviewed fu 11/05/2024 Menstrual spotting (ICD-10 - N92.0) is due for OBGYN visit, going to call and fu Eirn 12/03/2024 Class 1 obesity (ICD-10 - E66.9) work on diet hold adipex for one week and see if mood, SOB improves if so stop adipex if doesnt think SE and wants continue, fu nv 5 weeks 01/07/2025 Class 1 obesity (ICD-10 - E66.9) continue work on diet fu 2 months if wants to restart adipex 01/04/2025 Acute non-recurrent sinusitis, unspecified location (ICD-10 - J01.90) Rest and drink more liquids, especially water. You may use a humidifier or vaporizer to help keep the drainage moist. Gbrw-ruq-vlfojtp Nasal Saline may help the stuffy and runny nose. Use Ibuprofen and or Tylenol as needed for fever, chills, body aches or pain. Children 5 years old should not be given utlo-sce-hzwpkas cough and cold medications such as guaifenesin and dextromethorphan. If you're over age 5, you may try dduo-ixi-dgrhule cold medications such as guaifenesin and dextromethorphan, [...] symptoms do not improve within 3-5 days 03/19/2025 Class 1 obesity (ICD-10 - E66.9) 03/19/2025 Menstrual spotting (ICD-10 - N92.0) 03/19/2025 OCD (obsessive compulsive disorder) (ICD-10 - F42.9) 01/04/2025 Nasal congestion (ICD-10 - R09.81) 12/03/2024 OCD (obsessive compulsive disorder) (ICD-10 - F42.9) increase dose celexa fu 11/05/2024 Wellness examination (ICD-10 - Z00.00) Plan Of Treatment Pending Test Test Name Order Date HEMOGLOBIN A1C (GLYCO) 11/05/2024 IRON, TOTAL 11/05/2024 LIPID PANEL (CHOL/TRIG/HDL/LDL) 11/06/19 25 VITAMIN D, 25 LEVEL (TOTAL) 11/05/2024 Insulin Level 11/05/2024 CBC W/AUTO DIFF 03/19/2025 IRON 03/19/2025 THYROID PANEL (T4/TSH/FREE T3) Vitamin D 03/19/2025 CMP (COMP MET RUIZ) w/eGFR CKD-EPI 2024 CBC WITH DIFF 11/05/2024 Insurance Providers Payer Name Payer Address Payer Phone Subscriber Number Group Number Insured Name Patient Relationship to Insured Coverage Start Date Coverage End Date [employer] ACC[employer] PPO PLUS LOCAL PLAN [address] [place] [address] [id number] Chelsey Huynh Self - patient is the insured Medical (General) History Medical History History ICD Code ocd adhd Surgical History Surgery Date(Month/Year) c section x2 2010 and 2020
[2025-03-31 09:08] LABS: Age Gdln ACOG Testing Note (.); IGP, Aptima HPV, rfx 16/18,45 Note (.)
== END 2025-03-29 14:37 | disposition home or self-care (01) ==
LOC: LAB 14:36
PROVIDERS: PCP Nurse Practitioner Family; Visit Provider Nurse Practitioner Family
DX: Z01.419 Encounter for gynecological examination (general) (routine) without abnormal findings (principal)
CPT/HCPCS: 87624; 88175

== ENCOUNTER 2025-07-12 09:11 | Outpatient (OUT) | payer BC, SELFPAY ==
--- OUTSIDE RECORDS SUMMARY | 2024-02-26 04:00 | XMS_ITS ---
Author Organization [facility] [place] Address [address] [place] [address] Care Team Providers Care Plastic Products Sales Representative Name Role Phone Debbie Peterson Primary Care Provider REASON FOR VISIT med check Encounters Encounter Location Date Provider Diagnosis [facility] [address] [place] [address] 02/26/2024 Debbie Peterson Plan Of Treatment No Information Progress Notes * LINOChelsey Dozier CDOB: [birth year] (35 yo F)Acc No.[id number]:02/26/2024 UNLOCKED PROGRESS NOTE Progress Note Patient: Chelsey JEAN-BAPTISTE :?Debbie Peterson (UNIQUE), CNPDOB:1990 ???Age:34 Y???Sex:FemaleDate:4Phone:[phone]:[address] [place], [place] [address] Subjective: * Chief Complaints: * 1 . Med check. * Medical History: Objective: * Vitals: Assessment: Plan: * Treatment: * * Electronic signature of Debbie Peterson NP, POPULATION HEALTH COACH.BODY WORKER.[id number] on 07/12/2025 at 09:15 AM ESTSign off status: PendingVisit Status:?CANC (Cancelled) * Provider: Min CARR), BODY WORKER Date: 0 02/26/2024 Generated for Printing/Faxing/eTransmitting on:?07/12/2025 09:15 AM EST
--- OUTSIDE RECORDS SUMMARY | 2024-02-26 04:00 | XMS_ITS ---
Author Organization [facility] [place] Address [address] [place] [address] Care Team Providers Care Superintendent Mechanical Name Role Phone Debbie Peterson Primary Care Provider DEBBIE PETERSON Unavailable [phone] REASON FOR VISIT 1mon f/u bhs Encounters Encounter Location Date Provider Diagnosis [facility] [address] [facility] [place] [address] 02/26/2024 DEBBIE PETERSON Plan Of Treatment No Information Progress Notes * Chelsey HUYNH CDOB: [birth year] (35 yo F)Acc No.[id number]:02/26/2024 UNLOCKED PROGRESS NOTE Progress Note Patient: Chelsey JEAN-BAPTISTE :?Debibe Peterson CNPDOB:1990???Age:34 Y ???Sex:FemaleDate:4Phone:[phone]:[address] [place], [place] [address]Pcp:Debbie Peterson Subjective: * Chief Complaints: * 1 . 1mon f/u bhs. * Medical History: Objective: * Vitals: Assessment: Plan: * Treatment: * * Electronic signature of DEBBIE PETERSON NP on 07/12/2025 at 09:15 AM ESTSign off status: PendingVisit Status:?CANC (Cancelled) * Provider: Min Peterson CNP Date: 0 02/26/2024 Generated for Printing/Faxing/eTransmitting on:?07/12/2025 09:15 AM EST
--- OUTSIDE RECORDS SUMMARY | 2024-09-01 03:30 | XMS_ITS ---
Author Organization [facility] Address [address] [place] [address] Care Team Providers Care National Sales Director Name Role Phone Rita Liang Primary Care Provider [phone] Reyna Al Unavailable [phone] REASON FOR VISIT BH F/U Encounters Encounter Location Date Provider Diagnosis [place] [address] [facility] [place] [place] [address] 09/01/2024 Reyna Al Plan Of Treatment No Information Progress Notes * REENAAARON DozierZOYAOB: 8 (35 yo F)Acc No.[id number]:09/01/2024 F/U - Patient Patient: ROMANA JEAN-BAPTISTE :?Reyna Al LPCDOB:1990???Age:34 Y ???Sex:FemaleDate:09/01/2024Phone:[phone]:[address] [place], [place] [address]Pcp:Rita Liang Subjective: * Chief Complaints: * B H F/U Care Plan Details* * Electronic signature of Reyna Al LPC on 07/12/2025 at 08:33 AM ESTSign off status: Pending * Provider: Brad Al LPC Date: 0 09/01/2024 Generated for Printing/Faxing/eTransmitting on:?07/12/2025 08:33 AM EST
--- OUTSIDE RECORDS SUMMARY | 2024-09-08 03:30 | XMS_ITS ---
Author Organization [facility] Address [address] [place] [address] Care Team Providers Care Client Care Representative Name Role Phone Rita Liang Primary Care Provider [phone] Reyna Al Unavailable [phone] REASON FOR VISIT BH F/U Encounters Encounter Location Date Provider Diagnosis [place] [address] [facility] [place] [address] 09/08/2024 Reyna Al Plan Of Treatment No Information Progress Notes * REENAAARON DozierZOYAOB: 8 (35 yo F)Acc No.[id number]:09/08/2024 F/U - Patient Patient: ROMANA JEAN-BAPTISTE :?Reyna Al LPCDOB:1990???Age:34 Y ???Sex:FemaleDate:09/08/2024Phone:[phone]:[address] [place], [place] [address]Pcp:Rita Liang Subjective: * Chief Complaints: * B H F/U Care Plan Details* * Electronic signature of Reyna Al LPC on 07/12/2025 at 08:33 AM ESTSign off status: Pending * Provider: Brad Al LPC Date: 0 09/08/2024 Generated for Printing/Faxing/eTransmitting on:?07/12/2025 08:33 AM EST
--- OUTSIDE RECORDS SUMMARY | 2024-09-17 04:30 | XMS_ITS ---
Author Organization [facility] Address [address] [place] [address] Care Team Providers Care Technical Support Technician Name Role Phone Rita Liang Primary Care Provider Reyna Al Unavailable [phone] Lara Marquez Unavailable [phone] REASON FOR VISIT PROPHY Encounters Encounter Location Date Provider Diagnosis [facility] [address] [place] [address] 09/17/2024 Lara Marquez Plan Of Treatment No Information Progress Notes * AARON VALLESZOYAOB: 8 (35 yo F)Acc No.[id number]:09/17/2024 Patient:?ABBE VALLESHANIE :?Lara ManuelDOB:1990???Age:34 Y???Sex: FemaleDate:09/17/2024Phone:[phone]:[address] [place] [address]Pcp:Rita Liang Subjective: * Chief Complaints: * P ROPHY * Electronic signature of Lara Marquez on 07/12/2025 at 08:33 AM ESTSign off status: Pending * Provider: John Manuel Date: 0 09/17/2024 Generated for Printing/Faxing/eTransmitting on:?07/12/2025 08:33 AM EST
--- OUTSIDE RECORDS SUMMARY | 2024-10-13 03:30 | XMS_ITS ---
Author Organization [facility] Address [address] [place] [address] Care Team Providers Care Interior Design Faculty Member Name Role Phone Rita Liang Primary Care Provider Reyna Al Unavailable [phone] REASON FOR VISIT 2 week f/u Encounters Encounter Location Date Provider Diagnosis [place] [address] [place] [address] 10/13/2024 Reyna Al Plan Of Treatment No Information Progress Notes * REENAABBEADARSHOB: 8 (35 yo F)Acc No.[id number]:10/13/2024 F/U - Patient Patient: ABBE JEAN-BAPTISTEHANIE :?Reyna Al LPCDOB:1990???Age:34 Y ???Sex:FemaleDate:10/13/2024Phone:[phone]:[address] [place], [place] [address]Pcp:Rita Liang Subjective: * Chief Complaints: * 2 week f/u Care Plan Details* * Electronic signature of Reyna Al LPC on 07/12/2025 at 08:32 AM ESTSign off status: Pending * Provider: Brad Al LPC Date: 0 10/13/2024 Generated for Printing/Faxing/eTransmitting on:?07/12/2025 08:32 AM EST
--- OUTSIDE RECORDS SUMMARY | 2024-10-27 03:30 | XMS_ITS ---
Author Organization [facility] Address [address] [place] [address] Care Team Providers Care Distribution Dispatcher Name Role Phone Rita Liang Primary Care Provider Reyna Al Unavailable [phone] REASON FOR VISIT 2 week f/u Encounters Encounter Location Date Provider Diagnosis [place] [address] [place] [address] 10/27/2024 Reyna Al Plan Of Treatment No Information Progress Notes * REENA ABBEADARSHOB: 8 (35 yo F)Acc No.[id number]:10/27/2024 F/U - Patient Patient: ABBE JEAN-BAPTISTEHANIE :?Reyna Al LPCDOB:1990???Age:34 Y ???Sex:FemaleDate:10/27/2024Phone:[phone]:[address] [place], [place] [address]Pcp:Rita Liang Subjective: * Chief Complaints: * 2 week f/u Care Plan Details* * Electronic signature of Reyna Al LPC on 07/12/2025 at 08:32 AM ESTSign off status: Pending * Provider: Brad Al LPC Date: 0 10/27/2024 Generated for Printing/Faxing/eTransmitting on:?07/12/2025 08:32 AM EST
--- OUTSIDE RECORDS SUMMARY | 2024-11-10 04:30 | XMS_ITS ---
Author Organization [facility] Address [address] [place] [address] Care Team Providers Care Paper Machine Supervisor Name Role Phone Rita Liang Primary Care Provider Reyna Al Unavailable [phone] REASON FOR VISIT 2 week f/u Encounters Encounter Location Date Provider Diagnosis [place] [address] [place] [address] 11/10/2024 Reyna Al Plan Of Treatment No Information Progress Notes * REENA ABBEADARSHOB: 8 (35 yo F)Acc No.[id number]:11/10/2024 F/U - Patient Patient: ABBE JEAN-BAPTISTEHANIE :?Reyna Al LPCDOB:1990???Age:34 Y ???Sex:FemaleDate:11/10/2024Phone:[phone]:[address] [place], [place] [address]Pcp:Rita Liang Subjective: * Chief Complaints: * 2 week f/u Care Plan Details* * Electronic signature of Reyna Al LPC on 07/12/2025 at 08:32 AM ESTSign off status: Pending * Provider: Brad Al LPC Date: 0 11/10/2024 Generated for Printing/Faxing/eTransmitting on:?07/12/2025 08:32 AM EST
--- OUTSIDE RECORDS SUMMARY | 2025-07-12 09:16 | XMS_ITS | Patient Health Record ---
Author Organization [facility] Address [address] [place] [address] Care Team Providers Care Technical Documentation Specialist Name Role Phone Rita Liang Primary Care Provider RosauraReyna crews Unavailable [phone] Lara Marquez Unavailable [phone] Allergies Allergen (clinical drug ingredient) Drug/Non Drug Allergy documented on EMR Reaction Allergy Type Onset Date Status acetaminophen / oxycodone Percocet hands get hot and red Drug Allergy ActiveLatexLatexrashAllergyActive Reason For Referral No Information Medications Medication SIG (Take, Route, Frequency, Duration) Notes Start Date End Date Status OLANZapine 2.5 MG Tablet 1 tablet Orally twice daily As needed ActiveVraylar 1.5 MG Capsule1 capsule Orally Once a day; Duration: 30 days 12/06/2023ctivehydrOXYzine Pamoate 50 MG CapsuleTAKE 1 CAPSULE BY MOUTH EVERY 6 HOURS NEEDEDActivelamoTRIgine 100 MG Tablet1 tablet Orally Once a day; Duration: 30 day(s)01/03/2024ctivebusPIRone HCl 15 MG Tablet1 tablet Orally Twice a day; Duration: 30 days01/03/2024ctiveProbioticActiveAdipex-P 37.5 MG Capsule1 capsule Orally Once a dayNot-Taking/PRNMultivitaminActivemetFORMIN HCl 1000 MG Tablet1 tablet with a meal Orally Once a dayActive Social History Tobacco Use: Social History Observation Description Date Details (start date - stop date) Never Smoker NA - NA Social History GeneralSocial InfoQuestionAnswerNotesDepression Screening (PHQ-9):Little interest or pleasure in doing thingsSeveral daysFeeling down, depressed, or hopelessSeveral daysTrouble falling or staying asleep, or sleeping too much Nearly every dayFeeling tired or having little energyNearly every dayPoor appetite or overeatingMore than half the daysFeeling bad about yourself-or that you are a failure or have let yourself or your family downNearly every day Trouble concentrating on things, such as reading the newspaper or watching televisionSeveral daysMoving or speaking so slowly that other people could have noticed. Or the opposite being so fidgetyor restless that you have been moving around a lot more than usualNearly every dayThoughts that you would be better off , or of hurting yourself in some waySeveral days(Consider Suicide Assessment Risk)Total Vkggq21LnounvjubkturOatayolyla severe depressionTobacco Screen:Are you a:never smokerAlcohol Screening:Did you have a drink containing alcohol in the past year?Yes? How often did you have a drink containing alcohol in the past year?Monthly or less (1 point)? How many drinks did you have on a typical day when you were drinking in the past year?1 or 2 (0 points)? How often did you have six or more drinks on one occasion in the past year?Never (0 points)Ovlihe7NpmloueifxhvusVagfynow Problems Problem Type SNOMED Code ICD Code Onset Dates Problem Status W/U Status Risk Notes Problem Anxiety (68103856) Anxiety (F41.9) ActiveconfirmedProblemMixed anxiety and depressive disorder (430027827) Depression with anxiety (F41.8)ActiveconfirmedProblemMood disorder (69725648) Mood disorder (F39)ActiveconfirmedProblemObsessive-compulsive disorder (367898261)OCD (obsessive compulsive disorder) (F42.9)ActiveconfirmedProblem Obese class I (305893408919631)BMI 33.0-33.9,adult (Z68.33)Activeconfirmed ProblemObese class I (961686597194456)BMI 33.0-33.9,adult (Z68.33)Active confirmedProblemBMI 30+ - obesity (828523775)BMI 32.0-32.9,adult (Z68.32)Active confirmedProblemBody mass index 30.00 to 34.99 (152835895704412)BMI 31.0- 31.9,adult (Z68.31)ActiveconfirmedProblemBody mass index 30+ - obesity (682597586)BMI 30.0-30.9,adult (Z68.30)ActiveconfirmedProblemRecurrent major depression (04536599)Major depressive disorder, recurrent episode with anxious distress (F33.9)Activeconfirmed Encounters Encounter Location Date Provider Diagnosis [place] [address] [place] [address] 08/06/2024 Reyna Al OCD (obsessive compulsive disorder) F42.9 [address] [place] [address] 08/27/2024 Reyna Hollmars OCD (obsessive compulsive disorder) F42.9 [address] [place] [address] 09/15/2024 Reyna Kaplanada Major depressive disorder, recurrent episode with anxious distress F33.9 [address] [place] [address] 09/29/2024 Reyna Hollada Major depressive disorder, recurrent episode with anxious distress F33.9 [facility] [address] [facility] [address] 08/11/2024 Reyna Al Anxiety F41.9 Assessments Encounter Date Diagnosis (ICD Code) Assessment Notes Treatment Notes Treatment Clinical Notes Section Notes 08/06/2024 OCD (obsessive compulsive disord er) (ICD-10 - F42.9) 08/11/2024nxiety (ICD-10 - F41.9)08/27/2024OCD (obsessive compulsive disorder) (ICD-10 - F42.9)09/15/2024Major depressive disorder, recurrent episode with anxious distress (ICD-10 - F33.9)09/29/2024Major depressive disorder, recurrent episode with anxious distress (ICD-10 - F33.9) Plan Of Treatment No Information Insurance Providers Payer Name Payer Address Payer Phone Subscriber Number Group Number Insured Name Patient Relationship to Insured Coverage Start Date Coverage End Date ANTHEM Primary [address] [place] [address] [phone] [id number] MORGAN Spouse - patient is the spouse of the insured 4 [address] [place] MedicaidPO [address] [address] [place] [id number], STEPCLARENCEIESelf - patient is the [id number] Wrap [facility] [address] [place] [id number], STEPHANIESelf - patient is the [id number] [address] [place], [place] [id number], STEPHANIESelf - patient is the [id number] [address] [place] [id number], STEPHANIESelf - patient is the Medical (General) History Surgical History Surgery Date(Month/Year) csection x2 Hospitalization History Reason Date(Month/Year) See surgical
--- OUTSIDE RECORDS SUMMARY | 2025-07-12 09:16 | XMS_ITS | Patient Health Record ---
Author Organization [facility] in [place] Address [address] [place] [address] Care Team Providers Care Ict Developer Name Role Phone Debbie Peterson Primary Care Provider [phone] José MiguelkwadwoSaran [phone] Allergies Allergen (clinical drug ingredient) Drug/Non Drug Allergy documented on EMR Reaction Allergy Type Onset Date Status Latex latex (uncoded) itching Allergy Activeacetaminophen / oxycodonePercocethivesDrug AllergyActive Results Component Value Reference Range Notes CBC AUTO DIFF Reviewed date:11/09/2024 02:29:09 PM Interpretation: Performing Lab: Notes/Report: [facility] , White Blood Count 6.0 4.0-11.0 10 3/uL Red Blood Count4.674.20-5.40 10 6/oCOtzchwjzmk84.412.0-16.0 g/sVDkdfiwnihv76.7 36.0-48.0 %Mean Corpuscular Ojzhda41.981.0-99.0 fLMean Corpuscular Hemoglobin 26.626.7-34.0 pgMean Corpuscular HGB Conc32.029.9-35.2 g/dLRed Cell Distribution Width12.711.0-15.0 %Platelet Ihwmc479201-696 10 3/uLMean Platelet Izgvfg86.19.5- 13.5 fLNeutrophils Percent Auto57.243.0-75.0 %Lymphocytes Percent Auto33.620.5- 60.0 %Monocytes Percent Auto6.41.7-12.0 %Eosinophils Percent Auto2.20.9-7.0 % Basophils Percent Auto0.30.2-2.0 %Immature Granulocytes Pct Auto0.30.0-0.5 % Neutrophils Absolute Auto3.41.4-6.5 10 3/uLLymphocytes Absolute Auto2.01.2-3.8 10 3/uLMonocytes Absolute Auto0.40.3-0.8 10 3/uLEosinophils Absolute Auto0.10.0- 0.7 10 3/uLBasophils Absolute Auto0.00.0-0.1 10 3/uLImmature Granulocytes Abs Auto0.020.00-0.03 10 3/uLPerforming Lab:see noteML - [facility] LB GLYCOHEMOGLOBIN A1C Reviewed date:11/09/2024 02:29:09 PM Interpretation: Performing Lab: Notes/Report: [facility] ,Glycohemoglobin A1C5.54.5-6.2 % ADA THERAPEUTIC TARGET < 7.0 ADA RECOMMENDED LIMIT 4.0 - 6.0 > 7.0 ACTION SUGGESTED Estimated Average Cosiglb524Xdfykcphhc Lab:see noteML - [facility] LB IRON Reviewed date:11/09/2024 02:29:09 PM Interpretation: Performing Lab: Notes/Report: [facility] ,Iron50.050.0-170.0 ug/dLPerforming Lab:see noteML - [facility] LBCBC AUTO DIFF Reviewed date:11/26/2024 01:57:47 PM Interpretation: Performing Lab: Notes/Report: [facility] ,White Blood Count4.84.0-11.0 10 3/uLRed Blood Count5.014.20-5.40 10 6/uL Pqueedvtjb99.412.0-16.0 g/bWQtysypyvcp91.536.0-48.0 %Mean Corpuscular Mtxdzs27.8 81.0-99.0 fLMean Corpuscular Iwldvvvfdm51.726.7-34.0 pgMean Corpuscular HGB Conc 33.129.9-35.2 g/dLRed Cell Distribution Width13.011.0-15.0 %Platelet Oozxr279 150-450 10 3/uLMean Platelet Biklfc97.09.5-13.5 fLNeutrophils Percent Auto49.8 43.0-75.0 %Lymphocytes Percent Auto38.920.5-60.0 %Monocytes Percent Auto9.21.7- 12.0 %Eosinophils Percent Auto1.70.9-7.0 %Basophils Percent Auto0.20.2-2.0 % Immature Granulocytes Pct Auto0.20.0-0.5 %Neutrophils Absolute Auto2.41.4-6.5 10 3/uLLymphocytes Absolute Auto1.91.2-3.8 10 3/uLMonocytes Absolute Auto0.40.3-0.8 10 3/uLEosinophils Absolute Auto0.10.0-0.7 10 3/uLBasophils Absolute Auto0.00.0- 0.1 10 3/uLImmature Granulocytes Abs Auto0.010.00-0.03 10 3/uLPerforming Lab:see noteML - [facility] LBFREE T4 Reviewed date:11/26/2024 01:57:47 PM Interpretation: Performing Lab: Notes/Report: [facility] ,Free T41.320.76-1.46 ng/dLPerforming Lab:see noteML - [facility] LB GLYCOHEMOGLOBIN A1C Reviewed date:11/26/2024 01:57:47 PM Interpretation: Performing Lab: Notes/Report: [facility] ,Glycohemoglobin A1C5.84.5-6.2 % ADA THERAPEUTIC TARGET < 7.0 > 7.0 ACTION SUGGESTED ADA RECOMMENDED LIMIT 4.0 - 6.0 Estimated Average Pidtkih756Unrpjuhqmx Lab:see noteML - [facility] LB Progesterone Reviewed date:11/26/2024 01:57:47 PM Interpretation: Performing Lab: Notes/Report: [facility] ,Progesterone0.3. ng/mL Follicular phase 0.1 - 0.9 Luteal phase 1.8 - 23.9 Third trimester 58.7 - 214.0 Postmenopausal 0.0 - 0.1 Painter Helper: Jovani Morales PhD, Phone: [phone] Second trimester 25.4 - 83.3 First trimester 11.0 - 44.3 Performed at: - [address] [id number] Ovulation phase 0.1 - 12.0 Performing Lab:see note - [facility] LBLuteinizing Hormone(LH) Reviewed date:11/26/2024 01:57:47 PM Interpretation: Performing Lab: Notes/Report: [facility] ,Luteinizing Hormone(LH)9.0. mIU/mL Ovulation phase 14.0 - 95.6 Luteal phase 1.0 - 11.4 Adult Female Range Follicular phase 2.4 - 12.6 Postmenopausal 7.7 - 58.5 Performing Lab:see Petty - [facility] LBFSH Reviewed date:11/26/2024 01:57:47 PM Interpretation: Performing Lab: Notes/Report: [facility] ,FSH7.4. mIU/mL Adult Female Range Postmenopausal 25.8 - 134.8 Follicular phase 3.5 - 12.5 Luteal phase 1.7 - 7.7 Ovulation phase 4.7 - 21.5 Performing Lab:see Petty - Amber LBEstradiol Reviewed date:11/26/2024 01:57:47 PM Interpretation: Performing Lab: Notes/Report: [facility] ,Osvmhsnik86.6. pg/mL 1st trimester 215.0 - >4300.0 Luteal phase 43.8 - 211.0 Postmenopausal <6.0 - 54.7 Follicular phase 12.5 - 166.0 Ovulation phase 85.8 - 498.0 Adult Female Range Amara ECLIA methodology Performing Lab:see Petty - [facility] LBDHEA-Sulfate Reviewed date:11/26/2024 01:57:47 PM Interpretation: Performing Lab: Notes/Report: [facility] ,DHEA-Czcimxh299.057.3-279.2 ug/dLPerforming Lab:see nirmala - [facility] LBUA RANDOM W or MICROSCOPIC Reviewed date:11/27/2024 09:38:06 AM Interpretation: Performing Lab: Notes/Report: [facility] ,Color UrineLT. YELLOWYELLOWClarity UrineSL CLOUDYCLEARSpecific [place]ml[place] Urine 1.0101.005-1.025pH Urine7.05.0-9.0Protein UrineNEGATIVENEG/TRACE mg/dLGlucose Urine UANEGATIVENEGATIVE mg/dLBilirubin UrineNEGATIVENEGATIVEKetones Urine NEGATIVENEGATIVE mg/dLBlood UrineMODERATENEGATIVENitrite UrineNEGATIVENEGATIVE Urobilinogen Urine0.20.2-1.0 EU/dLLeukocyte Esterase UrineSMALLNEGATIVEWBC Urine 5-10NONE SEEN #/HPFRBC Urine0-20-2 #/HPFBacteria UrineMODERATENONE SEEN #/HPF Mucus UrineNONE SEENNONE SEENSquamous Epithelial Cell UrineMANYNONE/RARE #/LPF Crystals Seen?None SeenNone Seen #/HPFCast Seen?NONE SEENNONE SEEN #/LPFUrine Culture IndicatedYES-FRMCPerforming Lab:see noteML - [facility] LB Urine Culture - [facility] Reviewed date:11/30/2024 11:44:15 AM Interpretation: Performing Lab: Notes/Report: [facility] ,Urine Culture - FRMCSee Below For Report >100,000 colonies/ml mixed Urine Culture - FR Urine Culture - FRMCbacterial skin contaminants >100,000 colonies/ml mixed Urine Culture - [facility] Urine Culture - [facility]2 Days >100,000 colonies/ml mixed Urine Culture - [facility] Urine Culture - [facility] >100,000 colonies/ml mixed Urine Culture - FR Urine Culture - FRMCTesting performed at [facility] >100,000 colonies/ml mixed Urine Culture - FR Urine Culture - [id number] [place] [address] >100,000 colonies/ml mixed Urine Culture - [facility] Performing Lab:see note - [facility] LBCT abdomen pelvis wo con Reviewed date:12/11/2024 12:05:33 PM Interpretation: Performing Lab: Notes/Report: Source Facility: [place] [address] [place] [address] CT Scan Report Signed Patient: CHELSEY HUYNH MR#: [id number] : 1990 Acct:[id number] Age/Sex: 34 / F ADM Date: 12/11/24 Loc: LAB Attending Dr: Ernestina Khan D.O. Ordering Physician: Ernestina Khan D.O. Date of Service: 12/11/24 Procedure(s): CT abdomen pelvis wo/w con Accession Number(s): [id number] cc: DEBBIE PETERSON [place] [address] Patient Name: CHELSEY HUYNH MRN: [id number] date: 1990 Sex: F Assigned Patient Location: LAB Current Patient Location: LAB Accession/Order Number: [id number] Exam Date: 12/11/2024 11:19 Report Date: 12/11/2024 [...] Rodriguez M.D. 12/11/2024 11:25 AM Dictation Location: [place] [address] Electronically authenticated by: [id number] Y Date: 12/11/2024 11:25 Dictated By: Moses Rodriguez M.D. Signed By: 12/11/241127 DD/ 24 TD/TT: Senior Mechanical Development Engineer:IGP,Aptima HPV,Age Gdln Reviewed date:03/31/2025 11:52:18 AM Interpretation: Performing Lab: Notes/Report: BRUSH-SPATULA CERVIX ENDOCERVIX [facility] ,Age Gdln ACOG TestingNote. Lulu Mccray MD, Performed at: Clinician Provided Cytology Information No. of containers..01 ThinPrep Vial <-Panic Low,>-Panic High,A-Abnormal,AA-Critical Abnormal Source.............Cervix;Endocervix [address] [facility] [place] [address] FLAG LEGEND: Age Algo ACOG Dejah... 30-65 01 L-Low Normal,H-High Normal,LL-Alert Low,HH-Alert High 01 =G [facility] TESTS RESULT FLAG UNITS REF RANGE LAB IGP, Aptima HPV, rfx 16/18,45Note. Satisfactory for evaluation. Endocervical and/or squamous metaplastic the use of an image guided system. Specimen adequacy: 02 [address] [facility] [place] [address] should not be used as the sole means of detecting cervical . 02 This liquid based ThinPrep(R) pap test was screened with DIAGNOSIS: 02 occur. uterine cervix. It is not a diagnostic procedure and detection of premalignant and malignant conditions of the Test Methodology: Note 02 Performed at: Performed by: 02 cancer. Both false-positive and false-negative reports do Lulu Mccray MD, The Pap smear is a screening test designed to aid in the <-Panic Low,>-Panic High,A-Abnormal,AA-Critical Abnormal Note: Note 02 L-Low Normal,H-High Normal,LL-Alert Low,HH-Alert High NEGATIVE FOR INTRAEPITHELIAL LESION OR MALIGNANCY. 02 [facility] FLAG LEGEND: Darlene Alves, Veneer Clipper Helper cells (endocervical component) are present. TESTS RESULT FLAG UNITS REF RANGE LAB Criteria not met, HPV Genotype not performed. HPV Genotype Reflex Note 02 HPV AptimaNegativeNegative [address] [place], [place] [id number] without differentiation. Performed at: [facility] This nucleic acid amplification test detects fourteen high- Painter Helper: Lulu Mccray MD, Phone: [phone] [address] [facility], [place] [id number] Performed at: =[facility] Painter Helper: Lulu Mccray MD, Phone: [phone] risk HPV types (16,18,31,33,35,39,45,51,52,56,58,59,66,68) Performing Lab:[facility] LB17-[place] Progesterone LCMS Reviewed date:12/17/2024 08:57:11 AM Interpretation: Performing Lab: Notes/Report: [facility] ,17-[place] Progesterone HHLA468. ng/dL Luteal 35 - 290 determined by [facility]. It has not been cleared or approved by the Food and Drug Administration. Adult Female Follicular 15 - 70 [address] [place], [place] [id number] Performed at: [facility] This test was developed and its performance characteristics Painter Helper: Tabatha Srinivasan MD, Phone: [phone] Performing Lab:see [facility] LBECG 12 lead Reviewed date:11/30/2024 11:44:16 AM Interpretation: Performing Lab: Notes/Report: Source Facility: [place] [address] [place] [address] Electrocardiograph Report Signed Patient: CHELSEY HUYNH MR#: [id number] : 1990 Acct:[id number] Age/Sex: 34 / F ADM Date: 11/26/24 Loc: ER Attending Dr: Ordering Physician: Reyna Garcia Date of Service: 11/26/24 Procedure(s): ECG 12 lead Accession Number(s): [id number] cc: [facility] Test Date: 2024-11-26 Pat Name: CHELSEY HUYNH Department: Room: - 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 Measurements Intervals [place] Rate: 86 P: 63 NH: 172 QRS: 98 QRSD: 88 T: 6 QT: 358 QTc: 401 Interpretive Statements 1100 Sinus rhythm Nonspecific Twave abnormality 7102 Moderate right axis deviation 9150 abnormal ECG Compared to ECG 12/25/2022 12:05:27 No significant changes Electronically Signed On 11-27-2024 18:41:44 EDT by FLAVIO SHARIF M.D. Dictated By: FLAVIO SHARIF Signed By: 11/27/24 1842 DD/ TD/TT: Senior Mechanical Development Engineer:SARS-CoV-2 Ag* Reviewed date:11/27/2024 09:38:06 AM Interpretation: Performing Lab: Notes/Report: [facility] ,SARS-CoV-2 AgNEGATIVENEGATIVE the detection of proteins from SARS-CoV-2, not for any other This test has not been FDA cleared or approved, but has been circumstances exist justifying the authorization of terminated or authorization is revoked sooner. CLIA that meet the requirements to perform moderate or high and/or diagnosis of Covid-19 under section 564(b)(1) of the viruses or pathogens. The emergency use of this test is authorized by the FDA under an Emergency Use Authorization Act, 21 U.S.C. 360bbb-3(b)(1), unless the declaration is authorized for the duration of the declaration that (EUA) for use by authorized laboratories certified under emergency use of in vitro diagnostic tests for detection complexity testing. This test has been authorized only for Performing Lab:see noteML - [facility] LBINFLUENZA A AND B AG Reviewed date:11/27/2024 09:38:06 AM Interpretation: Performing Lab: Notes/Report: [facility] ,Influenza Virus A AntigenNegative cannot be ruled out. Flu A antigen in the sample may be below the detection limit of the test. Negative for Flu A protein antigen. Infection due to Flu A Influenza Virus B AntigenNegative below the detection limit of the test. cannot be ruled out. Flu B antigen in the sample may be Negative for Flu B protein antigen. Infection due to Flu B Performing Lab:see noteML - [facility] LBD-DIMER Reviewed date:11/27/2024 09:38:06 AM Interpretation: Performing Lab: Notes/Report: [facility] ,D Dimer0.39<=0.59 mg/L FEU event cannot be diagnosed with certainty on the basis of the disease, cancer, liver disease, infection, inflammation, or anticoagulant therapy, stress, and generalized of disorders including advanced age, , coronary hospitalization. hematoma, DIC, trauma, post-surgery, diabetes, thrombolytic Increases in D-Dimer concentration observed with thromboembolic events can be variable due to localization, reference range. D-Dimers may also be elevated for a variety size, and age of the thrombus. Therefore, a thromboembolic Performing Lab:see noteML - [facility] LBCBC AUTO DIFF Reviewed date:11/27/2024 09:38:06 AM Interpretation: Performing Lab: Notes/Report: [facility] ,White Blood Count6.84.0-11.0 10 3/uLRed Blood Count5.014.20-5.40 10 6/uL Szpwrnhudn74.612.0-16.0 g/oSZishtntitp03.136.0-48.0 %Mean Corpuscular Jnzkai45.0 81.0-99.0 fLMean Corpuscular Iqbasmrgdd23.126.7-34.0 pgMean Corpuscular HGB Conc 33.929.9-35.2 g/dLRed Cell Distribution Width12.711.0-15.0 %Platelet Oejmp818 150-450 10 3/uLMean Platelet Osgkqf79.29.5-13.5 fLNeutrophils Percent Auto35.6 43.0-75.0 %Lymphocytes Percent Auto53.720.5-60.0 %Monocytes Percent Auto7.31.7- 12.0 %Eosinophils Percent Auto2.90.9-7.0 %Basophils Percent Auto0.40.2-2.0 % Immature Granulocytes Pct Auto0.10.0-0.5 %Neutrophils Absolute Auto2.41.4-6.5 10 3/uLLymphocytes Absolute Auto3.71.2-3.8 10 3/uLMonocytes Absolute Auto0.50.3-0.8 10 3/uLEosinophils Absolute Auto0.20.0-0.7 10 3/uLBasophils Absolute Auto0.00.0- 0.1 10 3/uLImmature Granulocytes Abs Auto0.010.00-0.03 10 3/uLPerforming Lab:see noteML - [facility] LBDHEA, Serum Reviewed date:11/30/2024 04:37:37 PM Interpretation: Performing Lab: Notes/Report: [facility] ,DHEA, Unhxl84580-845 ng/dL approved by the Food and Drug Administration. Painter Helper: Tabatha Srinivasan MD, Phone: [phone] determined by [facility]. It has not been cleared or Performed at: [address] [id number] This test was developed and its performance characteristics Performing Lab:see noteLC - [facility] LBTSH Reviewed date:11/26/2024 01:57:47 PM Interpretation: Performing Lab: Notes/Report: [facility] ,Thyroid Stimulating Hormone1.5980.358-3.740 uIU/mLPerforming Lab:see noteML - [facility] LBPREG QUANT HCG Reviewed date:11/26/2024 01:57:47 PM Interpretation: Performing Lab: Notes/Report: [facility] ,HCG Quantitative<1 10,000-100,000 5-6 WEEKS 10,000-100,000 2-3 MONTHS 15,000-200,000 6-8 WEEKS 1,000-50,000 4-5 WEEKS 50-500 1-2 WEEKS 5-50 0.2-1 WEEK 500-10,000 3-4 WEEKS 100-5,000 2-3 WEEKS Performing Lab:see noteML - [facility] LBVITAMIN D 25 [place] Reviewed date:11/09/2024 02:29:01 PM Interpretation: Performing Lab: Notes/Report: [facility] ,Vitamin D27.0 <20 ng/mL Vit D deficient >100 ng/mL Potential Toxicity 20-<30 ng/mL Vit D insufficient 30-100 ng/mL Vit D sufficient Performing Lab:see noteML - [facility] LBTSH Reviewed date:11/09/2024 02:29:09 PM Interpretation: Performing Lab: Notes/Report: [facility] ,Thyroid Stimulating Hormone1.9730.358-3.740 uIU/mLPerforming Lab:see noteML - [facility] LBT4 Reviewed date:11/09/2024 02:29:09 PM Interpretation: Performing Lab: Notes/Report: [facility] ,T4 Thyroxine8.604.80-13.90 ug/dLPerforming Lab:see noteML - [facility] LBPROF 14(COMP METB) Reviewed date:11/09/2024 02:29:09 PM Interpretation: Performing Lab: Notes/Report: [facility] ,Hlpprh865165-635 mmol/LPotassium4.23.5-5.1 mmol/UNjpvnhsy60107-492 mmol/LCarbon Wxpjbxj30.021.0-32.0 mmol/LAnion Gap12.4Qususpw6655-940 mg/dLBlood Urea Nitrogen 9.07.0-18.0 mg/dLCreatinine0.760.55-1.02 mg/dLEstimated GFR ( Shona>60 >=60 mL/min/1.73m 2Estimated GFR (Non- Diann>60>=60 mL/min/1.73m 2BUN Creatinine Ratio11.4Pnzfkab2.88.5-10.1 mg/dLBilirubin Total0.30.2-1.0 mg/dL Aspartate Amino Pqncsxhscbc0111-28 U/LAlanine Vjkuxosvxnwpcoxi0757-22 U/L Alkaline Eeiiixpbdqm7492-160 U/LTotal Protein7.16.4-8.2 g/dLAlbumin Level3.63.4- 5.0 g/dLGlobulin3.5Albumin Globulin Ratio1.0Performing Lab:see [facility] LBLIPID PROFILE Reviewed date:11/09/2024 02:29:09 PM Interpretation: Performing Lab: Notes/Report: [facility] ,Vrijounrjrfsf52<=150 mg/oIAfrgrykgltc233<=200 mg/dLHDL Fcayodewolu6019-43 mg/dL > or =60 mg/dl - LOW CARDIOVASCULAR RISK <40 mg/dl - HIGH CARDIOVASCULAR RISK LDL Cholesterol Vshrbyykse21.0 160-189 mg/dl HIGH <100 mg/dl OPTIMAL 130-159 mg/dl BORDERLINE HIGH >190 mg/dl VERY HIGH 100-129 mg/dl NEAR OR ABOVE OPTIMAL VLDL CHOLESTEROL9.0Chol HDL Ratio2.4 4.4 - 7.1 AVERAGE RISK 7.1 - 11.0 MODERATE RISK 3.3 - 4.4 LOW RISK >11.0 HIGH RISK Performing Lab:see note - [facility] LBINSULIN Reviewed date:11/10/2024 09:29:09 AM Interpretation: Performing Lab: Notes/Report: [facility] ,Xqasscq25.22.6-24.9 uIU/mL Painter Helper: Jovani Morales PhD, Phone: [phone] Performed at: [address] [id number] Performing Lab:see [facility] LBFREE T3 Reviewed date:11/09/2024 02:29:09 PM Interpretation: Performing Lab: Notes/Report: [facility] ,Free T32.742.18-3.98 pg/mLPerforming Lab:see noteML - [facility] LB Troponin I High Sensitivity Reviewed date:11/27/2024 09:38:06 AM Interpretation: Performing Lab: Notes/Report: [facility] ,Troponin I High Sensitivity<4.04.0-51.3 pg/mL PERCENTILE OF cTnI DISTRIBUTION IN A REFERENCE POPULATION, WITH OTHER DIAGNOSTIC AND CLINICAL INFORMATION. UNIVERSAL DEFINITION OF MYOCARDIAL INFARCTION. THE UPPER NOTE: HIGH-SENSITIVITY TROPONIN ASSAY IS NOT INTENDED TO BE HAS BEEN CONFIRMED THE DECISION THRESHOLD FOR OK CUT-OFF POINTS HAVE BEEN ESTABLISHED BASED ON THE FOURTH 99TH PERCENTILE = 51.4 PG/ML USED IN ISOLATION BUT SHOULD BE INTERPRETED IN CONJUNCTION DIAGNOSIS. REFERENCE LIMIT (URL) OF TROPONIN, DEFINED THE 99TH Performing Lab:see noteML - [facility] LBPROF 14(COMP METB) Reviewed date:11/27/2024 09:38:06 AM Interpretation: Performing Lab: Notes/Report: [facility] ,Wyzpmh280167-306 mmol/LPotassium3.63.5-5.1 mmol/SIpjzpcyo08125-849 mmol/LCarbon Tdcvzjr85.521.0-32.0 mmol/LAnion Gap11.7Bynlqee04963-433 mg/dLBlood Urea Gkudvbsu09.07.0-18.0 mg/dLCreatinine1.070.55-1.02 mg/dLEstimated GFR ( Shona>60>=60 mL/min/1.73m 2Estimated GFR (Non- Ame58>=60 mL/min/1.73m 2 BUN Creatinine Ratio10.0Kjllrzx1.58.5-10.1 mg/dLBilirubin Total0.60.2-1.0 mg/dL Aspartate Amino Cvixpbnnacx5770-66 U/LAlanine Mzgmgblnwblddarm8375-96 U/L Alkaline Lnkknrdzzpg7829-344 U/LTotal Protein7.56.4-8.2 g/dLAlbumin Level3.63.4- 5.0 g/dLGlobulin3.9Albumin Globulin Ratio0.9Performing Lab:see noteML - [facility] LB Reason For Referral No Information Medications Medication SIG (Take, Route, Frequency, Duration) Notes Start Date End Date Status metFORMIN HCl 1000 MG 1 tablet with a meal Orall y Once a day ActiveCitalopram Hydrobromide 40 MGTAKE 1 TABLET BY MOUTH EVERY DAY FOR 30 DAYS; Duration: 90 daysActive Social History Tobacco Use: Social History Observation Description Date Details (start date - stop date) Never Smoker NA - NA Tobacco Control (Standard) Question Answer Notes Tobacco use: Nonsmoker AUDIT-C (Standard) Question Answer Notes Did you have a drink containing alcohol in the p ast year? No Jlxokw1XyyjhzwmmohlipXgotmorp Problems Problem Type SNOMED Code ICD Code Onset Dates Problem Status W/U Status Risk Notes Problem Morbid obesity (disorder) (10142 6002) Morbid (severe) obesity due to excess calories (E66.01) ActiveconfirmedProblemHyperglycemia (26346940)Hyperglycemia (R73.9)Active confirmedProblemVitamin D deficiency (10551811)Vitamin D deficiency (E55.9) ActiveconfirmedProblemParesthesia (36476126)Paresthesia (R20.2)Activeconfirmed ProblemMenstrual spotting (1592793)Menstrual spotting (N92.0)Activeconfirmed ProblemObsessive-compulsive disorder (734127516)OCD (obsessive compulsive disorder) (F42.9)ActiveconfirmedProblemObese class I (finding) (157920537602836) Class 1 obesity (E66.9)Activeconfirmed Vital Signs Temperature 99.8 degrees Fahrenheit 01/04/2025 Blood pressure trhigdkpi06 mm Hg07/12/20250685Hwwnri26 in07/12/2025lood pressure rymztgar398 mm Hg07/12/20256371Rliowl154.0 lbs109/12/2024BMI31.35 kg/m207/12/2025 Encounters Encounter Location Date Provider Diagnosis [place] [address] [place] [address] 01/04/2025 Saran Onofre Acute non-recurrent sinusitis, unspecified location J01.90 and Nasal congestion R09.81 [facility] [address] [place] [address] 01/07/2025 Debbie Peterson Class 1 obesity E66. 9 [facility] [address] [facility] [place] [address] 07/12/2025 Debbie Peterson Vitamin D deficiency E55.9 and Paresthesia R20.2 [facility] [address] [facility] [address] 11/05/2024 Debbie Peterson Class 1 obesity E66. 9 ; Menstrual spotting N92.0 and Wellness examination Z00.00 [facility] [address] [facility] [place] [address] 12/03/2024 Debbie Peterson Class 1 obesity E66. 9 and OCD (obsessive compulsive disorder) F42.9 [facility] [address] [facility] [place] [address] 11/09/2024 Debbie Peterson [facility] [facility] [place] [address] 03/19/2025Pamela KristenClass 1 obesity E66.9 ; Menstrual spotting N92.0 and OCD (obsessive compulsive disorder) F42.9 Assessments Encounter Date Diagnosis (ICD Code) Assessment Notes Treatment Notes Treatment Clinical Notes Section Notes 11/05/2024 Class 1 obesity (ICD-10 - E66.9) work on diet handouts given CSA signed OARRS reviewed fu 11/05/2024Menstrual spotting (ICD-10 - N92.0)is due for OBGYN visit, going to call and fu Fazio12/03/2024lass 1 obesity (ICD-10 - E66.9) work on diet hold adipex for one week and see if mood, SOB improves if so stop adipex if doesnt think SE and wants continue, fu pa 5 weeks 5Class 1 obesity (ICD-10 - E66.9) continue work on diet fu 2 months if wants to restart adipex 5Acute non-recurrent sinusitis, unspecified location (ICD-10 - J01.90) Rest and drink more liquids, especially water. You may use a humidifier or vaporizer to help keep the drainage moist. Jdds-cac-tfgheeg Nasal Saline may help the stuffy and runny nose. Use Ibuprofen and or Tylenol as needed for fever, chills, body aches or pain. Children 5 years old should not be given hkbj-uhc-vjndhwu cough and cold medications such as guaifenesin and dextromethorphan. If you're over age 5, you may try cilr-jyl-hbyahhu cold medications such as guaifenesin and dextromethorphan, or multi-symptom cold reliever such as Dayquil to help reduce the symptoms. Antibiotics have been pre scribed. You should take these until completed and follow the directions. Antibiotics can sometimescause upset stomach, and in rare cases, serious allergic reactions or serious gastrointestinal problems. If you start having severe abdominal pain, severe vomiting, or bloody diarrhea, you should be r eevaluated by your physician or urgent care immediately. Follow up with your Primary Care Provider or return to clinic if symptoms do not improve within 3-5 days07/12/2025Vitamin D deficiency (ICD-10 - E55.9)07/12/2025Paresthesia (ICD-10 - R20.2)03/19/2025lass 1 obesity (ICD-10 - E66.9)03/19/2025Menstrual spotting (ICD-10 - N92.0)03/19/2025OCD (obsessive compulsive disorder) (ICD-10 - F42.9) 01/04/2025Nasal congestion (ICD-10 - R09.81)12/03/2024OCD (obsessive compulsive disorder) (ICD-10 - F42.9) increase dose celexa fu 11/05/2024Wellness examination (ICD-10 - Z00.00) Plan Of Treatment Pending Test Test Name Order Date HEMOGLOBIN A1C (GLYCO) 11/05/2024 IRON, TOTAL 07/12/2025 IRON, TOTAL 11/05/2024 LIPID PANEL (CHOL/TRIG/HDL/LDL) 11/06/19 25 VITAMIN D, 25 LEVEL (TOTAL) 11/05/2024 VITAMIN D, 25 LEVEL (TOTAL) 07/12/2025 Insulin Level 11/05/2024 CBC W/AUTO DIFF 03/19/2025 IRON 03/19/2025 VIT B12 AND FOLATE 07/12/2025 THYROID PANEL (T4/TSH/FREE T3) THYROID PANEL (T4/TSH/FREE T3) Vitamin D 03/19/2025 CMP (COMP MET RUIZ) w/eGFR CKD-EPI 2024 CMP (COMP MET RUIZ) w/eGFR CKD-EPI 2024 CBC WITH DIFF 07/12/2025 CBC WITH DIFF 11/05/2024 Insurance Providers Payer Name Payer Address Payer Phone Subscriber Number Group Number Insured Name Patient Relationship to Insured Coverage Start Date Coverage End Date [employer] PPO PLUS LOCAL PLAN [address] [place] [address] [id number] [place] [employer] - patient is the insured Medical (General) History Medical History History ICD Code ocd adhdSurgical History Surgery Date(Month/Year) c section x2 2010
--- OUTSIDE RECORDS SUMMARY | 2025-07-12 09:16 | XMS_ITS | Clinical Summary ---
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 Take before meals. 30 tablet 01/16/2023ctive escitalopram (Lexapro) 20 MG tablet Take 20 mg by mouth in the morning.Active metFORMIN XR (Glucophage-XR) 500 MG 24 hr tablet Indications:PCOS (polycystic ovarian syndrome)Take 2 tablets (1,000 mg) by mouth in the evening. Take with meals Do not crush, chew, or split. 60 tablet ctive metFORMIN XR (Glucophage-XR) 500 MG 24 hr tablet Indications:PCOS (polycystic ovarian syndrome)Take 1 tablet (500 mg) by mouth in the evening. Take with meals Do not crush, chew, or split. 30 tablet Discontinued(Reorder) Active Problems ProblemNoted DateDiagnosed DatePCOS (polycystic ovarian syndrome)03/29/2025 Encounters DateTypeDepartmentCare QsjjJsrycelvylc78/01/2025Telephone [facility] [address] [place] [address] Clau Cardoza MA 05/05/2025Refill [facility] [address] [place] [address] Josefa Henson LPN PCOS (polycystic ovarian syndrome)from Last 3 Months Family History Medical HistoryRelationNameCommentsDiabetesFatherHypertensionFatherRelationName StatusCommentsFather Social History Tobacco UseTypesPacks/DayYears UsedDateSmoking Tobacco: NeverSmokeless Tobacco: Never Tobacco Cessation:Counseling Given: Not Answered Alcohol UseStandard Drinks/WeekCommentsNever0 (1 standard drink = 0.6 oz pure alcohol)CommentsNoSex and Gender InformationValueDate RecordedSex Assigned at BirthNot on fileLegal YgiPnfcen68/15/2023 10:09 PM EDTGender IdentityNot on fileSexual OrientationNot on file Last Filed Vital Signs Vital SignReadingTime TakenCommentsBlood Dhateepi765/70003/29/2025 9:34 AM EDT Pulse--Temperature--Respiratory Rate--Oxygen Saturation--Inhaled Oxygen Concentration--Qlgwxf31.7 kg (171 lb 6.4 oz)03/29/2025 9:34 AM EDPHgbjch323 cm (5' 3 )03/29/2025 9:34 AM EDTBody Mass Index30.36003/29/2025 9:34 AM EDT Plan of Treatment DateTypeDepartmentCare Team (Latest Contact Info)Gebvkmcjrcz05/10/2026 9:00 AM EDTProcedure Visit [facility] [address] [place] [address] Yonathan Khan DO [address] [place] [address] [place] [address] Health MaintenanceDue DateLast DoneCommentsCOVID-19 Vaccine ( season) /01/2021, 11/04/2020Influenza Vaccine (#1)501/ HPV/Wowijz5411/21/2027Cervical Cancer Xdbnqewqn10/08/2028Pap Smear03/29/2028 03/29/2025, 11/20/2022neumococcal Vaccine: Pediatrics (0 to 5 Years) and At- Risk Patients (6 to 64 Years)Aged OutNo longer eligible based on patient's age to complete this topic Procedures Procedure NamePriorityDate/TimeAssociated DiagnosisCommentsPAP SMEARRoutine 03/29/2025 12:00 AM EDTfrom Last 3 Months or Most Recently Relevant to Health Maintenance Results * Pap Smear (03/29/2025 12:00 AM EDT)Specimen (Source)Anatomical Location / LateralityCollection Method / VolumeCollection TimeReceived TimeSwabCervical swab / Unknown Narrative Authorizing ProviderResult TypeResult StatusFazio Nurse [facility] ObLAB CYTOLOGY ORDERABLESFinal ResultPerforming OrganizationAddressCity/State/ZIP CodePhone Number EXTERNAL LAB from Last 3 Months or Most Recently Relevant to Health Maintenance Insurance
[2025-07-12 09:37] LABS: Hematocrit 37.9 % (36.0-48.0); Hemoglobin 12.3 g/dL (12.0-16.0); Immature Granulocytes Abs Auto 0.01 10^3/uL (0.00-0.03); Immature Granulocytes Pct Auto 0.1 % (0.0-0.5); Lymphocytes Absolute Auto 1.6 10^3/uL (1.2-3.8); Mean Corpuscular HGB Conc 32.5 g/dL (29.9-35.2); Mean Corpuscular Hemoglobin 26.6 pg (26.7-34.0); Mean Corpuscular Volume 82.0 fL (81.0-99.0); Platelet Count 263 10^3/uL (150-450); Red Blood Count 4.62 10^6/uL (4.20-5.40); White Blood Count 7.2 10^3/uL (4.0-11.0)
[2025-07-12 10:21] LABS: Alanine Aminotransferase 17 U/L (14-59); Albumin Globulin Ratio 0.9; Albumin Level 3.5 g/dL (3.4-5.0); Alkaline Phosphatase 57 U/L (46-116); Anion Gap 10.2; Aspartate Amino Transferase 13 U/L (15-37); Blood Urea Nitrogen 7.0 mg/dL (7.0-18.0); Calcium 8.6 mg/dL (8.5-10.1); Carbon Dioxide 30.0 mmol/L (21.0-32.0); Chloride 104 mmol/L (98-107); Estimated GFR (African America >60 (>=60 mL/min/1.73m^2); Estimated GFR (Non-African Ame >60 (>=60 mL/min/1.73m^2); Free T3 2.17 pg/mL (2.18-3.98); Globulin 3.7 g/dL; Glucose 92 mg/dL (74-106); Potassium 4.2 mmol/L (3.5-5.1); Sodium 140 mmol/L (136-145); Thyroid Stimulating Hormone 1.608 uIU/mL (0.358-3.740); Total Protein 7.2 g/dL (6.4-8.2)
[2025-07-12 10:24] LABS: Iron 45.0 ug/dL (50.0-170.0)
[2025-07-12 10:51] LABS: Folate 13.40 ng/mL (8.60-58.90)
[2025-07-13 04:11] LABS: Vitamin B12 426 pg/mL (232-1245)
== END 2025-07-12 09:12 | disposition home or self-care (01) ==
LOC: LAB 09:12
PROVIDERS: PCP Nurse Practitioner Family; Visit Provider Nurse Practitioner Family
DX: E55.9 Vitamin D deficiency, unspecified (principal); R20.2 Paresthesia of skin
CPT/HCPCS: 36415; 80053; 82306; 82607; 82746; 83540; 84436; 84443; 84481; 85025